=== PATIENT | male | born 1965 | race Caucasian/White ===

== ENCOUNTER → 2020-10-14 14:59 | Outpatient (CLI) | payer OTHER, SELFPAY ==
[2020-10-14 19:58] LABS: Add Manual Diff / Slide Review NO; Basophils Absolute Auto 100 /uL (0-100); Basophils Percent Auto 0.8 % (0-2); Eosinophils Absolute Auto 200 /uL (0-450); Eosinophils Percent Auto 2.4 % (2-4); Hematocrit 44.4 % (41-53); Hemoglobin 15.1 g/dL (13.5-17.5); Lymphocytes Absolute Auto 2500 /uL (1100-4500); Lymphocytes Percent Auto 24.1 % (25-40); Mean Corpuscular HGB Conc 34.1 % (30-36); Mean Corpuscular Hemoglobin 31.5 PG (26-34); Mean Corpuscular Volume 92.4 fL (80-100); Monocytes Absolute Auto 500 /uL (0-900); Monocytes Percent Auto 5.2 % (3-14); Neutrophils Absolute Auto 7100 /uL (1500-7000); Neutrophils Percent Auto 67.5 % (50-75); Platelet Count 234 X10^3/uL (150-400); Red Blood Cell Count 4.81 X10^6/uL (4.5-5.9); Red Cell Distribution Width 13.6 % (11.6-14.8); White Blood Cell Count 10.5 X10^3/uL (4.5-11.0)
[2020-10-14 20:04] LABS: Alanine Aminotransferase 28 IU/L (<50); Albumin 4.1 g/dL (3.5-5.0); Albumin Globulin Ratio 1.1 (1.0-2.8); Alkaline Phosphatase 130 U/L (38-126); Aspartate Aminotransferase 70 IU/L (17-59); BUN Creatinine Ratio 16.3 (6-22); Bilirubin Total 0.7 mg/dL (0.2-1.3); Blood Urea Nitrogen 14 mg/dL (9-20); C-Reactive Protein Quant 2.6 mg/dL (<1.0); Calcium 9.6 mg/dL (8.4-10.2); Carbon Dioxide 24 mmol/L (22-32); Chloride 106 mmol/L (98-107); Estimated Glomerular Filt Rate > 60.0 mL/min (>60); Globulin 3.8 g/dL (1.7-4.1); Glucose 106 mg/dL (70-100); HEMOLYSIS < 15 (0-50); Potassium 4.1 mmol/L (3.4-5.1); Sodium 139 mmol/L (137-145); Total Protein 7.9 g/dL (6.3-8.2)
[2020-10-14 20:10] LABS: Erythrocyte Sedimentation Rate 46 MM/HR (0-15)
[2020-10-14 20:33] LABS: TSH w/ Reflex to FT4 2.74 uIU/mL (0.47-4.68)
[2020-10-15 09:47] LABS: Rheumatoid Factor < 8.6 IU/mL (<12.0)
== END ==
PROVIDERS: PCP Family Medicine; Visit Provider Family Medicine
DX: F41.9 Anxiety disorder, unspecified (principal); R00.0 Tachycardia, unspecified; R61 Generalized hyperhidrosis
CPT/HCPCS: 80053; 84443; 85025; 85651; 86140; 86430

== ENCOUNTER → 2022-07-14 14:10 | Outpatient (CLI) | payer OTHER, SELFPAY ==
[2022-07-14 19:49] LABS: Alanine Aminotransferase 19 IU/L (<50); Albumin 3.7 g/dL (3.5-5.0); Albumin Globulin Ratio 1.1 (1.0-2.8); Alkaline Phosphatase 125 U/L (38-126); Aspartate Aminotransferase 26 IU/L (17-59); BUN Creatinine Ratio 14.3 (6-22); Bilirubin Total 0.5 mg/dL (0.2-1.3); Blood Urea Nitrogen 14 mg/dL (9-20); Calcium 8.8 mg/dL (8.4-10.2); Carbon Dioxide 27 mmol/L (22-32); Chloride 104 mmol/L (98-107); Estimated Glomerular Filt Rate > 60 mL/min (>60); Globulin 3.4 g/dL (1.7-4.1); Glucose 95 mg/dL (70-100); HEMOLYSIS < 15 (0-50); Potassium 4.1 mmol/L (3.4-5.1); Sodium 137 mmol/L (137-145); Total Protein 7.1 g/dL (6.3-8.2)
[2022-07-14 19:50] LABS: Add Manual Diff / Slide Review NO; Basophils Absolute Auto 100 /uL (0-100); Basophils Percent Auto 0.8 % (0-2); Eosinophils Absolute Auto 200 /uL (0-450); Eosinophils Percent Auto 2.9 % (2-4); Hematocrit 39.5 % (41-53); Hemoglobin 13.7 g/dL (13.5-17.5); Lymphocytes Absolute Auto 1600 /uL (1100-4500); Lymphocytes Percent Auto 23.1 % (25-40); Mean Corpuscular HGB Conc 34.7 % (30-36); Mean Corpuscular Hemoglobin 29.2 PG (26-34); Mean Corpuscular Volume 84.3 fL (80-100); Monocytes Absolute Auto 300 /uL (0-900); Monocytes Percent Auto 4.5 % (3-14); Neutrophils Absolute Auto 4700 /uL (1500-7000); Neutrophils Percent Auto 68.7 % (50-75); Platelet Count 216 X10^3/uL (150-400); Red Blood Cell Count 4.69 X10^6/uL (4.5-5.9); Red Cell Distribution Width 13.9 % (11.6-14.8); White Blood Cell Count 6.8 X10^3/uL (4.5-11.0)
[2022-07-14 19:53] LABS: Cholesterol 200 mg/dL (140-199); HDL Cholesterol 39 mg/dL (40-60); LDL Cholesterol Calculated 136 mg/dL (<100); Triglycerides 126 mg/dL (35-150)
[2022-07-14 20:08] LABS: TSH w/ Reflex to FT4 1.77 uIU/mL (0.47-4.68)
[2022-07-14 20:12] LABS: Prostate Specific Antigen Scrn 0.782 ng/mL (0.1-4.0)
[2022-07-16 00:48] LABS: Labcorp Hemoglobin (Hb) A1c 5.3 % (4.8-5.6)
== END ==
PROVIDERS: PCP Family Medicine; Visit Provider Family Medicine
DX: I10 Essential (primary) hypertension (principal); Z13.1 Encounter for screening for diabetes mellitus; Z12.5 Encounter for screening for malignant neoplasm of prostate; R00.2 Palpitations; F41.9 Anxiety disorder, unspecified
CPT/HCPCS: 80053; 80061; 83036; 84443; 85025; G0103

== ENCOUNTER → 2022-07-17 08:39 | Outpatient (CLI) | payer OTHER, SELFPAY ==
--- NOTE | 2022-07-17 08:41 | DI.RAD.S_ITS ---
PROCEDURE: XR HAND LT MIN 3V INDICATIONS: bilateral hand pain. EVAL for signs of autoimmune TECHNIQUE: 3 views of the hand(s) acquired. COMPARISON: [facility] ([place]), CR, XR HAND LT MIN 3V, 10/14/2020, 15:02. [facility] ([place]), CR, XR HAND RT MIN 3V, 10/14/2020, 15:02. FINDINGS: Bones: No fractures or dislocations. Concern for erosion at the radial styloid. Carpal bones are normally aligned. Mild interphalangeal joint space narrowing. No suspicious bony lesions. Soft tissues: No suspicious soft tissue calcifications. IMPRESSION: Possible developing erosion at the radial styloid. This could be due to an inflammatory arthropathy. Dictated by: Eduar Jimenez M.D. on 07/17/2022 at 11:00 Approved by: Eduar Jimenez M.D. on 07/17/2022 at 11:03
--- NOTE | 2022-07-17 08:41 | DI.RAD.S_ITS ---
PROCEDURE: XR HAND RT MIN 3V INDICATIONS: bilateral hand pain. EVAL for signs of autoimmune TECHNIQUE: 3 views of the hand(s) acquired. COMPARISON: [facility] ([place]), CR, XR HAND RT MIN 3V, 10/14/2020, 15:02. FINDINGS: Bones: No fractures or dislocations. Carpal bones are normally aligned. Mild interphalangeal joint space narrowing. No osseous erosion is identified. No suspicious bony lesions. Soft tissues: No suspicious soft tissue calcifications. IMPRESSION: No osseous erosion is confirmed. Mild degenerative changes are again seen. Dictated by: Eduar Jimenez M.D. on 07/17/2022 at 11:03 Approved by: Eduar Jimenez M.D. on 07/17/2022 at 11:06
--- NOTE | 2022-07-17 08:41 | DI.RAD.S_ITS ---
PROCEDURE: XR CERVICAL SPINE 2V OR 3V INDICATIONS: unable to rotate or extend or flex cervical spine TECHNIQUE: 3 view(s) of the cervical spine were acquired. COMPARISON: None. FINDINGS: Bones: No fractures or dislocations to the C6 level. The lateral masses of C1 appear intact on the odontoid view. Prominent bridging anterior cervical spine osteophytes. No suspicious bony lesions. Soft tissues: No prevertebral soft tissue swelling. IMPRESSION: Large bridging anterior cervical spine osteophytes. Dictated by: Eduar Jimenez M.D. on 07/17/2022 at 11:09 Approved by: Eduar Jimenez M.D. on 07/17/2022 at 11:10
--- NOTE | 2022-07-17 08:41 | DI.RAD.S_ITS ---
PROCEDURE: XR ELBOW RT MIN 3V INDICATIONS: unable to rotate or extend or flex cervical spine TECHNIQUE: 3 views of the elbow were acquired. COMPARISON: [facility], CR, XR ELBOW LT MIN 3V, 07/17/2022, 8:42. FINDINGS: Bones: No fractures or dislocations. Osteophytic lipping. No suspicious bony lesions. Soft tissues: No posterior elbow joint effusion. No suspicious soft tissue calcifications. IMPRESSION: Moderate degenerative change. Dictated by: Eduar Jimenez M.D. on 07/17/2022 at 11:06 Approved by: Eduar Jimenez M.D. on 07/17/2022 at 11:08
--- NOTE | 2022-07-17 08:41 | DI.RAD.S_ITS ---
PROCEDURE: XR ELBOW LT MIN 3V INDICATIONS: contractures of bilateral elbows, no trauma TECHNIQUE: 3 views of the elbow were acquired. COMPARISON: [facility], CR, XR ELBOW RT MIN 3V, 07/17/2022, 8:42. FINDINGS: Bones: No fractures or dislocations. Osteophytic lipping. No suspicious bony lesions. Soft tissues: No elbow joint effusion. No suspicious soft tissue calcifications. IMPRESSION: [id number] degenerative change. Dictated by: Eduar Jimenez M.D. on 07/17/2022 at 11:08 Approved by: Eduar Jimenez M.D. on 07/17/2022 at 11:09
--- NOTE | 2022-07-17 08:41 | DI.RAD.S_ITS ---
PROCEDURE: XR HIP W PEL IF DONE LT 2V INDICATIONS: left hip pain TECHNIQUE: AP pelvis with lateral view(s) of the left hip(s). COMPARISON: [facility], , CT THORAX/ABDOMEN/PELVIS WITH CONTRAST, 02/18/2004, 14:13. FINDINGS: Bones: No fractures or dislocations. Pelvic ring appears intact. No suspicious bony lesions. Severe bone on bone left hip DJD. This is demonstrable by joint space loss and osteophytosis. There is also subchondral cystic change. Moderate to severe right hip DJD. Soft tissues: The visualized bowel gas pattern is normal. No suspicious soft tissue calcifications. IMPRESSION: Severe left hip DJD. Moderate to severe right hip DJD. Dictated by: Eduar Jimenez M.D. on 07/17/2022 at 11:11 Approved by: Eduar Jimenez M.D. on 07/17/2022 at 11:12
--- NOTE | 2022-07-17 08:41 | DI.RAD.S_ITS ---
PROCEDURE: XR LUMBAR SPINE 2-3V INDICATIONS: chronic low back pain, history of surgery TECHNIQUE: 3 views of the lumbar spine were acquired. COMPARISON: [facility], , CT THORAX/ABDOMEN/PELVIS WITH CONTRAST, 02/18/2004, 14:13. FINDINGS: Bones: 5 [id number] vertebrae are present. There is normal bony alignment. Prominent osteophytes. Loss of disc space height at L4-L5 L5-S1. No vertebral body compression fractures. No suspicious bony lesions. Soft tissues: Overlying bowel gas pattern is normal. No suspicious soft tissue calcifications. IMPRESSION: Moderate degenerative change in the lumbar spine. Dictated by: Eduar Jimenez M.D. on 07/17/2022 at 10:58 Approved by: Eduar Jimenez M.D. on 07/17/2022 at 11:00
[2022-07-17 10:02] LABS: Rheumatoid Factor < 8.6 IU/mL (<12.0)
[2022-07-17 10:06] LABS: Erythrocyte Sedimentation Rate 36 MM/HR (0-15)
[2022-07-17 11:06] LABS: Folate 7.3 ng/mL (2.76-20.0); Vitamin B12 387 pg/mL (239-931)
[2022-07-17 11:08] LABS: C-Reactive Protein Quant 1.9 mg/dL (<1.0)
[2022-07-18 03:40] LABS: RPR Screen Non Reactive (Non Reactive)
[2022-07-18 08:41] LABS: Labcorp Hemoglobin (Hb) A1c 5.3 % (4.8-5.6)
[2022-07-20 21:19] LABS: ANA Screen, IFA Negative (.); CCP Antibodies IgG/IgA <1 units (0-19)
== END ==
PROVIDERS: PCP Family Medicine; Referring Provider Family Medicine; Visit Provider Family Medicine
DX: M47.816 Spondylosis without myelopathy or radiculopathy, lumbar region (principal); M47.817 Spondylosis without myelopathy or radiculopathy, lumbosacral region; M43.6 Torticollis; M25.78 Osteophyte, vertebrae; M16.0 Bilateral primary osteoarthritis of hip; M79.641 Pain in right hand; M79.642 Pain in left hand; M24.521 Contracture, right elbow; M24.522 Contracture, left elbow; M25.552 Pain in left hip; M25.641 Stiffness of right hand, not elsewhere classified; M25.642 Stiffness of left hand, not elsewhere classified; R41.9 Unspecified symptoms and signs involving cognitive functions and awareness; L40.50 Arthropathic psoriasis, unspecified; Z13.1 Encounter for screening for diabetes mellitus
CPT/HCPCS: 36415; 72040; 72100; 73080; 73130; 73502; 82607; 82746; 83036; 85651; 86038; 86140; 86200; 86430; 86592

== ENCOUNTER → 2022-12-07 14:36 | Outpatient (CLI) | payer OTHER, SELFPAY ==
[2022-12-07 20:30] LABS: Add Manual Diff / Slide Review NO; Basophils Absolute Auto 100 /uL (0-100); Basophils Percent Auto 0.6 % (0-2); Eosinophils Absolute Auto 100 /uL (0-450); Eosinophils Percent Auto 0.8 % (2-4); Hematocrit 40.8 % (41-53); Hemoglobin 13.7 g/dL (13.5-17.5); Lymphocytes Absolute Auto 2000 /uL (1100-4500); Lymphocytes Percent Auto 17.9 % (25-40); Mean Corpuscular HGB Conc 33.6 % (30-36); Mean Corpuscular Hemoglobin 28.5 PG (26-34); Mean Corpuscular Volume 84.8 fL (80-100); Monocytes Absolute Auto 600 /uL (0-900); Monocytes Percent Auto 5.2 % (3-14); Neutrophils Absolute Auto 8500 /uL (1500-7000); Neutrophils Percent Auto 75.5 % (50-75); Platelet Count 222 X10^3/uL (150-400); Red Blood Cell Count 4.81 X10^6/uL (4.5-5.9); Red Cell Distribution Width 13.7 % (11.6-14.8); White Blood Cell Count 11.2 X10^3/uL (4.5-11.0)
[2022-12-07 20:34] LABS: Alanine Aminotransferase 21 IU/L (<50); Albumin 4.2 g/dL (3.5-5.0); Albumin Globulin Ratio 1.3 (1.0-2.8); Alkaline Phosphatase 102 U/L (38-126); Aspartate Aminotransferase 29 IU/L (17-59); BUN Creatinine Ratio 16.7 (6-22); Bilirubin Total 0.6 mg/dL (0.2-1.3); Blood Urea Nitrogen 19 mg/dL (9-20); C-Reactive Protein Quant 2.3 mg/dL (<1.0); Calcium 9.3 mg/dL (8.4-10.2); Carbon Dioxide 23 mmol/L (22-32); Chloride 102 mmol/L (98-107); Estimated Glomerular Filt Rate > 60 mL/min (>60); Globulin 3.3 g/dL (1.7-4.1); Glucose 90 mg/dL (70-100); HEMOLYSIS < 15 (0-50); Potassium 4.5 mmol/L (3.4-5.1); Sodium 137 mmol/L (137-145); Total Protein 7.5 g/dL (6.3-8.2)
[2022-12-07 20:58] LABS: Erythrocyte Sedimentation Rate 32 MM/HR (0-15)
[2022-12-07 22:05] LABS: Hep C Virus Ab w/Reflex Quant NEGATIVE s/c (NEGATIVE)
[2022-12-07 22:06] LABS: Hepatitis B Surface Antigen NEGATIVE s/c (NEGATIVE)
[2022-12-09 06:00] LABS: Hepatitis B Surf AB Quant 4.4 mIU/mL (Immunity>9.9)
[2022-12-09 06:00] LABS: Hepatitis B Core Antibody Negative (Negative)
[2022-12-09 08:16] LABS: QuantiFERON Mitogen Value >10.00 IU/mL (.); QuantiFERON Nil Value 0.01 IU/mL (.); QuantiFERON TB Gold Plus Negative (Negative); QuantiFERON TB1 Ag Value 0.01 IU/mL (.); QuantiFERON TB2 Ag Value 0.02 IU/mL (.)
== END ==
PROVIDERS: PCP Family Medicine; Referring Provider Specialist/Technologist Athletic Trainer; Visit Provider Specialist/Technologist Athletic Trainer
DX: L40.50 Arthropathic psoriasis, unspecified (principal)
CPT/HCPCS: 80053; 85025; 85651; 86140; 86480; 86704; 86706; 86803; 87340

== ENCOUNTER → 2022-12-09 07:20 | Outpatient (CLI) | payer OTHER, SELFPAY ==
[2022-12-11 21:56] LABS: IGF-1 115 ng/mL (68-247)
== END ==
PROVIDERS: PCP Family Medicine; Visit Provider Family Medicine
DX: E66.01 Morbid (severe) obesity due to excess calories (principal); M79.2 Neuralgia and neuritis, unspecified; Q75.8 Other specified congenital malformations of skull and face bones
CPT/HCPCS: 84305

== ENCOUNTER → 2023-01-26 14:35 | Outpatient (CLI) | payer OTHER, SELFPAY ==
[2023-01-26 19:28] LABS: Alanine Aminotransferase 18 IU/L (<50); Albumin Globulin Ratio 1.3 (1.0-2.8); Alkaline Phosphatase 121 U/L (38-126); Aspartate Aminotransferase 29 IU/L (17-59); BUN Creatinine Ratio 20.2 (6-22); Bilirubin Total 0.5 mg/dL (0.2-1.3); Blood Urea Nitrogen 18 mg/dL (9-20); C-Reactive Protein Quant 2.7 mg/dL (<1.0); Calcium 9.2 mg/dL (8.4-10.2); Carbon Dioxide 26 mmol/L (22-32); Chloride 100 mmol/L (98-107); Estimated Glomerular Filt Rate > 60 mL/min (>60); Globulin 3.1 g/dL (1.7-4.1); Glucose 97 mg/dL (70-100); HEMOLYSIS < 15 (0-50); Potassium 4.2 mmol/L (3.4-5.1); Sodium 135 mmol/L (137-145); Total Protein 7.1 g/dL (6.3-8.2)
[2023-01-26 19:36] LABS: Add Manual Diff / Slide Review NO; Basophils Absolute Auto 100 /uL (0-100); Basophils Percent Auto 0.8 % (0-2); Eosinophils Absolute Auto 100 /uL (0-450); Eosinophils Percent Auto 1.5 % (2-4); Hematocrit 39.9 % (41-53); Hemoglobin 13.5 g/dL (13.5-17.5); Lymphocytes Absolute Auto 1600 /uL (1100-4500); Lymphocytes Percent Auto 23.1 % (25-40); Mean Corpuscular HGB Conc 33.9 % (30-36); Mean Corpuscular Hemoglobin 29.4 PG (26-34); Mean Corpuscular Volume 86.6 fL (80-100); Monocytes Absolute Auto 400 /uL (0-900); Monocytes Percent Auto 6.1 % (3-14); Neutrophils Absolute Auto 4700 /uL (1500-7000); Neutrophils Percent Auto 68.5 % (50-75); Platelet Count 213 X10^3/uL (150-400); Red Blood Cell Count 4.61 X10^6/uL (4.5-5.9); Red Cell Distribution Width 14.5 % (11.6-14.8); White Blood Cell Count 6.9 X10^3/uL (4.5-11.0)
[2023-01-26 19:41] LABS: Erythrocyte Sedimentation Rate 36 MM/HR (0-15)
== END ==
PROVIDERS: Specialist/Technologist Athletic Trainer; PCP Family Medicine
DX: L40.50 Arthropathic psoriasis, unspecified (principal)
CPT/HCPCS: 80053; 85025; 85651; 86140

== ENCOUNTER → 2023-04-13 10:23 | Outpatient (CLI) | payer OTHER, SELFPAY ==
[2023-04-13 19:21] LABS: Add Manual Diff / Slide Review NO; Basophils Absolute Auto 100 /uL (0-100); Eosinophils Absolute Auto 200 /uL (0-450); Hematocrit 39.3 % (41-53); Hemoglobin 13.3 g/dL (13.5-17.5); Lymphocytes Absolute Auto 2100 /uL (1100-4500); Lymphocytes Percent Auto 36.4 % (25-40); Mean Corpuscular HGB Conc 33.9 % (30-36); Mean Corpuscular Volume 85.7 fL (80-100); Monocytes Absolute Auto 500 /uL (0-900); Monocytes Percent Auto 8.9 % (3-14); Neutrophils Absolute Auto 2900 /uL (1500-7000); Neutrophils Percent Auto 49.7 % (50-75); Platelet Count 235 X10^3/uL (150-400); Red Blood Cell Count 4.58 X10^6/uL (4.5-5.9); Red Cell Distribution Width 14.1 % (11.6-14.8); White Blood Cell Count 5.8 X10^3/uL (4.5-11.0)
[2023-04-13 19:49] LABS: Erythrocyte Sedimentation Rate 37 MM/HR (0-15)
[2023-04-13 19:56] LABS: Alanine Aminotransferase 16 IU/L (<50); Albumin 3.9 g/dL (3.5-5.0); Albumin Globulin Ratio 1.1 (1.0-2.8); Alkaline Phosphatase 108 U/L (38-126); Aspartate Aminotransferase 23 IU/L (17-59); BUN Creatinine Ratio 13.5 (6-22); Bilirubin Total 0.5 mg/dL (0.2-1.3); Blood Urea Nitrogen 20 mg/dL (9-20); C-Reactive Protein Quant 1.9 mg/dL (<1.0); Calcium 9.2 mg/dL (8.4-10.2); Carbon Dioxide 25 mmol/L (22-32); Chloride 102 mmol/L (98-107); Estimated Glomerular Filt Rate 55 mL/min (>60); Globulin 3.5 g/dL (1.7-4.1); Glucose 91 mg/dL (70-100); HEMOLYSIS < 15 (0-50); Potassium 4.5 mmol/L (3.4-5.1); Sodium 137 mmol/L (137-145); Total Protein 7.4 g/dL (6.3-8.2)
[2023-04-13 20:24] LABS: TSH w/ Reflex to FT4 2.59 uIU/mL (0.47-4.68)
[2023-04-16 20:11] LABS: IGF-1 74 ng/mL (68-247)
== END ==
PROVIDERS: PCP Family Medicine; Visit Provider Family Medicine
DX: R41.0 Disorientation, unspecified (principal); N39.0 Urinary tract infection, site not specified; M35.9 Systemic involvement of connective tissue, unspecified; I10 Essential (primary) hypertension; E66.01 Morbid (severe) obesity due to excess calories; M79.2 Neuralgia and neuritis, unspecified; Q75.8 Other specified congenital malformations of skull and face bones
CPT/HCPCS: 80053; 84305; 84443; 85025; 85651; 86140; 87077; 87086; 87186

== ENCOUNTER → 2023-07-02 11:03 | Outpatient (CLI) | payer OTHER, SELFPAY ==
[2023-07-02 19:10] LABS: Alanine Aminotransferase 15 IU/L (<50); Albumin 4.1 g/dL (3.5-5.0); Albumin Globulin Ratio 1.2 (1.0-2.8); Alkaline Phosphatase 117 U/L (38-126); Aspartate Aminotransferase 23 IU/L (17-59); BUN Creatinine Ratio 21.8 (6-22); Bilirubin Total 0.7 mg/dL (0.2-1.3); Blood Urea Nitrogen 41 mg/dL (9-20); Calcium 9.1 mg/dL (8.4-10.2); Carbon Dioxide 25 mmol/L (22-32); Chloride 107 mmol/L (98-107); Estimated Glomerular Filt Rate 41 mL/min (>60); Globulin 3.4 g/dL (1.7-4.1); Glucose 90 mg/dL (70-100); HEMOLYSIS < 15 (0-50); Potassium 4.3 mmol/L (3.4-5.1); Sodium 140 mmol/L (137-145); Total Protein 7.5 g/dL (6.3-8.2)
[2023-07-02 19:40] LABS: TSH w/ Reflex to FT4 1.55 uIU/mL (0.47-4.68)
[2023-07-02 19:43] LABS: Add Manual Diff / Slide Review NO; Basophils Absolute Auto 100 /uL (0-100); Basophils Percent Auto 1.2 % (0-2); Eosinophils Absolute Auto 200 /uL (0-450); Eosinophils Percent Auto 3.4 % (2-4); Ferritin 244 ng/mL (18-464); Hematocrit 38.3 % (41-53); Hemoglobin 12.5 g/dL (13.5-17.5); Lymphocytes Absolute Auto 2200 /uL (1100-4500); Lymphocytes Percent Auto 44.5 % (25-40); Mean Corpuscular HGB Conc 32.7 % (30-36); Mean Corpuscular Hemoglobin 28.8 PG (26-34); Mean Corpuscular Volume 88.1 fL (80-100); Monocytes Absolute Auto 100 /uL (0-900); Monocytes Percent Auto 1.2 % (3-14); Neutrophils Absolute Auto 2400 /uL (1500-7000); Neutrophils Percent Auto 49.7 % (50-75); Platelet Count 167 X10^3/uL (150-400); Red Blood Cell Count 4.35 X10^6/uL (4.5-5.9); Red Cell Distribution Width 14.5 % (11.6-14.8); White Blood Cell Count 4.9 X10^3/uL (4.5-11.0)
[2023-07-02 20:14] LABS: Folate > 20.0 ng/mL (2.76-20.0); Vitamin B12 Reflex MMA if <400 343 pg/mL (239-931)
[2023-07-06 09:15] LABS: Methylmalonic Acid,Serum 309 nmol/L (0-378)
== END ==
PROVIDERS: PCP Family Medicine; Visit Provider Family Medicine
DX: R53.83 Other fatigue (principal); I10 Essential (primary) hypertension; F41.9 Anxiety disorder, unspecified; Z79.1 Long term (current) use of non-steroidal anti-inflammatories (NSAID); L40.50 Arthropathic psoriasis, unspecified; Z71.3 Dietary counseling and surveillance
CPT/HCPCS: 80053; 82607; 82728; 82746; 83921; 84443; 85025

== ENCOUNTER 2023-07-29 18:58 | Emergency (ER) | payer OTHER, SELFPAY ==
[2023-07-29 19:04] VITALS: BP 175/81; PULSE 108; RESP 24; TEMP 36.4; O2SAT 98; BMI 40.1
[2023-07-29 19:32] LABS: Add Manual Diff / Slide Review NO; Basophils Absolute Auto 100 /uL (0-100); Basophils Percent Auto 0.7 % (0-2); Eosinophils Absolute Auto 0 /uL (0-450); Eosinophils Percent Auto 0.2 % (2-4); Hematocrit 38.2 % (41-53); Lymphocytes Absolute Auto 2000 /uL (1100-4500); Lymphocytes Percent Auto 20.8 % (25-40); Mean Corpuscular Hemoglobin 29.1 PG (26-34); Mean Corpuscular Volume 85.5 fL (80-100); Monocytes Absolute Auto 1000 /uL (0-900); Monocytes Percent Auto 10.4 % (3-14); Neutrophils Absolute Auto 6600 /uL (1500-7000); Neutrophils Percent Auto 67.9 % (50-75); Platelet Count 202 X10^3/uL (150-400); Red Blood Cell Count 4.46 X10^6/uL (4.5-5.9); Red Cell Distribution Width 14.7 % (11.6-14.8); White Blood Cell Count 9.7 X10^3/uL (4.5-11.0)
[2023-07-29 19:56] LABS: Alanine Aminotransferase 18 IU/L (<50); Albumin Globulin Ratio 1.4 (1.0-2.8); Alkaline Phosphatase 130 U/L (38-126); Aspartate Aminotransferase 35 IU/L (17-59); BUN Creatinine Ratio 11.1 (6-22); Bilirubin Total 1.4 mg/dL (0.2-1.3); Blood Urea Nitrogen 24 mg/dL (9-20); Carbon Dioxide 15 mmol/L (22-32); Chloride 103 mmol/L (98-107); Estimated Glomerular Filt Rate 35 mL/min (>60); Globulin 3.5 g/dL (1.7-4.1); Glucose 106 mg/dL (70-100); HEMOLYSIS < 15 (0-50); Lipase 169 U/L (23-300); Potassium 3.2 mmol/L (3.4-5.1); Sodium 136 mmol/L (137-145); Total Protein 8.5 g/dL (6.3-8.2)
--- NOTE | 2023-07-29 20:04 | DI.CT.S_ITS ---
PROCEDURE: CT ABDOMEN PELVIS W CON INDICATIONS: 8 DAYS LLQ/SUPRAPUBIC PAIN TECHNIQUE: After the administration of intravenous contrast, axial sections acquired from the lung bases to the pubic symphysis. Coronal and sagittal reformats were performed. For radiation dose reduction, the following was used: automated exposure control, adjustment of mA and/or kV according to patient size. COMPARISON: [facility] [place], CR, XR PELVIS WITH LATERAL HIP LEFT, 05/28/2023, 11:32. RG, CT THORAX/ABDOMEN/PELVIS WITH CONTRAST, 02/18/2004, 14:13. FINDINGS: Image quality: Diagnostic. Lower Chest: No significant findings. ABDOMEN: Liver: No solid mass. Steatosis. Gallbladder: No radiopaque gallstones or wall thickening. Biliary ducts: No biliary dilation. Pancreas: No ductal dilation. Spleen: Size is within normal limits. Adrenal Glands: No adrenal nodules. Kidneys and Ureters: No hydronephrosis. No solid mass. No complex renal cystic lesion which requires follow up. Stomach and Bowel: Normal colonic caliber, without significant wall thickening. Minimal scattered diverticula without associated inflammatory change. Peritoneum: No abnormal intraperitoneal fluid. No free air. Ventral Wall: No significant ventral hernia. Abdominal Nodes: No retroperitoneal or mesenteric adenopathy by size criteria. Vessels: Aorta and inferior vena cava are normal in size. PELVIS: Pelvic Organs: Unremarkable. Bladder: No bladder wall thickening, accounting for underdistention. Pelvic Nodes: No enlarged lymph nodes. Miscellaneous: No inguinal hernias are seen. Bones: No aggressive osseous abnormality. Prominent degenerative changes within the visualized thoracolumbar spine. IMPRESSION: Diverticulosis. Dictated by: Christy Adams M.D. on 07/29/2023 at 21:54 Approved by: Christy Adams M.D. on 07/29/2023 at 22:01
--- NOTE | 2023-07-29 20:09 | ED.ABDPAIN ---
HPI - Abdominal Pain General Chief Complaint: Abdominal Pain Stated Complaint: sweating, abd pain, emesis, anorexia high risk Time Seen by Provider: 07/29/23 19:56 Source: patient Mode of arrival: Wheelchair History of Present Illness HPI narrative: 57-year-old male with history psoriatic arthritis on methotrexate, degenerative joint disease presents by private vehicle from home for 8 days of LLQ abdominal pain, nausea. Patient states that he has lost weight in the last several months, however this is mostly intentional. Over the last several days however he has not been able to eat or drink very much due to significant nausea. He states that he has been tremulous and sweaty. Due to his chronic medical issues he was referred from his primary clinic to the emergency department for evaluation. Related Data Home Medications Medication Instructions Recorded Confirmed folic acid 1 mg tablet 1 mg PO DAILY 12/08/22 07/29/23 methotrexate sodium (PF) 25 mg/mL 25 mg SUBCUT QWEEK 12/08/22 07/29/23 injection solution trazodone 100 mg tablet 100 mg PO ONCE PM for insomnia 06/01/23 07/29/23 Previous Rx's Medication Instructions Recorded diltiazem HCl 120 mg See Rx Instructions .Route 06/23/22 capsule,extended release 24 hr .COMPLEX #30 caps betamethasone valerate 0.1 % 1 applic topical BID PRN Psoriasis 08/14/22 topical ointment #45 grams semaglutide 2 mg/dose (8 mg/3 mL) 2 mg (0.75 mL) SUBCUT QWEEK #3 mL 08/14/22 subcutaneous pen injector (Ozempic) lisinopril 10 1 tab PO DAILY #90 tabs 12/30/22 mg-hydrochlorothiazide 12.5 mg tablet semaglutide 3 mg tablet 3 mg PO DAILY 30 days #30 tabs 02/23/23 semaglutide 7 mg tablet 7 mg PO DAILY #30 tabs 02/23/23 sertraline 100 mg tablet 150 mg (1.5 x 100 mg) PO DAILY 02/23/23 #120 tabs clotrimazole 1 % topical cream 1 applic topical BID #60 grams 04/06/23 pregabalin 225 mg capsule 225 mg PO BID #60 caps 04/14/23 nitrofurantoin macrocrystal 100 mg 100 mg PO BID for urine infection 04/15/23 capsule #20 caps celecoxib 200 mg capsule 200 mg PO BID PRN for pain #60 caps 05/05/23 pregabalin 150 mg capsule 150 mg PO BID for pain, decrease 06/01/23 dose #60 caps fluconazole 150 mg tablet 150 mg PO QWEEK do NOT take daily. 07/01/23 yeast infection #6 tabs pregabalin 75 mg capsule 75 mg PO BID weaning off #60 caps 07/01/23 hydroxyzine HCl 50 mg tablet 50 mg PO ONCE PM PRN for itch #90 07/08/23 tabs promethazine 25 mg tablet 25 mg PO Q6H PRN nausea and 07/29/23 vomiting #30 tabs Allergies Allergy/AdvReac Type Severity Reaction Status Date / Time No Known Drug Allergies Allergy Verified 07/29/23 14:55 Review of Systems Review of Systems Narrative: See HPI Patient History Medical History Psoriatic arthritis Arthritis Left hip pain BPH (benign prostatic hyperplasia) Allergic dermatitis Morbid obesity due to excess calories Social History Smoking Status: Former smoker Smoking Status: Former smoker Substance Use Type: marijuana Exam Initial Vital Signs Initial Vital Signs: Vital Signs Temperature 97.6 F 07/29/23 19:04 Pulse Rate 108 H 07/29/23 19:04 Respiratory Rate 24 07/29/23 19:04 Blood Pressure 175/81 H 07/29/23 19:04 Pulse Oximetry 98 07/29/23 19:04 Oxygen Delivery Method Room Air 07/29/23 19:04 Const: Awake, alert, appears chronically unwell, older than stated age Cardiac: Tachycardia, regular rhythm RESP: unlabored, clear bilaterally, no wheezing GI: Soft, generalized tenderness to deep palpation without rebound or guarding Skin: Warm, Dry, intact, no rashes Neuro: AO x3, CN II-XII grossly intact, moves all extremities Course Orders Ordered: Discontinued Medications Acetaminophen (Ofirmev) 1,000 mg in 100 mls @ 400 mls/hr IV NOW ONE Stop: 07/29/23 20:18 Last Infusion: 07/29/23 21:27 Dose: Infused Documented By: DKLolly Admin: 07/29/23 21:04 Dose: 400 mls/hr Documented By: SAUNDRA Sodium Chloride (Normal Saline 0.9%) 1,000 mls @ 1,000 mls/hr IV BOLUS ONE Stop: 07/29/23 21:03 Last Infusion: 07/29/23 23:14 Dose: Infused Documented By: Admin: 07/29/23 21:10 Dose: 1,000 mls/hr Documented By: SAUNDRA Morphine Sulfate (Morphine 4 Mg/Ml Inj) 4 mg IV NOW ONE Stop: 07/29/23 21:04 Last Admin: 07/29/23 21:06 Dose: 4 mg Documented By: SAUNDRA Ondansetron HCl (Ondansetron 4 Mg Odt) 4 mg PO NOW PRN PRN Reason: Nausea And Vomiting Ondansetron HCl (Ondansetron 4 Mg/2 Ml Inj) 4 mg IV NOW PRN PRN Reason: Nausea And Vomiting Last Admin: 07/29/23 21:12 Dose: 4 mg Documented By: SAUNDRA Promethazine HCl (Promethazine 25 Mg Tablet) 50 mg PO NOW ONE Stop: 07/29/23 23:09 Last Admin: 07/29/23 23:14 Dose: 50 mg Documented By: ROSA Vital Signs Vital signs: Vital Signs - 8 hr 07/29/23 22:30 07/29/23 23:37 Pulse Rate 81 80 Respiratory Rate 19 20 Blood Pressure 143/89 H 128/86 Pulse Oximetry 98 100 MDM - Abdominal Pain Lab Data 07/29/23 19:25 07/29/23 19:25 Labs: Lab Results 07/29/23 Range/Units 19:25 WBC 9.7 (4.5-11.0) X10^3/uL RBC 4.46 L (4.5-5.9) X10^6/uL Hgb 13.0 L (13.5-17.5) g/dL Hct 38.2 L (41-53) % MCV 85.5 (80-100) fL MCH 29.1 (26-34) PG MCHC 34.0 (30-36) % RDW 14.7 (11.6-14.8) % Plt Count 202 (150-400) X10^3/uL Neut % (Auto) 67.9 (50-75) % Lymph % (Auto) 20.8 L (25-40) % [place] % (Auto) 10.4 (3-14) % Eos % (Auto) 0.2 L (2-4) % Baso % (Auto) 0.7 (0-2) % Neut # (Auto) 6600 (1909-3207) /uL Lymph # (Auto) 2000 (6852-7675) /uL [place] # (Auto) 1000 H (0-900) /uL Eos # (Auto) 0 (0-450) /uL Baso # (Auto) 100 (0-100) /uL Sodium 136 L (137-145) mmol/L Potassium 3.2 L (3.4-5.1) mmol/L Chloride 103 (98-107) mmol/L Carbon Dioxide 15 L (22-32) mmol/L BUN 24 H (9-20) mg/dL Creatinine 2.16 H (0.66-1.25) mg/dL Estimated GFR 35 L (>60) mL/min BUN/Creatinine Ratio 11.1 (6-22) Glucose 106 H (70-100) mg/dL Calcium 10.0 (8.4-10.2) mg/dL Total Bilirubin 1.4 H (0.2-1.3) mg/dL AST 35 (17-59) IU/L ALT 18 (<50) IU/L Alkaline Phosphatase 130 H (38-126) U/L Total Protein 8.5 H (6.3-8.2) g/dL Albumin 5.0 (3.5-5.0) g/dL Globulin 3.5 (1.7-4.1) g/dL Albumin/Globulin Ratio 1.4 (1.0-2.8) Lipase 169 (23-300) U/L Imaging Data CT scan - abdomen/pelvis: Radiologist's Impression: PROCEDURE: CT ABDOMEN PELVIS W CON INDICATIONS: 8 DAYS LLQ/SUPRAPUBIC PAIN TECHNIQUE: After the administration of intravenous contrast, axial sections acquired from the lung bases to the pubic symphysis. Coronal and sagittal reformats were performed. For radiation dose reduction, the following was used: automated exposure control, adjustment of mA and/or kV according to patient size. COMPARISON: [facility], CR, XR PELVIS WITH LATERAL HIP LEFT, 05/28/2023, 11:32. RG, CT THORAX/ABDOMEN/PELVIS WITH CONTRAST, 02/18/2004, 14:13. FINDINGS: Image quality: Diagnostic. Lower Chest: No significant findings. ABDOMEN: Liver: No solid mass. Steatosis. Gallbladder: No radiopaque gallstones or wall thickening. Biliary ducts: No biliary dilation. Pancreas: No ductal dilation. Spleen: Size is within normal limits. Adrenal Glands: No adrenal nodules. Kidneys and Ureters: No hydronephrosis. No solid mass. No complex renal cystic lesion which requires follow up. Stomach and Bowel: Normal colonic caliber, without significant wall thickening. Minimal scattered diverticula without associated inflammatory change. Peritoneum: No abnormal intraperitoneal fluid. No free air. Ventral Wall: No significant ventral hernia. Abdominal Nodes: No retroperitoneal or mesenteric adenopathy by size criteria. Vessels: Aorta and inferior vena cava are normal in size. PELVIS: Pelvic Organs: Unremarkable. Bladder: No bladder wall thickening, accounting for underdistention. Pelvic Nodes: No enlarged lymph nodes. Miscellaneous: No inguinal hernias are seen. Bones: No aggressive osseous abnormality. Prominent degenerative changes within the visualized thoracolumbar spine. IMPRESSION: Diverticulosis. Dictated by: Christy Adams M.D. on 07/29/2023 at 21:54 Approved by: Christy Adams M.D. on 07/29/2023 at 22:01 MDM Narrative Medical decision making narrative: Chronically unwell appearing patient presenting for greater than 1 week of symptoms. Initially patient seems to be quite tremulous and uncomfortable, however when taken to the exam room and allowed to rest patient's vital signs normalized. Abdomen is soft, there is vague tenderness to deep palpation in the left lower quadrant of the abdomen, no peritoneal signs. Nausea medications and IV fluids ordered. Patient states he would like some pain medications but is very opposed to opiates unless absolutely necessary. Laboratory work is reviewed. WBC count 9.7, hemoglobin 13, platelets 202, no neutrophil predominance. Sodium 136, potassium 3.2, BUN 24, creatinine 2.16, GFR 35. Patient does appear to have a slow but progressive worsening of his kidney function ever since March of 2023. Other laboratory work is unremarkable. Patient reassessed, resting in ED bed, vital signs stabilized. No longer diaphoretic or tremulous. Patient in his advised of all lab and imaging findings, stated I do not have a good explanation for his symptoms but recommended close PCP as well as GI follow up. Antinausea medication sent to pharmacy of choice. Patient's states she already has zofran at home, phenergan sent if zofran does not work well for patient. Discharge Plan Departure Patient Disposition: Home Clinical Impression: Abdominal pain Instructions: DI for Abdominal Pain-Adult Activity Restrictions/Additional Instructions: Your laboratory work today did not show any sign of infection or inflammation. Your kidney function was slightly elevated compared to previous, but your electrolytes are reassuring. Your CT scan showed that you have diverticulosis but no other acute abnormal process. Please follow up with the primary care physician. At this time I would recommend a GI follow up for your persistent abdominal pain. Antinausea medication has been sent to your pharmacy. Prescriptions: New promethazine 25 mg tablet 25 mg PO Q6H PRN (Reason: nausea and vomiting) Qty: 30 0RF No Action lisinopril-hydrochlorothiazide 10-12.5 mg tablet 1 tab PO DAILY Qty: 90 1RF nitrofurantoin macrocrystal 100 mg capsule 100 mg PO BID Qty: 20 0RF Rx Instructions: must administer with a meal/food celecoxib 200 mg capsule 200 mg PO BID PRN (Reason: for pain) Qty: 60 5RF hydroxyzine HCl 50 mg tablet 50 mg PO ONCE PM PRN (Reason: for itch) Qty: 90 0RF diltiazem HCl 120 mg capsule,extended release 24hr See Rx Instructions .ROUTE .COMPLEX Qty: 30 5RF Hold Instructions: lightnheaded with nl BP Dose Instruction: TAKE ONE CAPSULE BY MOUTH AT BEDTIME Rx Instructions: TAKE ONE CAPSULE BY MOUTH AT BEDTIME betamethasone valerate 0.1 % ointment 1 applic topical BID PRN (Reason: Psoriasis) Qty: 45 5RF Rx Instructions: Apply sparingly to affected areas Ozempic 2 mg/dose (8 mg/3 mL) pen injector 2 mg SUBCUT QWEEK Qty: 3 0RF Hold Instructions: insurance rejected Rx Instructions: 0.25 mg Q7d for at least 4 wk, then increase to 0.5mg Q7d for at least 4 wk, then increase to 1.0mg Q7d for at least 4wk, then 2.0mg Q7d and stay at this dose.. folic acid 1 mg tablet 1 mg PO DAILY methotrexate sodium (PF) 25 mg/mL solution 25 mg SUBCUT QWEEK Patient Comments: [NO ORIGINAL SIG] sertraline 100 mg tablet 150 mg PO DAILY Qty: 120 1RF Rx Instructions: Increase dose to 1.5 tablets q.day semaglutide 3 mg tablet 3 mg PO DAILY 30 Days Qty: 30 1RF Hold Instructions: insurance rejected Rx Instructions: For 1 month, Then increase dose to 7 mg per day semaglutide 7 mg tablet 7 mg PO DAILY Qty: 30 2RF Hold Instructions: insurance rejected Rx Instructions: Start 7 mg after completing 30 days of the 3 mg dose. Follow up with me after starting the 7 mg dose clotrimazole 1 % cream 1 applic topical BID Qty: 60 2RF Rx Instructions: to rash pregabalin 225 mg capsule 225 mg PO BID Qty: 60 1RF Hold Instructions: decreasing to 150mg Rx Instructions: stop 150mg BID. increase to 225mg BID trazodone 100 mg tablet 100 mg PO ONCE PM pregabalin 150 mg capsule 150 mg PO BID Qty: 60 2RF Rx Instructions: decrease dose (stop 225mg dose) fluconazole 150 mg tablet 150 mg PO QWEEK Qty: 6 0RF Rx Instructions: as a single dose- do not take daily. repeat every 7 days for 5 more weeks. pregabalin 75 mg capsule 75 mg PO BID Qty: 60 1RF Referrals: Jailene Addison MD [Primary Care Provider] - Stand Alone Forms: Patient Portal/API
[2023-07-29] MEDS: ACETAMINOPHEN IV 1,000 MG/100 ML VIAL 400 MG IV (21:04)
[2023-07-29] MEDS: MORPHINE 4 MG/ML INJ IV (21:06)
[2023-07-29] MEDS: SODIUM CHLORIDE 0.9% 1,000 ML 1000 ML IV (21:10)
[2023-07-29] MEDS: ONDANSETRON 4 MG/2 ML INJ IV (21:12)
[2023-07-29 22:30] VITALS: BP 143/89; PULSE 81; RESP 19; O2SAT 98
[2023-07-29] MEDS: PROMETHAZINE 25 MG TABLET 50 MG PO (23:14)
[2023-07-29 23:37] VITALS: BP 128/86; PULSE 80; RESP 20; O2SAT 100
== END 2023-07-29 23:38 | disposition home or self-care (01) ==
PROVIDERS: Emergency Provider Emergency Medicine; PCP Family Medicine
DX: R10.32 Left lower quadrant pain (principal); Z79.899 Other long term (current) drug therapy
CPT/HCPCS: 36415; 74177; 80053; 83690; 85025; 93005; 96365; 96375; 99284; J0136; J2270; J2405; Q9967

== ENCOUNTER → 2023-07-30 08:02 | Outpatient (CLI) | payer OTHER, SELFPAY | PROVIDERS: PCP Family Medicine; Visit Provider Family Medicine | DX: R10.9 Unspecified abdominal pain (principal) | CPT/HCPCS: 87086 ==

== ENCOUNTER → 2023-08-11 11:36 | Outpatient (CLI) | payer OTHER, SELFPAY ==
[2023-08-11 19:53] LABS: Alanine Aminotransferase 23 IU/L (<50); Albumin 4.3 g/dL (3.5-5.0); Albumin Globulin Ratio 1.5 (1.0-2.8); Alkaline Phosphatase 110 U/L (38-126); Aspartate Aminotransferase 34 IU/L (17-59); BUN Creatinine Ratio 11.9 (6-22); Bilirubin Total 0.8 mg/dL (0.2-1.3); Blood Urea Nitrogen 14 mg/dL (9-20); Calcium 9.3 mg/dL (8.4-10.2); Carbon Dioxide 24 mmol/L (22-32); Chloride 108 mmol/L (98-107); Estimated Glomerular Filt Rate > 60 mL/min (>60); Globulin 2.9 g/dL (1.7-4.1); Glucose 94 mg/dL (70-100); HEMOLYSIS < 15 (0-50); Potassium 4.1 mmol/L (3.4-5.1); Sodium 141 mmol/L (137-145); Total Protein 7.2 g/dL (6.3-8.2)
[2023-08-11 19:56] LABS: Add Manual Diff / Slide Review NO; Basophils Absolute Auto 100 /uL (0-100); Basophils Percent Auto 1.2 % (0-2); Eosinophils Absolute Auto 100 /uL (0-450); Eosinophils Percent Auto 1.3 % (2-4); Hematocrit 36.8 % (41-53); Hemoglobin 12.4 g/dL (13.5-17.5); Lymphocytes Absolute Auto 2500 /uL (1100-4500); Lymphocytes Percent Auto 28.9 % (25-40); Mean Corpuscular HGB Conc 33.8 % (30-36); Monocytes Absolute Auto 600 /uL (0-900); Monocytes Percent Auto 7.2 % (3-14); Neutrophils Absolute Auto 5200 /uL (1500-7000); Neutrophils Percent Auto 61.4 % (50-75); Platelet Count 294 X10^3/uL (150-400); Red Blood Cell Count 4.28 X10^6/uL (4.5-5.9); Red Cell Distribution Width 16.9 % (11.6-14.8); White Blood Cell Count 8.6 X10^3/uL (4.5-11.0)
[2023-08-11 20:22] LABS: TSH w/ Reflex to FT4 2.12 uIU/mL (0.47-4.68)
== END ==
PROVIDERS: PCP Family Medicine; Visit Provider Family Medicine
DX: N18.9 Chronic kidney disease, unspecified (principal); D64.9 Anemia, unspecified; R00.0 Tachycardia, unspecified
CPT/HCPCS: 80053; 84443; 85025

== ENCOUNTER → 2023-09-21 10:36 | Outpatient (CLI) | payer OTHER, SELFPAY ==
[2023-09-21 19:43] LABS: Add Manual Diff / Slide Review NO; Basophils Absolute Auto 100 /uL (0-100); Basophils Percent Auto 0.6 % (0-2); Eosinophils Absolute Auto 100 /uL (0-450); Eosinophils Percent Auto 1.1 % (2-4); Hemoglobin 11.8 g/dL (13.5-17.5); Lymphocytes Absolute Auto 1800 /uL (1100-4500); Lymphocytes Percent Auto 19.3 % (25-40); Mean Corpuscular HGB Conc 33.7 % (30-36); Mean Corpuscular Hemoglobin 30.2 PG (26-34); Mean Corpuscular Volume 89.4 fL (80-100); Monocytes Absolute Auto 600 /uL (0-900); Monocytes Percent Auto 6.1 % (3-14); Neutrophils Absolute Auto 6800 /uL (1500-7000); Neutrophils Percent Auto 72.9 % (50-75); Platelet Count 230 X10^3/uL (150-400); Red Blood Cell Count 3.91 X10^6/uL (4.5-5.9); Red Cell Distribution Width 15.7 % (11.6-14.8); White Blood Cell Count 9.3 X10^3/uL (4.5-11.0)
[2023-09-21 19:46] LABS: Prothrombin Time 11.7 SECONDS (9.4-12.5)
[2023-09-21 19:53] LABS: Alanine Aminotransferase 19 IU/L (<50); Albumin Globulin Ratio 1.3 (1.0-2.8); Alkaline Phosphatase 118 U/L (38-126); Aspartate Aminotransferase 33 IU/L (17-59); BUN Creatinine Ratio 19.2 (6-22); Bilirubin Total 0.7 mg/dL (0.2-1.3); Blood Urea Nitrogen 23 mg/dL (9-20); Carbon Dioxide 24 mmol/L (22-32); Chloride 106 mmol/L (98-107); Estimated Glomerular Filt Rate > 60 mL/min (>60); Glucose 95 mg/dL (70-100); HEMOLYSIS < 15 (0-50); Lactate Dehydrogenase 157 U/L (120-246); Potassium 4.1 mmol/L (3.4-5.1); Sodium 138 mmol/L (137-145)
[2023-09-21 19:54] LABS: Hemoglobin A1C% w Est Avg Glu 4.5 % (4.0-6.0)
[2023-09-21 19:59] LABS: HEMOLYSIS < 15 (0-50); Iron 68 ug/dL (49-181)
[2023-09-21 20:12] LABS: Percent Iron Saturation 25 % (20-50); Total Iron Binding Capacity 275 ug/dL (261-462); Transferrin 207 mg/dL (206-381)
[2023-09-21 20:23] LABS: Ferritin 199 ng/mL (18-464)
[2023-09-23 03:36] LABS: Haptoglobin 207 mg/dL (29-370)
== END ==
PROVIDERS: PCP Family Medicine; Visit Provider Family Medicine
DX: Z01.812 Encounter for preprocedural laboratory examination (principal); D64.9 Anemia, unspecified; I12.9 Hypertensive chronic kidney disease with stage 1 through stage 4 chronic kidney disease, or unspecified chronic kidney disease; N18.9 Chronic kidney disease, unspecified; R74.8 Abnormal levels of other serum enzymes; R00.0 Tachycardia, unspecified; L40.50 Arthropathic psoriasis, unspecified; R11.2 Nausea with vomiting, unspecified
CPT/HCPCS: 80053; 82728; 83010; 83036; 83540; 83550; 83615; 85025; 85610

== ENCOUNTER 2023-09-29 07:01 | Day surgery (SDC) | payer OTHER, SELFPAY ==
[2023-09-24 08:50] VITALS: BMI 44.5
[2023-09-29] VITALS (10 sets, daily range): BP systolic 117–145; BP diastolic 75–88; PULSE 89–105; RESP 11–20; TEMP 36.2–36.6; O2SAT 98–100; BMI 39.2
--- NOTE | 2023-09-29 | DI.RAD.S_ITS ---
PROCEDURE: XR PELVIS 1-2V INDICATIONS: INTRA OP TECHNIQUE: Intra-operative view of the pelvis and hip acquired. COMPARISON: None. FINDINGS: Bones: Intraoperative devices prior to placement of arthroplasty prostheses are in expected positions. No fractures or suspicious bony lesions. Soft tissues: Overlying surgical retractors are present, along with other intraoperative changes. IMPRESSION: Total left hip arthroplasty in progress Approved by: Brian Beauchamp M.D. on 09/29/2023 at 10:30
--- NOTE | 2023-09-29 07:29 | DI.RAD.S_ITS ---
PROCEDURE: XR HIP W PEL IF DONE LT 2V INDICATIONS: JOVAN TECHNIQUE: AP pelvis and lateral view of the hip acquired. COMPARISON: [facility], CR, XR HIP W PEL IF DONE LT 2V, 07/17/2022, 8:42. FINDINGS: Bones: Patient is status post left hip arthroplasty, with hardware components in expected positions. The hip joint appears congruent. The visualized bony structures appear intact. Soft tissues: Overlying postoperative changes are noted. No suspicious soft tissue densities. IMPRESSION: Expected post-operative appearance of a hip arthroplasty. Approved by: Zonia Luevano M.D.,Ph.D. on 09/29/2023 at 12:14
[2023-09-29] MEDS: CELECOXIB 200 MG CAPSULE 400 MG PO (07:49)
[2023-09-29] MEDS: ACETAMINOPHEN 325 MG TABLET 975 MG PO (07:52)
[2023-09-29] MEDS: VANCOMYCIN 1,000 MG/200 ML PIGGYBACK 200 MG IV (07:56)
[2023-09-29] MEDS: LACTATED RINGERS 1,000 ML 42 ML IV ×2 (08:22→11:12)
--- NOTE | 2023-09-29 08:37 | PM.PREOP ---
Pre-operative Note Interval Note History & Physical reviewed/Exam performed by Physician: Yes Changes to H&P: No
--- NOTE | 2023-09-29 08:38 | P.OP_ITS ---
Operative Date/Time/Diagnoses Date of procedure: 09/29/23 Time of procedure: 08:55 Pre-op diagnosis: left hip OA/ AVN severe Post-op diagnosis: same Procedure & Clinicians Procedure: Left total hip posterior approach Same procedure as scheduled: Yes Indications: The patient has had progressively worsening left hip pain with radiographic martínez ges consistent with arthritis. Non-operative management has failed and the patient has requested total hip replacement. The risks, benefits and alternatives to surgery were discussed with the patient prior to proceeding. Risks discussed included, but were not limited to, failure to relieve pain, leg length discrepancy, dislocation, stiffness, infection, nerve damage, deep venous thrombosis, pulmonary embolism, stroke, coma, heart attack, permanent paralysis and , as well as the potential need for eventual revision of the prosthetic. Surgeon: Argentina Lazo [place] Strip Inspector: Andrew Mejia Anesthesia Type: General Operative Notes Findings: Severe left hip OA, adequate stability Closure Type: primary Specimen(s): none sent Prosthetic devices, grafts, tissues, transplants, or devices: Lazo and nephew R3 size 62,one 6.5 mm screw, 40 +4 lateralized liner, size 40+ 4 Oxinium head, size 14 high offset Synergy Estimated Blood Loss (mL): 250 Blood products transfused: none Procedure in detail: The patient was seen in the pre-operative area, where the patient identified the left hip as the operative site and this was marked with my initials. The patient received pre-operative antibiotics and was taken to the operating room and placed on the operative table in the right lateral decubitus position after satisfactory anesthesia. A horse race timer out was performed. The left leg was prepared from the ankle to the iliac crest with ChloroPrep in the usual fashion and draped through sterile drapes. PA was used during the procedure was essential for intraoperative retraction and safe implantation of the components. The hip was approached through an approximately 20 cm incision centered over the greater trochanter and curving gently posteriorly as it went proximally. This was carried sharply to the fascia shawn, which was divided and retracted with a s elf retaining retractor. The trochanteric bursa was excised with care being taken to avoid the sciatic nerve, which was identified and protected throughout the case. The short external rotators were incised and the capsulomuscular flap was raised and tagged for later repair. The hip was dislocated, and a femoral neck osteotomy performed approximately 15 mm above the lesser trochanter. Retractors were placed around the femur. The canal was opened with a box cutting osteotome, followed by a T handled reamer and a lateralizing reamer. The chili pepper broach was then used, followed by sequential broaching until there was good stability of the broach in the femur. Retractors were placed to expose the acetabulum. The labrum and central soft tissues were removed. Reaming was performed initially going up in 2 mm increments, then 1 mm increments until good bite was obtained with an odd sized reamer. The cup 1 mm larger than the last reamer was then inserted using the appropriate anteversion guides. It was further stabilized with a single screw. A trial neutral liner was placed. The broach was placed in the canal. A trial head and neck were then placed and the hip relocated and checked for leg length and stability. An intraoperative film confirmed the component position and no evidence of fracture. The leg appeared to be a little bit short and with decreased offset. It was felt that we should probably increase the offset our leg lengths. I did a trial with a +4 and I also tried a +4 liner. There was better stability with a +4 liner and a +4 femoral head. He came to full extension in his leg lengths appeared equal. The patient was stable in the position of sleep, of squatting, and could be put through a range of motion with 45 degrees internal rotation without dislocation. At 90 degrees flexion, internal rotation to 70 ? was possible before dislocation. This was felt to be satisfactory and the appropriate components were opened, and the trials were removed. The acetabular liner was impacted into position. The final stem was then impacted into the prepared femoral canal. A brief Betadine soak was performed while trialing with head options. The hip was meticulously irrigated with normal saline. Finally the femoral head was impacted onto the stem. The acetabulum was cleared of all material and the hip relocated one final time. The capsulomuscular flap was then repaired to the greater trochanter though an awl hole using the tag sutures. The short external rotators were repaired with a nonabsorbable suture. A deep drain was placed and brought out anteriorly. The fascia shawn was closed with Vicryl. The subcutaneous layer was closed with barbed sutures and SteriStrips. A lolis dressing was applied and the patient was taken to recovery having tolerated the procedure well. Complications: none Post-operative Condition: stable Disposition: Acute Care Plan for aftercare: The patient will be maintained on a standard total hip replacement protocol with weight bearing as tolerated and posterior hip precautions. The patient will receive Aspirin and sequential compression devices for DVT prophylaxis. The patient will be discharged home when safe for the home environment.
[2023-09-29] MEDS: CEFAZOLIN VIAL 3 GM in SODIUM CHLORIDE 0.9% 100 ML IV (09:16)
[2023-09-29] MEDS: TRANEXAMIC ACID 1,000 MG VIAL 2000 MG INJ ×2 (09:20→11:15)
--- NOTE | 2023-09-29 09:44 | SUR.OPER ---
Lateral on padded OR bed. Gel axillary roll. Arms secured on padded armboard with pillow supporting top arm. Padded hip positioner braces x4 - anterior and posterior chest and pelvis. Additional gel pad used anterior pelvis. Gel pad under bottom leg from knee to foot and secured with tape over sheet. CONFIRMED BY DR. MORENO
[2023-09-29] MEDS: BUPIVACAINE 0.5% W/ EPI (PF) 30 ML VIAL INJ (09:57)
[2023-09-29] MEDS: BUPIVACAINE LIPOSOME 266 MG/20 ML VIAL INJ (11:20)
[2023-09-29] MEDS: ACETAMINOPHEN 325 MG TABLET 650 MG PO ×2 (13:03→19:44)
[2023-09-29] MEDS: LACTATED RINGERS 1,000 ML 100 ML IV (13:04)
[2023-09-29] MEDS: OXYCODONE IR 5 MG TABLET PO ×5 (13:04→22:45)
--- NOTE | 2023-09-29 14:17 | PC.NURSE ---
Pt arrived from PACU at 1215, A&Ox4 but drowsy, VSS on RA. C/o 7/10 pain to L hip and buttock. Dressing to L hip c/d/i. Lung sounds CTA, bowel sounds hypoactive, CMS intact. Pt and family at bedside oriented to room and call light. Bed in low position, call light within reach, SCDs on, bed alarm activated.
--- NOTE | 2023-09-29 15:00 | PT.IIE ---
Current Diagnoses Unilateral primary osteoarthritis, left hip (09/29/23) Surgery Performed Operation Date: 09/29/23 08:45 Actual Procedures p LEFT Total Hip Arthroplasty(Left) - Argentina Lazo MD Medical History (Last Updated 09/24/23 @ 10:09 by Modesta Millan RN) Allergic dermatitis Arthritis BPH (benign prostatic hyperplasia) Left hip pain Morbid obesity due to excess calories Psoriatic arthritis SVT (supraventricular tachycardia) Physical Therapy Inpatient Evaluation/Re-Eval M1 PT/OT-IP Prior Functional Status Start: 09/29/23 17:20 Freq: NEEDED Status: Active Protocol: Document 09/29/23 15:00 AB (Rec: 09/29/23 17:51 AB [id number]) Medical Review Prior Functional Status Medical History Reviewed Yes Communication able to make needs known; with slight confusion Mobility and Gait pt stated that he was independent with all mobilities and ambulation without AD Social History Household Members spouse,children Living Arrangements House Number of Floors (Floors) One Floor Number of Stairs To Enter/Railing? 2 platform steps to enter the house Home Environment High Toilet Home Equipment Four Wheel Walker,Hand Held Shower,Sock Aid,Grab Bars Near Toilet Additional Social History Comment pt stated that he also has his son to assist him at home if needed pt has a recliner that he can sleep on M2 PT-IP Current Condition Start: 09/29/23 17:20 Freq: NEEDED Status: Active Protocol: Document 09/29/23 15:00 AB (Rec: 09/29/23 17:51 AB [id number]) Physical Therapy Current Condition Current Condition Evaluation Date 09/29/23 Treatment Diagnosis s/p L JOVAN posterior; difficulty in walking Onset Date 09/29/23 M3 PT-IP Subjective Start: 09/29/23 17:20 Freq: NEEDED Status: Active Protocol: Document 09/29/23 15:00 AB (Rec: 09/29/23 17:51 AB [id number]) Subjective Physical Therapy Visit Type Type Initial Evaluation Visit Start Time 15:00 Visit Stop Time 16:35 Number of OVERLOCK SEWING MACHINE 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 Visits 0 Physical Therapy Visit Comments Patient Comments agreeable to do PT Therapy Pain Assessment Pain When Pain Assessed At Rest Pain Present Pain Present Pain Reported Location Left Hip Intensity 7 Scale Used increases with movement Pain Management Techniques Distraction,Modification of Treatment,Re-positioning, Timing of Activity with Medications M4 PT-IP Mobility and Gait Start: 09/29/23 17:20 Freq: NEEDED Status: Active Protocol: Document 09/29/23 15:00 AB (Rec: 09/29/23 17:51 AB [id number]) PT-Bed Mobility Assessment Supine to Sit Supine to Sit Maximum Assistance,Head of Bed Elevated,Bedrails PT-Transfer Assessment Sit to and From Stand Sit to and from Stand Minimal Assistance,Moderate Assistance,Maximum Assistance, 1 Person Assistance,Use of Upper Extremities Equipment Transfer Assistive Device Gait Belt,Front Wheeled Walker Orthotic/Prosthetic Devices or Brace: No Transfers Transfer Destination Bed Transfer Technique ambulated Transfer Ability Level of Assist Minimal Assistance,Moderate Assistance,1 Person Assistance ,Use of Upper Extremities Comments Mobility Comments pt supine in bed and agreeable to do PT. obtained PLOF and home set up from pt. post-op folder provided and reviewed contents to pt. pt educated regarding L hip posterior precautions. pt requires cues to recall. BP: 111/74. pt completed supine to sit x 2 attempts to be able to sit up max A and max cues. HOB elevated to assist and pt used bed rails as well. pt stated that he has a recliner at home that he can sleep on at this time. pt completed sit to stand max A and max cues. pt required max cues for precautions. LLE tends to internally rotate. cued to correct. pt somewhat resistant to instructions and stated that he has had hip pain for awhile and that is just how his body is moving. educated pt on safety and precautions. pt understood but continues to require max cues. pt ambulated in room ~ 12 ft to othe side of the bed using fWW mod A and max cues. pt refused to sit on the chair and just sat on EOB. pt educated on sit<>stand again with emphasis on techniques and precautions. pt completed sit to stand from EOB mod A and cues and ambulated in room using FWW min to mod A and cues. pt sat back on EOB. BP : 124/74 . pt needing max cues with all tasks and has difficulty following directions and can be resistive. pt wanting to go home regarding of what PT 's concerns are. spouse arrived and caregiver training conducted. educated spouse on how to use safety belt and how to assist pt. spouse was able to put safety belt on pt. educated pt and spouse on stair climbing. spouse assisted pt with sit to stand and ambulated pt to the platform step. pt completed up /down step using FWW mod A and max cues. PT needed to cue pt for technique. pt is impulsive. ask pt to do up/ down step again but refused and then c/o feeling dizzy. pt ambulated back to his room using FWW min to mod A and sat on EOB. after ~ 2 seconds of sitting on EOB, stated that he is feeling better. informed pt and spouse regarding PT's concerns for pt regarding mobility and safety . pt and spouse understood but pt wants to go home tonight. spouse stated that she will be able to manage assisting pt at home. spouse stated that he will get or even buy a FWW for pt to use tonight. informed nurse. Gait Assessment Gait Gait Assistance Required: Minimum Assistance,Moderate Assistance,1 Person Assist Distance (Feet) 20 Able to Maintain Weight Bearing Status Yes During Gait Assistive Devices Assistive Device Gait Belt,Front Wheeled Walker Orthotic/Prosthetic Devices or Brace: No Gait Deviations General Gait Pattern Antalgic,Decreased Stride Length,Decreased Feet Clearance Factors Limiting Gait Function Factors Limiting Gait Function Decreased Activity Tolerance, Decreased Strength,Difficulty Following Directions,Limited Range of Motion,Pain,Poor Balance,Poor Safety Awareness Stair Climbing Assessment Evaluation Level of Assist On Stairs Moderate Assistance Devices Stair Climbing Assistive Devices Front Wheel Walker Technique/Endurance Stair Climbing Direction Ascend and Descend Stair Climbing Technique Step to Step Number of Steps Climbed 1 Query Text: Stair Climbing Set # Repetitions (reps) 1 PT-Balance Assessment Sitting Balance and Reactions Static Sitting Balance Ability Good Dynamic Sitting Balance Ability Fair Standing Balance and Reactions Static Standing Balance Ability Fair Dynamic Standing Balance Ability Fair Device Used FWW M5 PT-IP Objective Assessments Start: 09/29/23 17:20 Freq: NEEDED Status: Active Protocol: Document 09/29/23 15:00 AB (Rec: 09/29/23 17:51 AB [id number]) Orientation Orientation/Cognition Level of Alertness Alert Orientation Name,Place,Situation Language Function Ability No Deficits Noted Safety Awareness Decreased Safety Awareness Memory Description Short Term Impaired Gross Range of Motion Lower Extremity ROM Assessment Within Functional Limits Strength Lower Extremity Strength Assessment Left Impaired Hip 3-/5 Knee 3+/5 Muscle Tone Muscle Tone WNL Yes M6 PT-IP Treatment Start: 09/29/23 17:20 Freq: NEEDED Status: Active Protocol: Document 09/29/23 15:00 AB (Rec: 09/29/23 17:51 AB [id number]) Physical Therapy Treatment Education Education Provided Precautions,Weight Bearing Status,Post-Op Packet,Safety M7 PT-IP Assessment and Plan Start: 09/29/23 17:20 Freq: NEEDED Status: Active Protocol: Document 09/29/23 15:00 AB (Rec: 09/29/23 17:51 AB [id number]) PT Summary Assessment and Plan Potential Rehabilitation Potential Fair Status of Condition at Evaluation Evolving Summary Impairments Pain,ROM,Strength,Balance, Coordination,Sensation,Tone, Cognition,Bed Mobility, Transfers,Gait,Activity Tolerance Assessment Summary pt is a 58 y/o M s/p L JOVAN posterior approach POD 0. pt has L hip posterior precautions and is WBAT on LLE . pt requiring max A for bed mobility, min to max for transfers using fWW, min to mod A for ambulation using FWW and mod A for up/down step using FWW. pt requires max cues with all tasks for techniques and precautions/ safety and pt can be impulsive and has difficulty following instructions. caregiver training conducted but further training is needed but pt stated that he is going home regardless and despite of safety concerns . spouse stated that she is comfortable assisting pt at home. pt continue to assess. Goals Bed Mobility Goal Standby Assistance Transfer Goal Standby Assistance,Front Wheeled Walker Gait Goal Standby Assistance,Front Wheel Walker Gait Distance 150 Other Goals improve bed mobility, transfers and ambulation using FWW 250 ft mod I up/down 2 platform steps using FWW SBA Days to Meet Goals 5 Frequency of Treatment Frequency Of Treatment Twice a Day Treatment Plan Physical Therapy Treatment Plan Bed Mobility Training,Transfer Training,Gait Training, Therapeutic Exercise,Balance Retraining,Post Op Education, Discharge Planning,Hot or Cold Pack,Neuromuscular Re-ed, Coordination Retraining,Manual Therapy Precautions Posterior Hip Precautions No Hip Flexion > 90 degrees,No Hip Internal Rotation,No Hip Adduction Weight Bearing Status Weight Bearing Status Weight Bear as Tolerated Allowed Weight Bearing Amount (enter % LLE WBAT or #) (%) Recommendations To Nursing Amount of Assist Needed 1 Person Assist Discharge Recommendations PT Discharge Recommendations Home with 19/10 Assist Available,Home Health Equipment Needed for Home Before FWW Discharge Transportation Needs at Discharge Private Vehicle,Wheelchair/ Cabulance
[2023-09-29] MEDS: CEFAZOLIN 2 GM/100 ML PREMIX 100 ML IV (19:03)
[2023-09-29] MEDS: IBUPROFEN 400 MG TABLET PO (19:44)
[2023-09-29] MEDS: ASPIRIN EC 81 MG TABLET PO (22:22)
[2023-09-29] MEDS: DOCUSATE 100 MG CAPSULE PO (22:22)
[2023-09-30] MEDS: CEFAZOLIN 2 GM/100 ML PREMIX 100 ML IV (00:50)
[2023-09-30] MEDS: LACTATED RINGERS 1,000 ML 100 ML IV (00:55)
[2023-09-30] MEDS: ACETAMINOPHEN 325 MG TABLET 650 MG PO (01:25)
[2023-09-30] MEDS: OXYCODONE IR 10 MG TABLET PO ×3 (01:25→06:41)
[2023-09-30 06:04] LABS: Hematocrit 29.5 % (41-53); Hemoglobin 9.9 g/dL (13.5-17.5)
[2023-09-30] MEDS: PANTOPRAZOLE DR 20 MG TABLET PO (06:41)
--- NOTE | 2023-09-30 08:30 | PT.IPTN ---
Current Diagnoses Unilateral primary osteoarthritis, left hip (09/29/23) Surgery Performed Operation Date: 09/29/23 08:45 Actual Procedures p LEFT Total Hip Arthroplasty(Left) - Argentina Lazo MD Physical Therapy Treatment Note M2 PT-IP Current Condition Start: 09/29/23 17:20 Freq: NEEDED Status: Active Protocol: Document 09/29/23 15:00 AB (Rec: 09/29/23 17:51 AB [id number]) Physical Therapy Current Condition Current Condition Evaluation Date 09/29/23 Treatment Diagnosis s/p L JOVAN posterior; difficulty in walking Onset Date 09/29/23 M3 PT-IP Subjective Start: 09/29/23 17:20 Freq: NEEDED Status: Active Protocol: Document 09/30/23 08:50 TS (Rec: 09/30/23 09:01 TS [id number]) Subjective Physical Therapy Visit Type Type Treatment Note Visit Start Time 08:30 Visit Stop Time 08:49 Number of COLLEGE COACH Visits 1 Physical Therapy Visit Comments Patient Comments Pt found resting sitting EOB, is agreeable to PT. Therapy Pain Assessment Pain When Pain Assessed During Mobility Pain Present Pain Present Pain Reported M4 PT-IP Mobility and Gait Start: 09/29/23 17:20 Freq: NEEDED Status: Active Protocol: Document 09/30/23 08:50 TS (Rec: 09/30/23 09:01 TS [id number]) PT-Bed Mobility Assessment Scooting Scooting to Edge of Bed Standby Assistance PT-Transfer Assessment Sit to and From Stand Sit to and from Stand Standby Assistance,Use of Upper Extremities Equipment Transfer Assistive Device Gait Belt,Front Wheeled Walker Orthotic/Prosthetic Devices or Brace: No Comments Mobility Comments Pt recalled 1/3 hip precautions( no internal rotation). STS from bed SBA with FWW, pt demonstrates good carryover of technique. He ambulated ~80'SBA with slow step to gait, LLE inverts with gait, required cues for heel to toe contact. He performed steps x3 with FWW on platform step, required cues for sequencing. Gait Assessment Gait Gait Assistance Required: Standby Assistance Distance (Feet) 80 Able to Maintain Weight Bearing Status Yes During Gait Assistive Devices Assistive Device Gait Belt,Front Wheeled Walker Orthotic/Prosthetic Devices or Brace: No Gait Deviations General Gait Pattern Antalgic,Decreased Stride Length,Decreased Feet Clearance Factors Limiting Gait Function Factors Limiting Gait Function Decreased Activity Tolerance, Decreased Strength,Difficulty Following Directions,Limited Range of Motion,Pain,Poor Balance,Poor Safety Awareness Stair Climbing Assessment Evaluation Level of Assist On Stairs Contact Guard Assistance Devices Stair Climbing Assistive Devices Front Wheel Walker Technique/Endurance Stair Climbing Direction Ascend and Descend Stair Climbing Technique Step to Step Number of Steps Climbed 3 PT-Balance Assessment Sitting Balance and Reactions Static Sitting Balance Ability Good Dynamic Sitting Balance Ability Fair Standing Balance and Reactions Static Standing Balance Ability Fair Dynamic Standing Balance Ability Fair Device Used FWW M5 PT-IP Objective Assessments Start: 09/29/23 17:20 Freq: NEEDED Status: Active Protocol: Document 09/29/23 15:00 AB (Rec: 09/29/23 17:51 AB [id number]) Orientation Orientation/Cognition Level of Alertness Alert Orientation Name,Place,Situation Language Function Ability No Deficits Noted Safety Awareness Decreased Safety Awareness Memory Description Short Term Impaired Gross Range of Motion Lower Extremity ROM Assessment Within Functional Limits Strength Lower Extremity Strength Assessment Left Impaired Hip 3-/5 Knee 3+/5 Muscle Tone Muscle Tone WNL Yes M6 PT-IP Treatment Start: 09/29/23 17:20 Freq: NEEDED Status: Active Protocol: Document 09/30/23 08:50 TS (Rec: 09/30/23 09:01 TS [id number]) Physical Therapy Treatment Education Education Provided Precautions,Weight Bearing Status,Post-Op Packet,Safety M7 PT-IP Assessment and Plan Start: 09/29/23 17:20 Freq: NEEDED Status: Active Protocol: Document 09/30/23 08:50 TS (Rec: 09/30/23 09:01 TS [id number]) PT Summary Assessment and Plan Potential Rehabilitation Potential Fair Summary Impairments Pain,ROM,Strength,Balance, Coordination,Sensation,Tone, Cognition,Bed Mobility, Transfers,Gait,Activity Tolerance Assessment Summary Justo is progressing well with his mobility. He performed STS x2 SBA with FWW. He progressed his gait to ~80'SBA with slow step to gait. He performed stairs x3 with CGA and use of FWW. He requires cues for step sequencing, took two attempts for pt to get sequencing correct. He recalled 1/3 hip precautions but does follow precautions correctly with mobility. PT is recommending Home with 19/10 assist. Goals Bed Mobility Goal Standby Assistance Transfer Goal Standby Assistance,Front Wheeled Walker Gait Goal Standby Assistance,Front Wheel Walker Gait Distance 150 Other Goals improve bed mobility, transfers and ambulation using FWW 250 ft mod I up/down 2 platform steps using FWW SBA Days to Meet Goals 5 Frequency of Treatment Frequency Of Treatment Twice a Day Treatment Plan Physical Therapy Treatment Plan Bed Mobility Training,Transfer Training,Gait Training, Therapeutic Exercise,Balance Retraining,Post Op Education, Discharge Planning,Hot or Cold Pack,Neuromuscular Re-ed, Coordination Retraining,Manual Therapy Precautions Posterior Hip Precautions No Hip Flexion > 90 degrees,No Hip Internal Rotation,No Hip Adduction Weight Bearing Status Weight Bearing Status Weight Bear as Tolerated Allowed Weight Bearing Amount (enter % LLE WBAT or #) (%) Recommendations To Nursing Amount of Assist Needed 1 Person Assist Discharge Recommendations PT Discharge Recommendations Home with 19/10 Assist Available,Outpatient PT Equipment Needed for Home Before FWW Discharge Transportation Needs at Discharge Private Vehicle
[2023-09-30] MEDS: DOCUSATE 100 MG CAPSULE PO (09:09)
[2023-09-30] MEDS: ASPIRIN EC 81 MG TABLET PO (09:09)
[2023-09-30] MEDS: lisinopriL 5 MG TABLET PO (09:09)
[2023-09-30] MEDS: SERTRALINE 50 MG TABLET 150 MG PO (09:09)
[2023-09-30] MEDS: FOLIC ACID 1 MG TABLET PO (09:09)
--- NOTE | 2023-09-30 09:21 | OT.IP.EVAL ---
Current Diagnoses Unilateral primary osteoarthritis, left hip (09/29/23) Surgery Performed Operation Date: 09/29/23 08:45 Actual Procedures p LEFT Total Hip Arthroplasty(Left) - Argentina Lazo MD Past Medical History (Last Updated 09/24/23 @ 10:09 by Modesta Millan RN) Allergic dermatitis Arthritis BPH (benign prostatic hyperplasia) Left hip pain Morbid obesity due to excess calories Psoriatic arthritis SVT (supraventricular tachycardia) Occupational Therapy Inpatient Evaluation/Re-Eval M1 PT/OT-IP Prior Functional Status Start: 09/29/23 17:20 Freq: NEEDED Status: Active Protocol: Document 09/30/23 09:23 [facility] (Rec: 09/30/23 09:32 [facility] [id number]) Medical Review Prior Functional Status Medical History Reviewed Yes Communication able to make needs known; with slight confusion Mobility and Gait pt stated that he was independent with all mobilities and ambulation without AD Activities of Daily Living and IADL's Had pain but able to do ADL's and at times needing assist for LB dressing needs. Social History Household Members spouse Living Arrangements House Number of Floors (Floors) One Floor Number of Stairs To Enter/Railing? 2 platform steps to enter the house Home Environment High Toilet Home Equipment Four Wheel Walker,Hand Held Shower,Sock Aid,Grab Bars Near Toilet Additional Social History Comment pt stated that he also has his son to assist him at home if needed pt has a recliner that he can sleep on M2 OT-IP Current Condition Start: 09/30/23 09:22 Freq: Status: Active Protocol: Document 09/30/23 09:23 [facility] (Rec: 09/30/23 09:32 [facility] [id number]) Occupational Therapy Current Condition Current Condition Evaluation Date 09/30/23 Treatment Diagnosis S/P L JOVAN posterior approach Diagnosis Onset Date 09/29/23 Post Operative Precautions Posterior Hip Precautions No Hip Flexion > 90 degrees,No Hip Internal Rotation,No Hip Adduction M3 OT- IP Subjective and Pain Start: 09/30/23 09:22 Freq: Status: Active Protocol: Document 09/30/23 09:23 [facility] (Rec: 09/30/23 09:32 [facility] [id number]) OT- Subjective Occupational Therapy Visit Type Type Initial Evaluation Visit Start Time 08:30 Visit Stop Time 09:21 Occupational Therapy Visit Comments Patient Comments Pt agreed to do OT eval. Patient/Caregiver Goals TO go home. OT Pain Assessment Pain When Pain Assessed During Mobility Pain Present Pain Present Pain Reported M4 OT- IP ADL's Start: 09/30/23 09:22 Freq: Status: Active Protocol: Document 09/30/23 09:23 [facility] (Rec: 09/30/23 09:32 [facility] [id number]) OT [id number] General Evaluation Self-Feeding Ability Independent OT ADL-Grooming Comments OT Grooming Comments Not performed. OT ADL-Oral Care Comments Oral Care Comments Not performed. OT ADL-Dressing General Eval Lower Body Dressing Ability Maximum Assistance Comments OT Dressing Comments Pt's having to assist with LB dressing needs. Pt states has a sock aid at home and will also benefit from use of a colon therapist. Educated to dress the LLE first and take out last. OT ADL-Toileting Comments OT Toileting Comments Spoke of use of urinal, use of pads- as pt says leaks at times and also per to look into seeing a urologist soon. OT ADL-Bathing Comments OT Bathing Comments Pt will benefit from sponging off initially and getting a tub bench. M5 OT- IP IADL's Start: 09/30/23 09:22 Freq: Status: Active Protocol: Document 09/30/23 09:23 [facility] (Rec: 09/30/23 09:32 [facility] [id number]) OT-Instrumental Activities of Daily Living Home Safety Awareness Awareness of Need for Assistance at Home Good Awareness Ability to Problem Solve Emergency Able to Problem Solve Situations Home Safety Comments Pt is a bit impulsive and needing cues to slow down and follow his hip precautions. Meal Preparation Meal Preparation Caregiver Provides Assist Speeder Tender Speeder Tender Caregiver Provides Assist M6 OT- IP Functional Cognition Start: 09/30/23 09:22 Freq: Status: Active Protocol: Document 09/30/23 09:23 [facility] (Rec: 09/30/23 09:32 [facility] [id number]) Cognitive Factors Limiting Selfcare Function Cognitive Ability Level of Alertness Alert Patient Orientation Name,Age,Birthday,Month,Date, Year,Day of Week,Place, Situation Attention Span Ability Capable of Focused Attention, Capable of Sustained Attention Ability to Follow Commands Able to Follow One Step Commands Safety Awareness Underestimates Need for Assistance Cognitive Comments Cognitive Assessment Comments Pt needing reminders to follow his hip precautions especially during mobility needs. M7 OT- IP Mobility and Balance Start: 09/30/23 09:22 Freq: Status: Active Protocol: Document 09/30/23 09:23 [facility] (Rec: 09/30/23 09:32 [facility] [id number]) OT-Transfer Assessment Sit to and From Stand Sit to and from Stand Standby Assistance Transfers Transfer Ability Standby Assistance Technique Transfer Destination Bed Comments Mobility Comments Close SBA with FWW. ABle to issue a FWW to the pt. OT- Balance Assessment Sitting Balance and Reactions Static Sitting Balance Ability Good Dynamic Sitting Balance Ability Good Standing Balance and Reactions Static Standing Balance Ability Good Dynamic Standing Balance Ability Fair M8 OT- IP Objective Assessments Start: 09/30/23 09:22 Freq: Status: Active Protocol: Document 09/30/23 09:23 [facility] (Rec: 09/30/23 09:32 [facility] [id number]) OT Strength Upper Extremity Strength Assessment Within Functional Limits M9 OT- IP Assessment and Plan Start: 09/30/23 09:22 Freq: Status: Active Protocol: Document 09/30/23 09:23 [facility] (Rec: 09/30/23 09:32 [facility] [id number]) OT Summary Assessment and Plan Potential Rehabilitation Potential Good Analytic Complexity at Evaluation Low Summary OT Impairments Pain,Balance,Functional Mobility,Dressing,Toileting, Bathing Progress Towards Goals Progressing Toward Goals Assessment Summary Pt low complexity and main barriers are steps, needing reminders for hip precautions and assist for ADL needs. Educated pt and family regarding ADL needs and technique for car transfer and mobility needs. Pt to go home with 24/7 assist and outpt PT. Goals Toileting Goal Independent Bathing Goal Standby Assistance Toilet Transfer Goal Independent Shower Transfer Goal Contact Guard Assistance Days to Meet Goals 5 Frequency of Treatment Frequency Of Treatment Once a Day Treatment Plan OT Treatment Plan ADL Training,Patient/Family Education,Discharge Planning Discharge Recommendations OT Discharge Recommendations Home with 24/7 Assist Available,Outpatient PT Home Equipment Needs Tub bench Transportation Needs at Discharge Private Vehicle
--- NOTE | 2023-09-30 09:22 | P.DS_ITS ---
History of Present Illness History of Present Illness Date Patient Seen: 09/30/23 Time Patient Seen: 09:22 Chief complaint: Left posterior JOVAN *OPB* Narrative: Operative Date/Time/Diagnoses Date of procedure: 09/29/23 Time of procedure: 08:55 Pre-op diagnosis: left hip OA/ AVN severe Post-op diagnosis: same Procedure & Clinicians Procedure: Left total hip posterior approach Same procedure as scheduled: Yes Indications: The patient has had progressively worsening left hip pain with radiographic changes consistent with arthritis. Non-operative management has failed and the patient has requested total hip replacement. The risks, benefits and alternatives to surgery were discussed with the patient prior to proceeding. Risks discussed included, but were not limited to, failure to relieve pain, leg length discrepancy, dislocation, stiffness, infection, nerve damage, deep venous thrombosis, pulmonary embolism, stroke, coma, heart attack, permanent paralysis and , as well as the potential need for eventual revision of the prosthetic. Surgeon: Argentina Lazo Allergist/Immunologist: Andrew Mejia Anesthesia Type: General Operative Notes Findings: Severe left hip OA, adequate stability Closure Type: primary Specimen(s): none sent Prosthetic devices, grafts, tissues, transplants, or devices: Lazo and nephew R3 size 62,one 6.5 mm screw, 40 +4 lateralized liner, size 40+ 4 Oxinium head, size 14 high offset Synergy Estimated Blood Loss (mL): 250 Blood products transfused: none Discharge Providers Provider Discharge Date: 09/30/23 Primary care physician: Jailene Addison MD Consults: 09/29/23 07:29 Consult to Anesthesiology Routine Comment: Consulting Provider: Anesthesiologist Reason for consultation: Regional block for post operative pain control 09/29/23 12:30 Consult to Discharge Planning Routine Comment: Consult to Occupational Therapy Evaluate & Treat Comment: Physician Instructions: Evaluate and treat Consult to Physical Therapy Evaluate & Treat Comment: Physician Instructions: post op JOVAN protocol 09/30/23 09:05 Consult to Home Health Routine Comment: Left total hip arthroplasty Reason For Exam: Set up FWW for home use for discharge. Discharge provider: Emili Romero PA-C Summary Hospital Course Discharge Diagnosis: Left hip osteoarthritis and AVN; s/p left total hip arthroplasty Hospital Course: [facility] course was unremarkable. On the morning of POD# 1, he was feeling well and wanted to go home. He was eating and voiding without difficulty and his pain was well-controlled with oral medication. He was evaluated by PT and they felt he was safe for discharge with family. Exam Vital Signs (past 8 hours): Oxygen Delivery Method Room Air Oxygen Flow Rate 0 Narrative Exam Narrative: 5/5 strength in hip flexors, quadriceps, hamstrings, DF, PF, EHL on left. Sensation to light touch intact throughout LLE. Calf soft and compressible. KIMBERLY functioning, CDI. Objective Labs 09/30/23 05:30 Labs: Laboratory Results - last 24 hr 09/30/23 05:30 Hgb 9.9 L Hct 29.5 L PFSH Medical History (Updated 09/24/23 @ 10:09 by Modesta Millan RN) SVT (supraventricular tachycardia) Arthritis Left hip pain BPH (benign prostatic hyperplasia) Allergic dermatitis Morbid obesity due to excess calories Psoriatic arthritis Social History household members: spouse Smoking Status: Former smoker alcohol intake: former Discharge Assessment & Plan Assessment and Plan Assessment: Left hip osteoarthritis and AVN; s/p left total hip arthroplasty Plan of Treatment: Discharge home, ASA 81 mg BID x 6 weeks for VTE prophylaxis, outpt PT, f/u in office in 2 weeks as scheduled. Discharge Plan Discharge Plan Patient Disposition: Home Provider Discharge Comment: Postop medications sent from office. Discharge orders & Medications Discharge Orders: Discharge (Order); Ordered 09/30/23 Ordered By: Emili Romero Prescriptions: Continued promethazine 25 mg tablet 25 mg PO Q6H PRN (Reason: nausea and vomiting) Qty: 30 0RF sertraline 100 mg tablet 150 mg PO DAILY Qty: 120 1RF folic acid 1 mg tablet 1 mg PO DAILY omeprazole 20 mg capsule,delayed release(DR/EC) 20 mg PO DAILY Qty: 30 2RF lisinopril-hydrochlorothiazide 10-12.5 mg tablet 0.5 tab PO DAILY Qty: 90 1RF Follow up/Referrals: Jailene Addison MD [Primary Care Provider] - Argentina Lazo MD [Physician] - 10/13/23 11:10 am (Follow up w/ LORA Perrin, at [facility] office.) Diet/Activity/Treatments Diet: Diet as Tolerated Activity: Weightbearing as tolerated, posterior hip precautions. Cold/Heat Therapy: Ice to hip as needed for pain. Skin/Wound/Dressing Care Report to your healthcare provider any signs of infection, such as:: chills, fever, night sweats, unusual drainage and unusual redness Dressing: May shower. Leave dressing in place until follow up in office. In 5- 7 days, batteries will , at which point you can cut off the battery pack and dispose of it, but leave the dressing on. No bathing or otherwise soaking incision. Call the office if the dressing becomes saturated inside. Visit Report/Discharge Packet Instructions: DI for Hip Replacement, DI for Prescription Opioid Use Stand Alone Forms: Patient Portal/API, Surgery Discharge Discharge Data Primary Care Provider: Jailene Addison Attending Provider: Argentina Lazo
--- NOTE | 2023-09-30 09:53 | PC.NURSE ---
Pt denies any discomfort, Wanting to discharge RAVI PA her for D/C orders. Home instructions given w/understanding Pt escorted by staff via W/C in stable post op status.
--- NOTE | 2023-09-30 15:41 | CM.DANOTE ---
Patient is a 58 yo male who was admitted [facility] on 09/29/23 for LTHA. Pt has [employer] for insurance and his PCP is Jailene Addison. EMR was reviewed. Per Ortho, pt tolerated surgery well and due to his larger frame and living on the [facility] he remained overnight and medically stable to discharge home today. Per PT/OT, CG training completed with spouse and stairs managed well and recommending home with assist and FWW and outpt PT. PT requested FWW order as the one spouse brought too small. SW met bedside briefly with pt and spouse as they were getting ready to discharge home and catch a ferry back to [facility] and they confirm they live on [address] and adult son lives with them and can assist as well. Pt is typically independent with ADLs and has not been using DME for ambulation but now have walker dispensed that they will use at home. Pt works and has time off for recovery and spouse and son can assist as needed. Pt preference is home today with family and does not anticipate any further needs. PT set up on the [place] after discharge. Plan: Patient to discharge home today via spouse POV back to [facility] this morning and outpt f/u with Ortho. No further SW needs at this time. CHANCE Zhong Discharge Planning/Care Management CM Discharge Assessment Start: 09/30/23 15:40 Freq: Status: Active Protocol: Document 09/30/23 15:40 [facility] (Rec: 09/30/23 15:41 [facility] [id number]) Discharge Planning Assessment Assigned Hay Chopper CHANCE No DPOA/Assigned Designee Name spouse Carisa Contact Information [phone] Advance Directives? No Advance Directives on File No History Provided By Patient,Family Member,Medical Record Has Patient been admitted in last 30 No days? Prior Living Arrangements House Household Members spouse Type of transporation used prior to Drives own vehicle admit Independent with ADL's Yes Is patient alert and oriented? Yes Caregiver for Another No Community Services used prior to Physical Therapy admission: DME Already Rented / Owned FWW / Walker Patient/Family Preference OP PT Therapy Barriers to Discharge No Discharge Plan Home Community Services Physical Therapy Transportation Arrangement Spouse bedside and plans to transport home today Referrals Initiated None needed Whiteboard Updated in Patient Room with Yes name and ext. # of Hay Chopper Review Status In Process Please Provide Date Initial DC 09/30/23 Assessment Was Performed Next Review Type Continued Stay Review Pre-Anesthesia Assessment Start: 09/24/23 08:50 Freq: Status: Complete Protocol: Document 09/24/23 08:50 [facility] (Rec: 09/24/23 10:15 [facility] [id number]) Pre-Anesthesia Assessment PAC Comment 4 messages left for pt to return call to schedule PAC call, with no return call, chart review only Patient Information Reviewed Via Chart Review Primary Care Provider Jailene Addison Comment pre-op 09/20/23 in system and in surgery folder Seen Specialist in Last 12 Months Yes Specialist Seen Orthopedist,Other Comment GI Primary Language British Die Repairer Stamping Required No Height 187.96 cm Weight 157.397 kg Body Mass Index (BMI) 44.5 Barriers to Learning Cognitive impairment Anesthesia Review Requested No Health Worker No Smoking Status Former smoker Substance Use Type marijuana Pain Present Pain Reported Musculoskeletal Symptoms Joint Pain Patient is completely paralyzed or No completely immobile Mental Status Oriented to own ability Is patient on oxygen? Pulse OX test 01/28/23 states pt qaulifies for 02-scanned, in folder Currently Taking a Beta Karen No Anti-Coagulant Therapy No Cardiac Testing Yes: ZIO patch 09/14/23 Hx Pacemaker/ICD No Pacemaker Rep Required? No Cardiac Clearance Received No Comment Cardiac record scanned and in surgery folder Urinary Catheter Present No Hx Urinary Self Catheterization No HgbA1C 4.5 Date 09/21/23 Received a COVID vaccine? Yes Marital Status Lives With spouse Patient Discharge Plan Description Return Home Advance Directives? No
--- NOTE | 2023-11-11 19:33 | PC.NURSE ---
LATE NOTE ....OXYCODONE 10MG GIVEN TO PT ON 09/30/23 AT 0930 MED DID NOT SCAN
== END 2023-09-30 09:40 | disposition home or self-care (01) ==
LOC: OR 07:01 → AC 07:04
PROVIDERS: PCP Family Medicine; Referring Provider Family Medicine; Visit Provider Orthopaedic Surgery
PROC: 0SRB0JZ Replacement of Left Hip Joint with Synthetic Substitute, Open Approach (ICD-10-PCS; CPT 27130; principal; 2023-09-29 08:45)
DX: M16.12 Unilateral primary osteoarthritis, left hip (principal); M87.052 Idiopathic aseptic necrosis of left femur; E66.01 Morbid (severe) obesity due to excess calories; Z68.41 Body mass index [BMI] 40.0-44.9, adult
CPT/HCPCS: 27130; 36415; 72170; 73502; 85014; 85018; 97162; 97165; 97530; 97535; C1776; C9290; J0330; J0690; J1100; J1170; J2250; J2405; J2704; J3010

== ENCOUNTER 2023-10-27 12:48 | Inpatient (IN) | payer OTHER, SELFPAY ==
[2023-09-29 17:11] VITALS: BMI 39.2
[2023-10-27 15:00] VITALS: BP 122/78; PULSE 94; RESP 16; TEMP 36.1; O2SAT 91
[2023-10-27 15:01] VITALS: BMI 38.7
[2023-10-27 15:10] VITALS: BMI 38.7
[2023-10-27 15:47] LABS: Add Manual Diff / Slide Review NO; Basophils Absolute Auto 0 /uL (0-100); Basophils Percent Auto 0.5 % (0-2); Eosinophils Absolute Auto 200 /uL (0-450); Hematocrit 25.6 % (41-53); Hemoglobin 8.6 g/dL (13.5-17.5); Lymphocytes Absolute Auto 1700 /uL (1100-4500); Lymphocytes Percent Auto 18.6 % (25-40); Mean Corpuscular HGB Conc 33.4 % (30-36); Mean Corpuscular Hemoglobin 30.4 PG (26-34); Mean Corpuscular Volume 90.9 fL (80-100); Monocytes Absolute Auto 700 /uL (0-900); Monocytes Percent Auto 7.6 % (3-14); Neutrophils Absolute Auto 6500 /uL (1500-7000); Neutrophils Percent Auto 71.3 % (50-75); Platelet Count 404 X10^3/uL (150-400); Red Blood Cell Count 2.82 X10^6/uL (4.5-5.9); Red Cell Distribution Width 13.6 % (11.6-14.8); White Blood Cell Count 9.1 X10^3/uL (4.5-11.0)
[2023-10-27 15:52] LABS: Alanine Aminotransferase 30 IU/L (<50); Albumin 3.7 g/dL (3.5-5.0); Albumin Globulin Ratio 1.1 (1.0-2.8); Alkaline Phosphatase 138 U/L (38-126); Aspartate Aminotransferase 56 IU/L (17-59); BUN Creatinine Ratio 14.8 (6-22); Bilirubin Total 0.4 mg/dL (0.2-1.3); Blood Urea Nitrogen 20 mg/dL (9-20); C-Reactive Protein Quant 8.5 mg/dL (<1.0); Calcium 8.6 mg/dL (8.4-10.2); Carbon Dioxide 25 mmol/L (22-32); Chloride 102 mmol/L (98-107); Estimated Glomerular Filt Rate > 60 mL/min (>60); Globulin 3.5 g/dL (1.7-4.1); Glucose 93 mg/dL (70-100); HEMOLYSIS < 15 (0-50); Potassium 4.4 mmol/L (3.4-5.1); Sodium 137 mmol/L (137-145); Total Protein 7.2 g/dL (6.3-8.2)
[2023-10-27] MEDS: OXYCODONE IR 10 MG TABLET PO ×3 (15:53→23:48)
--- NOTE | 2023-10-27 17:15 | PC.NURSE ---
Pt arrived at 1415 via walker. VSS on RA, c/o 710 pain to R hip. Rlof dressing to R hip with drainage to dressing. Lung sounds CTA, bowel sounds present, last BM this am, CMS+ bilaterally throughout. Pt and oriented to room and call light. Pt medicated per MAY. Call light within reach, bed in low position.
--- NOTE | 2023-10-27 17:59 | PC.NURSE ---
Pt arrived at 1415 via walker. VSS on RA, c/o 10 pain to L hip. Rolf dressing to L hip with drainage to dressing. Lung sounds CTA, bowel sounds present, last BM this am, CMS+ bilaterally throughout. Pt and oriented to room and call light. Pt medicated per MAR. Call light within reach, bed in low position.
[2023-10-27 18:00] VITALS: BP 122/78; PULSE 88; RESP 16; TEMP 36.6; O2SAT 91
[2023-10-27 18:03] LABS: Erythrocyte Sedimentation Rate > 140 MM/HR (0-15)
[2023-10-27 20:00] VITALS: BP 107/49; PULSE 78; RESP 18; TEMP 36.2; O2SAT 100
[2023-10-27] MEDS: ACETAMINOPHEN 325 MG TABLET 650 MG PO (20:22)
[2023-10-28] VITALS (29 sets, daily range): BP systolic 85–132; BP diastolic 40–80; PULSE 74–129; RESP 11–169; TEMP 36.1–36.8; O2SAT 94–100; BMI 38.7
[2023-10-28] MEDS: OXYCODONE IR 10 MG TABLET PO (10:20)
--- NOTE | 2023-10-28 13:09 | CM.DANOTE ---
DCP Assessment note Pt is a 58yo M here for post op infection. Had left hip surgery with Dr. Lazo 09/29/23, discharged home 09/30/23. Plan is for I&D today at 1430. PCP Jailene Soliman and self pay ENGRAVER LETTERING reviewed EMR. No current H&P or PN available to review. ENGRAVER LETTERING texted ortho PA to inform him of no reports available in chart. Per previous admission CM notes, Pt is a man from [facility]. Pt lives with spouse Carisa and adult son. Per RN report, pt mobilizing well in room. No obvious CM needs. ENGRAVER LETTERING met with pt and spouse in room. Confirm was mobilizing well at home for recovery prior to infection. Have a walker/all the equip they need at home. Report only potential need is for priority boarding pass. Will attempt to get res day of discharge and if none available, CM team will assist in arranging for one. P: I&D of wound today at 1430. CM team will follow close for post op antibiotics or wound care needs. Anticipate home with spouse Wednesday vs Wednesday. f/u for priority boarding pass need. CHANCE Stephenson Discharge Planning/Care Management CM Discharge Assessment Start: 10/28/23 13:07 Freq: Status: Active Protocol: Document 10/28/23 13:07 (Rec: 10/28/23 13:09 [id number]) Discharge Planning Assessment Assigned Circuit Board Inspector CHANCE Phelps DPOA/Assigned Designee Name deng Younger Contact Information [phone] Advance Directives? No Advance Directives on File No History Provided By Patient,Family Member,Medical Record Has Patient been admitted in last 30 Yes days? Comment left hip surgery 09/28, discharged home 09/29 Prior Living Arrangements House Household Members spouse Type of transporation used prior to Drives own vehicle admit Independent with ADL's Yes Is patient alert and oriented? Yes Caregiver for Another No DME Already Rented / Owned FWW / Walker Patient/Family Preference OP PT Therapy Discharge Plan Home Transportation Arrangement Spouse bedside and plans to transport home Referrals Initiated None needed Whiteboard Updated in Patient Room with Yes name and ext. # of Circuit Board Inspector Review Status In Process Please Provide Date Initial DC 10/28/23 Assessment Was Performed Next Review Type Continued Stay Review
--- NOTE | 2023-10-28 14:54 | PM.PREOP ---
Pre-operative Note Interval Note History & Physical reviewed/Exam performed by Physician: Yes Changes to H&P: No
--- NOTE | 2023-10-28 14:55 | PM.PREOP ---
Pre-operative Note Interval Note History & Physical reviewed/Exam performed by Physician: Yes Changes to H&P: No H&P completed within 30 days and has changed as indicated here:: He has continued drainage. He has been afebrile during his admission. Has a normal white count but an elevated sedimentation rate and C-reactive protein. Cultures are still pending. He has ongoing left hip pain. We discussed again that our operative plan is for irrigation and debridement. He clearly has a superficial hematoma. We do not have definitive bacteria but was suspicious of a periprosthetic joint infection I did discuss with him that he may require a 1 or 2 stage exchange arthroplasty and likely continued IV antibiotics. Serious nature of the procedure options risks
[2023-10-28] MEDS: LACTATED RINGERS 1,000 ML 42 ML IV ×4 (14:59→19:14)
[2023-10-28] MEDS: TRANEXAMIC ACID 1,000 MG in SODIUM CHLORIDE 0.9% 100 ML 200 MG IV ×2 (15:30→17:37)
--- NOTE | 2023-10-28 16:01 | SUR.OPER ---
Lateral on padded OR bed. Gel axillary roll. Arms secured on padded armboard with pillow supporting top arm. Padded hip positioner braces x4 - anterior and posterior chest and pelvis. Additional gel pad used anterior pelvis. Gel pad under bottom leg from knee to foot and secured with tape over pillow case. CONFIRMED BY DR. MORENO.
[2023-10-28] MEDS: CEFAZOLIN VIAL 3 GM in SODIUM CHLORIDE 0.9% 100 ML IV (16:17)
[2023-10-28] MEDS: VANCOMYCIN 1,000 MG/200 ML PIGGYBACK 200 MG IV (16:31)
[2023-10-28] MEDS: VANCOMYCIN 1,500 MG/300 ML PIGGYBACK 200 MG IV (16:31)
[2023-10-28] MEDS: BUPIVACAINE 0.25% (PF) 30 ML, EPINEPHrine 0.15 MG INJ (16:56)
[2023-10-28] MEDS: TOBRAMYCIN 1.2 GM VIAL INTRA-ARTI (17:08)
[2023-10-28] MEDS: VANCOMYCIN 1,000 MG VIAL 1000 MG TOP (17:10)
[2023-10-28] MEDS: BUPIVACAINE LIPOSOME 266 MG/20 ML VIAL INJ (17:12)
[2023-10-28 17:34] LABS: Add Manual Diff / Slide Review NO; Basophils Absolute Auto 100 /uL (0-100); Basophils Percent Auto 0.7 % (0-2); Eosinophils Absolute Auto 200 /uL (0-450); Eosinophils Percent Auto 1.4 % (2-4); Hematocrit 21.8 % (41-53); Hemoglobin 7.1 g/dL (13.5-17.5); Lymphocytes Absolute Auto 2100 /uL (1100-4500); Lymphocytes Percent Auto 14.5 % (25-40); Mean Corpuscular HGB Conc 32.8 % (30-36); Mean Corpuscular Hemoglobin 30.1 PG (26-34); Mean Corpuscular Volume 91.8 fL (80-100); Monocytes Absolute Auto 900 /uL (0-900); Monocytes Percent Auto 6.4 % (3-14); Neutrophils Absolute Auto 11200 /uL (1500-7000); Platelet Count 435 X10^3/uL (150-400); Red Blood Cell Count 2.37 X10^6/uL (4.5-5.9); Red Cell Distribution Width 13.3 % (11.6-14.8); White Blood Cell Count 14.6 X10^3/uL (4.5-11.0)
[2023-10-28 17:46] LABS: Alanine Aminotransferase 21 IU/L (<50); Albumin 2.8 g/dL (3.5-5.0); Albumin Globulin Ratio 0.8 (1.0-2.8); Alkaline Phosphatase 105 U/L (38-126); Aspartate Aminotransferase 33 IU/L (17-59); BUN Creatinine Ratio 15.7 (6-22); Bilirubin Total 0.4 mg/dL (0.2-1.3); Blood Urea Nitrogen 19 mg/dL (9-20); Calcium 8.1 mg/dL (8.4-10.2); Carbon Dioxide 26 mmol/L (22-32); Chloride 104 mmol/L (98-107); Estimated Glomerular Filt Rate > 60 mL/min (>60); Globulin 3.3 g/dL (1.7-4.1); Glucose 114 mg/dL (70-100); HEMOLYSIS 39 (0-50); Potassium 4.5 mmol/L (3.4-5.1); Sodium 134 mmol/L (137-145); Total Protein 6.1 g/dL (6.3-8.2)
--- NOTE | 2023-10-28 18:02 | PM.OP.1 ---
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 He had some minor trauma postoperatively and developed some drainage. He went on to have issues with drainage and was seen in the office he was felt to have a hematoma but there was concern for periprosthetic joint infection and he is brought to the operation room for irrigation and debridement possible revision of 1 component as needed. Serious nature of the procedure options risks benefits and complications discussed in detail. We do not have a definitive bacteria but his clinical exam was highly suspicious for periprosthetic infection and it was felt important to proceed with irrigation and debridement and attempted salvage of his prosthesis. Surgeon: Argentina Lazo Travel Assistant: Andrew Mejia Anesthesia Type: General Operative Notes Findings: Active wound drainage with a tract that tracked down through the fascia towards the prosthesis, granulation type tissue no gross pus but some hematoma and fibrinous tissue Closure Type: primary Specimen(s): other (Multiple cultures x3 with Gram stain culture and sensitivity and PCR) Prosthetic devices, grafts, tissues, transplants, or devices: Lazo and nephew size 62 +4 lateralized 40 mm liner and a 40 mm Oxinium head with a +4, Stimulan beads with tobramycin and vancomycin Applied: drain(s) Estimated Blood Loss (mL): 400 Blood products transfused: none Procedure in detail: The patient was seen in the pre-operative area, where the patient identified the left hip as the operative site and this was marked with my initials. The patient received pre-operative antibiotics and was taken to the operating room and placed on the operative table in the right lateral decubitus position after satisfactory anesthesia. A interactive multimedia designer out was performed. The left leg was prepared from the ankle to the iliac crest with ChloroPrep in the usual fashion and draped through sterile drapes. A PA was used during the procedure and was essential for intraoperative retraction and safe implantation of the components. The hip was approached through the patient's previous incision excising the previous incision centered over the greater trochanter and curving gently posteriorly as it went proximally. The previous skin and the area of wound breakdown and drainage was excised. There was a deep tract that tracked down through the fascia and into the prosthesis. A self retaining retractor was placed. The inflamed and erythematous tissue was meticulously excisionally debrided. I debrided any fascia which appeared to be necrotic or ischemic. We sent hip deep cultures and a portion of the tissue from directly around the femoral neck and a portion of the tissue from down along the acetabulum and 3 separate specimens for culture and sensitivity. Anything that appeared at all necrotic or likely grossly infected was carefully excised with care being taken to avoid the sciatic nerve, which was identified and protected throughout the case. The hip was dislocated and the femoral head and neck piece were carefully removed. The draining area clearly tracked this is. I meticulously scrubbed around the prosthesis took out the polyethylene scrub the backside of the polyethylene used a small curette and meticulously scrubbed along the rim of the acetabulum and used rongeur and a curette to scrub along the femoral neck and trocar piece. Carefully debrided anything that looked grossly infected. Polyethylene was removed without significant difficulty. It was a +4 lateralized liner. Carefully attempted to mobilize the femur as much as possible. We then did multiple irrigations with dilute normal saline Betadine and hydrogen peroxide with a full 3 minute soak on all of the components. We completely cleaned and scrubbed as much as possible and used a Hurt debride any tissue that looked like it had possibility of bacterial contamination. A +4 lateralized liner was selected. It was somewhat difficult to get it positioned because of the patient's large body habitus and some difficulty fully mobilizing the femur. But we were able to get it satisfactorily positioned and then carefully tamped into place and specifically checked the rim around the prosthesis and the locking mechanism to make that it sure that it was adequately locked. Trial reduction was performed. The patient was stable in the position of sleep, of squatting, and could be put through a range of motion with 45 degrees internal rotation without dislocation. At 90 degrees flexion, internal rotation to 80? was possible before dislocation. We did a repeat hydrogen peroxide and Betadine soak was performed while trialing with head options. The hip was meticulously irrigated with normal saline. Finally the femoral head was impacted onto the stem. The acetabulum was cleared of all material and the hip relocated one final time. Antibiotic beads were mixed on the asps back table with Stimulan with tobramycin and vancomycin. They were meticulously packed into the hip particularly around the component and the acetabular cup and rim. A deep drain was placed and brought out anteriorly. The fascia shawn was closed with interrupted PDS. Additional vanco powder was used. The subcutaneous layer was closed with PDS interrupted. A lolis Dressing was applied and the patient was taken to recovery having tolerated the procedure well. Complications: none Post-operative Condition: stable Disposition: Acute Care Plan for aftercare: The patient will be maintained on a standard total hip replacement protocol with weight bearing as tolerated and posterior hip precautions. The patient will receive Aspirin and sequential compression devices for DVT prophylaxis. The patient will be discharged home when safe for the home environment. We will check his Gram stain culture and sensitivities tomorrow and attempt to sort out appropriate antibiotics. I think he needs a course of IV antibiotics. We are going to place a PICC line tomorrow. His preoperative hematocrit was 25 we did have some blood loss intraoperatively and it was felt that he likely would require postoperative blood transfusion or in the recovery room. He can be out of bed weight-bearing as tolerated on left lower extremity. We will attempt to arrange outpatient follow up with infectious disease.
[2023-10-28] MEDS: ACETAMINOPHEN IV 1,000 MG/100 ML VIAL 400 MG IV ×2 (18:15→21:05)
[2023-10-28] MEDS: ONDANSETRON 4 MG/2 ML INJ IV (18:34)
[2023-10-28] MEDS: HYDROMORPHONE 1 MG INJ IV (18:35)
[2023-10-28] MEDS: LORazepam 2 MG/ML INJ ×2 (18:36→18:54)
--- NOTE | 2023-10-28 19:03 | P.CONS_ITS ---
History of Present Illness Consult details Date Patient Seen: 10/28/23 Chief complaint: L Hip Infection Reason for consult: Postoperative hypotension. Requesting provider: Argentina Lazo Narrative: Patient was a 58-year-old male who is status post surgery for an infected left hip. The patient had an EBL approximately 500 mL. He had general anesthesia and received 3 mg of Dilaudid 1 mg of Ativan in the postoperative setting. The patient developed tachycardia and hypotension at approximately 4:30 p.m.. The patient was he is seen in the PACU in his comfortable and able to talk without difficulty. He was tachycardia of 110 and a blood pressure of 100 systolic. He states he feels anxious but otherwise comfortable. Denies any chest pain or dyspnea. He does have some left hip pain but rates the anxiety is more of an issue. He does have a history of a preoperative weight loss of 50 lb. He also has a note of a resting tachycardia and anemia. He had a recent workup with a negative EGD and colonoscopy. The patient takes blood pressure medications and depression medications. He was on aspirin. His case was otherwise uncomplicated but there was evidence of a periprosthetic infection. I spoke with the nurse jewellery designer to detailed the EBL and general nature of the case. The patient's postoperative H&H was 7 and 21 and 1 unit of blood since being given while I evaluated the patient. Meds Home Medications and Allergies Home Medications Medication Instructions Recorded Confirmed Type naloxone 4 mg/actuation nasal spray 1 spray intranasal Q2-3M give 10/25/23 10/27/23 Rx immediately in case of narcotic overdose #2 ea oxycodone 5 mg tablet 10 mg (2 x 5 mg) PO BID PRN pain, 10/25/23 10/27/23 Rx moderate #60 tabs acetaminophen 325 mg capsule 650 mg PO Q4H PRN Pain (Scale 10/27/23 10/27/23 History (Tylenol) Score 1-3) aspirin 81 mg tablet,delayed 81 mg PO DAILY 10/27/23 10/27/23 History release cephalexin 500 mg capsule 500 mg PO 4XD 10/27/23 10/27/23 History lisinopril 10 0.5 tab PO BEDTIME for blood 10/27/23 10/27/23 History mg-hydrochlorothiazide 12.5 mg pressure. take every day even if tablet normal. sertraline 100 mg tablet 150 mg PO BEDTIME 10/27/23 10/27/23 History Allergies Allergy/AdvReac Type Severity Reaction Status Date / Time No Known Drug Allergies Allergy Verified 10/21/23 14:12 Review of Systems Review of Systems Narrative: Denies chest pain, dyspnea, or abdominal pain. All else reviewed otherwise negative. Exam Vital Signs (past 8 hours): - 10/28/23 12:00 10/28/23 14:45 10/28/23 14:47 Temperature 97.0 F L 97.4 F L Pulse Rate 75 74 Respiratory Rate 12 16 Blood Pressure 94/52 L 107/54 L Pulse Oximetry 100 97 Oxygen Delivery Method Room Air Room Air Oxygen Flow Rate 0 10/28/23 18:03 10/28/23 18:08 10/28/23 18:14 Temperature 97.6 F Pulse Rate 118 H 111 H 112 H Respiratory Rate 14 11 L 12 Blood Pressure 94/61 99/55 L 99/63 Pulse Oximetry 100 98 98 Oxygen Delivery Method Room Air Room Air Room Air Oxygen Flow Rate 10/28/23 18:18 10/28/23 18:22 10/28/23 18:30 Temperature Pulse Rate 113 H 120 H 129 H Respiratory Rate 16 23 32 H Blood Pressure 85/53 L 115/80 97/56 L Pulse Oximetry 98 100 100 Oxygen Delivery Method Room Air Room Air Room Air Oxygen Flow Rate 10/28/23 18:35 10/28/23 18:40 10/28/23 18:45 Temperature 98.2 F Pulse Rate 124 H 118 H 115 H Respiratory Rate 40 H 38 H 34 H Blood Pressure 100/60 99/64 108/61 Pulse Oximetry 100 100 100 Oxygen Delivery Method Room Air Room Air Room Air Oxygen Flow Rate 10/28/23 18:45 10/28/23 18:50 10/28/23 18:55 Temperature 96.9 F L Pulse Rate 112 H 119 H 105 H Respiratory Rate 37 H 12 13 Blood Pressure 108/61 100/57 L 106/58 L Pulse Oximetry 99 100 Oxygen Delivery Method Room Air Nasal Cannula Oxygen Flow Rate 3 Oxygen Delivery Method Nasal Cannula Oxygen Flow Rate 3 Narrative Exam Narrative: NAD, alert and oriented, fluent speech, calm. He was with normal mental status. He was obese. Normocephalic skull, EOMI, anicteric sclera, symmetric pupils. Oropharynx unremarkable, no droop. Neck with midline trachea. Lungs clear, normal rate and effort. Heart regular, no murmur gallop or rub. Abdomen is soft, non distended and non tender. Extremities are free of edema. Skin is free of rash or lesions. Joints are not swollen or deformed. Judgment appears to be normal. Objective Labs 10/28/23 17:24 10/28/23 17:24 Labs: Laboratory Results - last 24 hr 10/28/23 10/28/23 15:57 17:24 WBC 14.6 H D RBC 2.37 L Hgb 7.1 L Hct 21.8 L MCV 91.8 MCH 30.1 MCHC 32.8 RDW 13.3 Plt Count 435 H Neut % (Auto) 77.0 H Lymph % (Auto) 14.5 L [place] % (Auto) 6.4 Eos % (Auto) 1.4 L Baso % (Auto) 0.7 Neut # (Auto) 12810 H Lymph # (Auto) 2100 [place] # (Auto) 900 Eos # (Auto) 200 Baso # (Auto) 100 Sodium 134 L Potassium 4.5 Chloride 104 Carbon Dioxide 26 BUN 19 Creatinine 1.21 Estimated GFR > 60 BUN/Creatinine Ratio 15.7 Glucose 114 H Calcium 8.1 L Total Bilirubin 0.4 AST 33 ALT 21 Alkaline Phosphatase 105 Total Protein 6.1 L Albumin 2.8 L Globulin 3.3 Albumin/Globulin Ratio 0.8 L Blood Type A Negative Antibody Screen Negative Crossmatch See Detail [facility] Medical History SVT (supraventricular tachycardia) BPH (benign prostatic hyperplasia) Psoriatic arthritis Social History household members: spouse Tobacco & Substance Use Smoking Status: Former smoker alcohol intake: former Assessment & Plan Assessment & Plan narrative: 1. Postoperative hypotension and tachycardia, active. 2. Postoperative anemia, acute on chronic. Active. 3. Chronic anemia of unclear etiology, active. 4. Chronic hypertension, not active currently. 5. Surgery for a periprosthetic infection, status post drainage. Plan: -1 unit of blood, with a another H and H at 10:00 p.m.. Anticipate another unit of blood if needed. -medical unit, monitor on telemetry to trend his blood pressure and heart rate. -empiric antibiotics. He was given Ancef and vancomycin in the operating room. -blood and wound cultures will be obtained and followed. I spoke with Dr. Lazo at the time of the evaluation showed general plan with her. Time-Based Coding :: 30 min spent with patient and on the chart (including review of chart, obtaining history, exam, reviewing outside data, placing orders, documenting exam and treatment plan, and counseling patient) on 10/27.
--- NOTE | 2023-10-28 19:16 | SUR.PHASEI ---
Patient resting much easier after administration of Tylenol IV, Ativan and Dillaudid. VSS. First unit of PRBCS infusing without difficulty and with no adverse reactions noted. See TAR for blood transfusion documentation.
[2023-10-28] MEDS: LACTATED RINGERS 1,000 ML 100 ML IV (22:10)
[2023-10-28] MEDS: SERTRALINE 50 MG TABLET 150 MG PO (22:14)
[2023-10-28] MEDS: DOCUSATE 100 MG CAPSULE PO (22:14)
[2023-10-28] MEDS: PIPERACILLIN/TAZO 3.375 GM in SODIUM CHLORIDE 0.9% 100 ML IV (22:16)
[2023-10-29] VITALS: BP 122/62; PULSE 94; RESP 20; TEMP 36.4; O2SAT 97
[2023-10-29 00:05] VITALS: BP 122/62; PULSE 94; RESP 20; TEMP 36.4; O2SAT 97
[2023-10-29] MEDS: PIPERACILLIN/TAZO 3.375 GM in SODIUM CHLORIDE 0.9% 100 ML IV ×3 (04:23→19:37)
[2023-10-29] MEDS: VANCOMYCIN 1,500 MG/300 ML PIGGYBACK 200 MG IV ×2 (04:37→17:37)
[2023-10-29 06:00] VITALS: BP 119/57; PULSE 100; RESP 21; TEMP 36.5; O2SAT 98
[2023-10-29] MEDS: ACETAMINOPHEN 325 MG TABLET 650 MG PO ×2 (06:17→13:13)
[2023-10-29] MEDS: OXYCODONE IR 5 MG TABLET 10 MG PO ×5 (06:18→20:35)
[2023-10-29 06:41] LABS: Add Manual Diff / Slide Review NO; Basophils Absolute Auto 0 /uL (0-100); Basophils Percent Auto 0.4 % (0-2); Eosinophils Absolute Auto 0 /uL (0-450); Eosinophils Percent Auto 0.4 % (2-4); Hematocrit 24.2 % (41-53); Hemoglobin 8.2 g/dL (13.5-17.5); Lymphocytes Absolute Auto 1300 /uL (1100-4500); Lymphocytes Percent Auto 15.4 % (25-40); Mean Corpuscular HGB Conc 33.9 % (30-36); Mean Corpuscular Hemoglobin 30.4 PG (26-34); Mean Corpuscular Volume 89.6 fL (80-100); Monocytes Absolute Auto 500 /uL (0-900); Neutrophils Absolute Auto 6700 /uL (1500-7000); Neutrophils Percent Auto 77.8 % (50-75); Platelet Count 355 X10^3/uL (150-400); Red Cell Distribution Width 13.8 % (11.6-14.8); White Blood Cell Count 8.6 X10^3/uL (4.5-11.0)
[2023-10-29 06:55] LABS: BUN Creatinine Ratio 14.8 (6-22); Blood Urea Nitrogen 20 mg/dL (9-20); Calcium 8.2 mg/dL (8.4-10.2); Carbon Dioxide 25 mmol/L (22-32); Chloride 103 mmol/L (98-107); Estimated Glomerular Filt Rate > 60 mL/min (>60); Glucose 116 mg/dL (70-100); HEMOLYSIS < 15 (0-50); Potassium 4.1 mmol/L (3.4-5.1); Sodium 132 mmol/L (137-145)
--- NOTE | 2023-10-29 07:45 | DI.RAD.S_ITS ---
PROCEDURE: XR CHEST FOR PICC 1V INDICATIONS: PICC PLACEMENT COMPARISON: [facility] ([employer]), CR, XR CHEST 2V, 04/19/2023, 9:01. FINDINGS: PICC was placed by the intravenous therapy team from the left side. Fluoroscopic spot film demonstrates the tip of PICC projecting to the area of mid SVC. IMPRESSION: Tip of PICC projects to the area of mid SVC. Approved by: Brian Beauchamp M.D. on 10/29/2023 at 11:24
[2023-10-29 08:00] VITALS: BP 109/53; PULSE 93; RESP 12; TEMP 36.2; O2SAT 97
[2023-10-29] MEDS: DOCUSATE 100 MG CAPSULE PO ×2 (08:37→20:32)
[2023-10-29] MEDS: ASPIRIN EC 81 MG TABLET PO ×2 (08:37→20:32)
--- NOTE | 2023-10-29 09:24 | P.PN_ITS ---
Subjective Subjective Interval history: Summary: He was seen in consultation for postoperative tachycardia and hypotension. He was given blood improved overnight. Subjective: He was having a lot of hip pain since physical therapy. His tachycardia and hypotension resolved with blood overnight. Exam Vital Signs (past 8 hours): - 10/29/23 06:00 10/29/23 07:00 10/29/23 08:00 Temperature 97.7 F 97.2 F L Pulse Rate 100 H 93 H Respiratory Rate 21 12 Blood Pressure 119/57 L 109/53 L Pulse Oximetry 98 97 Oxygen Delivery Method Room Air Oxygen Flow Rate 0 0 Fraction of Inspired Oxygen 21 SaO2/FiO2 Ratio 466 Oxygen Delivery Method Room Air Oxygen Flow Rate 0 Narrative Exam Narrative: NAD, alert and oriented. Fluent speech. Lungs are clear, normal rate and effort. Heart is regular, no murmur gallop or rub. Abdomen is soft, non distended. Extremities are free of edema. Left hip has no hematoma there is a drain in place. Mostly blood drainage. Objective Labs 10/29/23 05:25 10/29/23 05:25 Labs: Laboratory Results - last 24 hr 10/28/23 10/28/23 10/29/23 15:57 17:24 05:25 WBC 14.6 H D 8.6 RBC 2.37 L 2.70 L Hgb 7.1 L 8.2 L Hct 21.8 L 24.2 L MCV 91.8 89.6 MCH 30.1 30.4 MCHC 32.8 33.9 RDW 13.3 13.8 Plt Count 435 H 355 Neut % (Auto) 77.0 H 77.8 H Lymph % (Auto) 14.5 L 15.4 L [place] % (Auto) 6.4 6.0 Eos % (Auto) 1.4 L 0.4 L Baso % (Auto) 0.7 0.4 Neut # (Auto) 58412 H 6700 Lymph # (Auto) 2100 1300 [place] # (Auto) 900 500 Eos # (Auto) 200 0 Baso # (Auto) 100 0 Sodium 134 L 132 L Potassium 4.5 4.1 Chloride 104 103 Carbon Dioxide 26 25 BUN 19 20 Creatinine 1.21 1.35 H Estimated GFR > 60 > 60 BUN/Creatinine Ratio 15.7 14.8 Glucose 114 H 116 H Calcium 8.1 L 8.2 L Total Bilirubin 0.4 AST 33 ALT 21 Alkaline Phosphatase 105 Total Protein 6.1 L Albumin 2.8 L Globulin 3.3 Albumin/Globulin Ratio 0.8 L Blood Type A Negative Antibody Screen Negative Crossmatch See Detail [facility] Medical History SVT (supraventricular tachycardia) BPH (benign prostatic hyperplasia) Psoriatic arthritis Social History household members: spouse Smoking Status: Former smoker alcohol intake: former Assessment & Plan Assessment & Plan narrative: 1. Postoperative hypotension and tachycardia, improved. 2. Postoperative anemia, acute on chronic. improved. 3. Chronic anemia of unclear etiology, active. 4. Chronic hypertension, not active currently. 5. Surgery for a periprosthetic infection, status post drainage. Plan: -monitor volume of drainage. -PICC line ordered by Orthopedics. -continue IV antibiotics, discuss with Orthopedics. -monitor hemoglobin. -pain control with oxycodone 10 mg q.4 hours as needed pain. [facility]: 10/29. Time-Based Coding :: 20 min spent with patient and on the chart (including review of chart, obtaining history, exam, reviewing outside data, placing orders, documenting exam and treatment plan, and counseling patient) on 10/28. Quality VTE Deep Vein Thrombosis/Pulmonary Embolism Present on Admission: No
--- NOTE | 2023-10-29 10:01 | OT.IP.EVAL ---
Current Diagnoses Unspecified complication of procedure, initial encounter (10/28/23) Surgery Performed Operation Date: 10/28/23 14:30 Actual Procedures p INCISION AND DRAINAGE LEFT HIP WITH ANTIBIOTIC BEADS INSERTION(Left) - Argentina Lazo MD Past Medical History (Last Reviewed 10/28/23 @ 19:05 by Griffin Gauthier MD) BPH (benign prostatic hyperplasia) Psoriatic arthritis SVT (supraventricular tachycardia) Occupational Therapy Inpatient Evaluation/Re-Eval M1 PT/OT-IP Prior Functional Status Start: 10/29/23 09:35 Freq: NEEDED Status: Active Protocol: Document 10/29/23 09:37 MARIE (Rec: 10/29/23 10:00 MARIE [id number]) Medical Review Prior Functional Status Medical History Reviewed Yes Diet/Fluid Consistency Regular Communication pt able to make needs know without difficulty Mobility and Gait pt reports amb with FWW without assistance and required 's assist with transfers following hip sx Activities of Daily Living and IADL's pt has been performing a sponge bath. pt's has been assisting with BADL especially LB. Prior Functional Level (Other details) pt has been requiring min A from since L JOVAN 09/28/23. Prior to this pt was I with all mobility and BADL and work tasks. Social History Household Members spouse Living Arrangements House Number of Floors (Floors) One Floor Number of Stairs To Enter/Railing? 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 OT-IP Current Condition Start: 10/29/23 09:35 Freq: Status: Active Protocol: Document 10/29/23 09:37 MARIE (Rec: 10/29/23 10:00 MARIE [id number]) Occupational Therapy Current Condition Current Condition Evaluation Date 10/29/23 Treatment Diagnosis L JOVAN irrigation and debridement Diagnosis Onset Date 10/28/23 Post Operative Precautions Posterior Hip Precautions No Hip Flexion > 90 degrees,No Hip Internal Rotation,No Hip Adduction Weight Bearing Status Weight Bearing Status Weight Bear as Tolerated M3 OT- IP Subjective and Pain Start: 10/29/23 09:35 Freq: Status: Active Protocol: Document 10/29/23 09:37 IKEDARSHAN (Rec: 10/29/23 10:00 [facility] [id number]) OT- Subjective Occupational Therapy Visit Type Type Initial Evaluation Visit Start Time 08:35 Visit Stop Time 09:11 Notes Pt reclined in bed on entrance . pt agreeable to participating in skilled OT eval. Occupational Therapy Visit Comments Patient Comments Pt reports that he wants to return home soon. OT Pain Assessment Pain When Pain Assessed At Rest Pain Present Pain Present Pain Reported Location Left Hip Intensity 7 Scale Used Numeric (0 - 10) Description Aching M4 OT- IP ADL's Start: 10/29/23 09:35 Freq: Status: Active Protocol: Document 10/29/23 09:37 IKENHROCIODELORES (Rec: 10/29/23 10:00 [facility] [id number]) OT [id number] General Evaluation Self-Feeding Ability Independent OT ADL-Grooming General Evaluation Grooming Ability Independent Comments OT Grooming Comments sink side OT ADL-Oral Care General Eval Oral Care Ability Independent OT ADL-Dressing General Eval Upper Body Dressing Ability Independent Lower Body Dressing Ability Minimal Assistance Areas Needing Assistance Underpants/Brief,Pants/Shorts, Socks Assistive Devices Dressing Assistive Devices Dieing Out Machine Operator,Sock Aid Comments OT Dressing Comments pt sitting EOB for dressing. pt donned sock with sockaid and [place]. pt required education for using carton forming machine tender for under wear. pt was able to initiate L LE in under wear and pull up to his knees. pt declined to wear them at this time. OT ADL-Toileting Comments OT Toileting Comments pt declined during eval. I don't need to right now OT ADL-Bathing Bathing Type Bathing Type Sponge Bath General Evaluation Bathing Ability Minimal Assistance,Moderate Assistance Comments OT Bathing Comments pt has been performing sponge baths at home. pt needs min- mod A to maintain hip precautions. pt would benefit from a long handled sponge and extended tub bench. M5 OT- IP IADL's Start: 10/29/23 09:35 Freq: Status: Active Protocol: Document 10/29/23 09:37 IKEDARSHAN (Rec: 10/29/23 10:00 [facility] [id number]) OT-Instrumental Activities of Daily Living Home Safety Awareness Awareness of Need for Assistance at Home Good Awareness Ability to Problem Solve Emergency Able to Problem Solve Situations Medication Management Medication Management No Deficits Identified Money Management Money Management No Deficits Identified Meal Preparation Meal Preparation Caregiver Provides Assist Curator Of Photography And Prints Curator Of Photography And Prints Caregiver Provides Assist Driving Driving Caregiver Provides Assist M6 OT- IP Functional Cognition Start: 10/29/23 09:35 Freq: Status: Active Protocol: Document 10/29/23 09:37 MARIE (Rec: 10/29/23 10:00 [facility] [id number]) Cognitive Factors Limiting Selfcare Function Cognitive Ability Level of Alertness Alert Patient Orientation Name,Age,Birthday,Month,Date, Year,Day of Week,Place, Situation Attention Span Ability Capable of Focused Attention, Capable of Sustained Attention Ability to Follow Commands Able to Follow Multi-Step Commands Memory Description No Deficits Noted Safety Awareness No Deficits Noted Problem Solving Ability No deficits Noted Executive Function Ability No Deficits Noted Abstract Thinking Ability No Deficits Noted OT- Vision and Hearing OT- Hearing Assessment OT- Hearing Assessment WFL OT- Vision Assessment Visual Acuity WFL M7 OT- IP Mobility and Balance Start: 10/29/23 09:35 Freq: Status: Active Protocol: Document 10/29/23 09:37 MARIE (Rec: 10/29/23 10:00 [facility] [id number]) OT- Bed Mobility Assessment Supine to Sit Supine to Sit Assist Moderate Assistance,Head of Bed Elevated,Bedrails Scooting Scooting to Edge of Bed Standby Assistance OT-Transfer Assessment Sit to and From Stand Sit to and from Stand Minimal Assistance,Moderate Assistance,1 Person Assistance Technique Transfer Destination Bed Transfer Technique Stand Step Pivot Devices Transfer Assistive Devices Gait Belt,Front Wheeled Walker Comments Mobility Comments pt requires vcs for saftey. pt somewhat impulsive with sit> stand, vcs for hand placement and preparation for safe t/f. OT- Gait Assessment Gait Gait Assistance Required: Standby Assistance Distance (Feet) 20 Able to Maintain Weight Bearing Status Yes During Gait Assistive Devices Assistive Device Gait Belt,Front Wheeled Walker Comments Gait Ability Comments pt amb throughout his room with SBA while assisted with IV pole. pt returned to EOB and required vcs to side step to head of bed and to reach back prior to sitting. OT- Balance Assessment Sitting Balance and Reactions Static Sitting Balance Ability Normal Dynamic Sitting Balance Ability Good Standing Balance and Reactions Static Standing Balance Ability Good Dynamic Standing Balance Ability Good M8 OT- IP Objective Assessments Start: 10/29/23 09:35 Freq: Status: Active Protocol: Document 10/29/23 09:37 MARIE (Rec: 10/29/23 10:00 MARIE [id number]) OT Gross Range of Motion Upper Extremity Range of Motion Assessment Within Functional Limits OT Strength Upper Extremity Strength Assessment Within Functional Limits Hand Phys Assistant Strength Hand Dominance Right OT- Coordination Assessment Upper Extremity Finger to Nose Test Within Functional Limits M9 OT- IP Assessment and Plan Start: 10/29/23 09:35 Freq: Status: Active Protocol: Document 10/29/23 09:37 MARIE (Rec: 10/29/23 10:00 MARIE [id number]) OT Summary Assessment and Plan Potential Rehabilitation Potential Excellent Analytic Complexity at Evaluation Low Summary OT Impairments Pain,Balance,Functional Mobility,Dressing,Toileting, Bathing,Toilet Transfers Progress Towards Goals Progressing Toward Goals Assessment Summary Pt is 58 yo M who underwent L JOVAN on 09/29/23 and was d/c home on 09/30/23. Pt underwent irrigation and debridement of L JOVAN on 10/28/23. Pt lives with his spouse and son is able to assists prn. Pt is unable to state hip precautions. OT reviewed hip precautions and pt verbalized remembering them. Pt has carton forming machine tender and sock aid at home, but has not been using them. Pt's spouse has been assisting with LB BADL needs. Pt would benefit from skilled OT services to educate on hip precautions, especially with how they impact BADL/IADL needs, BADL training, and functional t/f education to promote return to PLOF. Goals Dressing Goal Standby Assistance,Dieing Out Machine Operator, Sock Aid Toileting Goal Independent Bathing Goal Standby Assistance Toilet Transfer Goal Independent Shower Transfer Goal Minimal Assistance,Tub Transfer Bench,Grab Bars Days to Meet Goals 5 Frequency of Treatment Frequency Of Treatment Once a Day Treatment Plan OT Treatment Plan ADL Training,Functional Mobility,Therapeutic Exercises ,Patient/Family Education Other Treatment Recommendations and Next hip precaution education, AE Treatment Focus education for LB ADL Discharge Recommendations OT Discharge Recommendations Home with Assistance, Outpatient PT Home Equipment Needs extended tub bench, long handled sponge Transportation Needs at Discharge Private Vehicle
--- NOTE | 2023-10-29 10:30 | PT.IIE ---
Current Diagnoses Unspecified complication of procedure, initial encounter (10/28/23) Surgery Performed Operation Date: 10/28/23 14:30 Actual Procedures p INCISION AND DRAINAGE LEFT HIP WITH ANTIBIOTIC BEADS INSERTION(Left) - Argentina Lazo MD Medical History (Last Reviewed 10/28/23 @ 19:05 by Griffin Gauthier MD) BPH (benign prostatic hyperplasia) Psoriatic arthritis SVT (supraventricular tachycardia) Physical Therapy Inpatient Evaluation/Re-Eval M1 PT/OT-IP Prior Functional Status Start: 10/29/23 12:36 Freq: NEEDED Status: Active Protocol: Document 10/29/23 10:30 AB (Rec: 10/29/23 13:09 AB [id number]) Medical Review Prior Functional Status Medical History Reviewed Yes Diet/Fluid Consistency Regular Communication pt able to make needs know Mobility and Gait pt able to ambulate using FWW but spouse assists with bed mobility and transfers/sit to stand Activities of Daily Living and IADL's per OT note: pt has been performing a sponge bath. pt's has been assisting with BADL especially LB. Prior Functional Level (Other details) per OT note: pt has been requiring min A from since L JOVAN 09/28/23. Prior to this pt was I with all mobility and BADL and work tasks. Social History Household Members spouse Living Arrangements House Number of Floors (Floors) One Floor Number of Stairs To Enter/Railing? 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 M2 PT-IP Current Condition Start: 10/29/23 12:36 Freq: NEEDED Status: Active Protocol: Document 10/29/23 10:30 AB (Rec: 10/29/23 13:09 AB [id number]) Physical Therapy Current Condition Current Condition Evaluation Date 10/29/23 Treatment Diagnosis L hip infection s/p I&D; difficulty in walking Onset Date 10/28/23 M3 PT-IP Subjective Start: 10/29/23 12:36 Freq: NEEDED Status: Active Protocol: Document 10/29/23 10:30 AB (Rec: 10/29/23 13:09 [id number]) Subjective Physical Therapy Visit Type Type Initial Evaluation Visit Start Time 10:30 Visit Stop Time 11:05 Number of SALES AND PRODUCTION MANAGER Visits 0 Therapy Pain Assessment Pain When Pain Assessed At Rest Pain Present Pain Present Pain Reported Location Left Hip Intensity 7 Pain Management Techniques Distraction,Modification of Treatment,Re-positioning, Timing of Activity with Medications M4 PT-IP Mobility and Gait Start: 10/29/23 12:36 Freq: NEEDED Status: Active Protocol: Document 10/29/23 10:30 AB (Rec: 10/29/23 13:09 [id number]) PT-Bed Mobility Assessment Supine to Sit Supine to Sit Maximum Assistance,Head of Bed Elevated,Bedrails PT-Transfer Assessment Sit to and From Stand Sit to and from Stand Maximum Assistance,1 Person Assistance,Use of Upper Extremities Equipment Transfer Assistive Device Gait Belt,Front Wheeled Walker Orthotic/Prosthetic Devices or Brace: No Comments Mobility Comments pt supine in bed. c/o 7/10 hip pain but initially refusing pain meds. educated pt and agreed to take pain meds and nurse provided. obtained PLOF and home set up from pt and spouse. reviewed posterior hip precautions from pt and pt only recalled 1/3. educated pt on hip precautions and continues not to remember. BP: 146/58 completed supine to sit x 2 attemts. pt initially attempting to do a log roll supine to sit to L side but unable to complete with c/o increase L hip pain. instructing pt to dangle LE to EOB but unable and pt became agitated due to pain. repostioned pt. pt shouted that he had enough and that is all he will do. pt rested and repositioned. PT asked pt to try again. HOB elevated and instructed pt to sit up and completed max A and cues. able to sit on EOB CGA. pt agreed to walk. completed sit to tand x 3 attempts and unable to follow hip precautions. max A needed and max cues. ambulated in room using FWW min A and cues ~ 40 ft. pt is impulsive and easly gets agitated affecting safety awareness. pt sat back on EOB. requested to just stay seated on EOB. call light and table placed within reach. provided pt with post-op hip folder. left pt with spouse. Gait Assessment Gait Gait Assistance Required: Minimum Assistance,1 Person Assist Distance (Feet) 40 Able to Maintain Weight Bearing Status Yes During Gait Assistive Devices Assistive Device Gait Belt,Front Wheeled Walker Orthotic/Prosthetic Devices or Brace: No Gait Deviations General Gait Pattern Antalgic,Decreased Stride Length,Decreased Feet Clearance,Step-to Gait Factors Limiting Gait Function Factors Limiting Gait Function Decreased Activity Tolerance, Decreased Strength,Limited Range of Motion,Pain,Poor Balance,Poor Safety Awareness PT-Balance Assessment Sitting Balance and Reactions Static Sitting Balance Ability Good Dynamic Sitting Balance Ability Fair Standing Balance and Reactions Static Standing Balance Ability Fair Dynamic Standing Balance Ability Poor Device Used FWW M5 PT-IP Objective Assessments Start: 10/29/23 12:36 Freq: NEEDED Status: Active Protocol: Document 10/29/23 10:30 AB (Rec: 10/29/23 13:09 AB [id number]) Orientation Orientation/Cognition Level of Alertness Alert Orientation Name,Place,Situation Safety Awareness Decreased Safety Awareness Memory Description No Deficits Noted Gross Range of Motion Lower Extremity ROM Assessment Within Functional Limits Strength Lower Extremity Strength Assessment Left Impaired Hip 3-/5 Knee 3+/5 Muscle Tone Muscle Tone WNL Yes M6 PT-IP Treatment Start: 10/29/23 12:36 Freq: NEEDED Status: Active Protocol: Document 10/29/23 10:30 AB (Rec: 10/29/23 13:09 AB [id number]) Physical Therapy Treatment Education Education Provided Precautions,Weight Bearing Status,Post-Op Packet,Safety M7 PT-IP Assessment and Plan Start: 10/29/23 12:36 Freq: NEEDED Status: Active Protocol: Document 10/29/23 10:30 AB (Rec: 10/29/23 13:09 AB [id number]) PT Summary Assessment and Plan Potential Rehabilitation Potential Fair Status of Condition at Evaluation Evolving Summary Impairments Pain,ROM,Strength,Balance, Coordination,Sensation,Tone, Cognition,Bed Mobility, Transfers,Gait,Activity Tolerance Assessment Summary pt is a 58 y/o M who had a L JOVAN posterior 09/29/23 but now had a L hip infection and underwent I&D 10/28/23. pt will have L hip posterior precautions and is WBAT. pt requiring max A for bed mobility, max A for sit to stand and min A for ambulation using FWW. spouse will assist pt at home. will conducted caregiver training when appropriate and stair climbing training prior to d/c . will continue to assess. Goals Bed Mobility Goal Standby Assistance Transfer Goal Standby Assistance,Front Wheeled Walker Gait Goal Standby Assistance,Front Wheel Walker Gait Distance 100 Other Goals improve transfers and ambulation using LRAD ~ 200 ft mod I Days to Meet Goals 10 Frequency of Treatment Frequency Of Treatment Once a Day Treatment Plan Physical Therapy Treatment Plan Bed Mobility Training,Transfer Training,Gait Training, Therapeutic Exercise,Balance Retraining,Post Op Education, Discharge Planning,Hot or Cold Pack,Neuromuscular Re-ed, Coordination Retraining,Manual Therapy Precautions Posterior Hip Precautions No Hip Flexion > 90 degrees,No Hip Internal Rotation,No Hip Adduction Weight Bearing Status Weight Bearing Status Weight Bear as Tolerated Allowed Weight Bearing Amount (enter % LLE WBAT or #) (%) Recommendations To Nursing Amount of Assist Needed 1 Person Assist Discharge Recommendations PT Discharge Recommendations Home with 19/10 Assist Available,Home Health Transportation Needs at Discharge Private Vehicle,Wheelchair/ Cabulance
--- NOTE | 2023-10-29 13:45 | CM.DPC ---
DCP Continued: Reviewed EMR and team rounds for pt?s medical status. Per Provider and RN, pt will stay one more night as IV antibiotics at dc is being determined. Pt has a PICC line placed. Per PT/OT, pt is being recommended to discharge home with spouse assist. Possible discharge needs being monitored is priority boarding pass at discharge back to [facility]. Plan: Anticipating discharge home on IV antibiotics, pending determination of prescription. CM Team will continue to follow for coordination of discharge plans. RAMANDEEP Fields
[2023-10-29 16:00] VITALS: BP 132/66; PULSE 91; RESP 16; TEMP 36.2; O2SAT 100
--- NOTE | 2023-10-29 17:09 | P.PN_ITS ---
Subjective Subjective Date Patient Seen: 10/29/23 Time Patient Seen: 14:40 Interval history: Pt sitting up in bed, pain well controlled, though says it was worse after PT today. He says things went well with PT, which is unsurprising as he had been doing pretty well at home prior to this admission. He is eating and urinating without difficulty. PICC line has been placed. Exam Vital Signs (past 8 hours): - 10/29/23 16:00 Temperature 97.2 F L Pulse Rate 91 H Respiratory Rate 16 Blood Pressure 132/66 Pulse Oximetry 100 Oxygen Flow Rate 0 Fraction of Inspired Oxygen 21 SaO2/FiO2 Ratio 466 Oxygen Delivery Method Room Air Oxygen Flow Rate 0 Narrative Exam Narrative: 5/5 strength in hip flexors, quadriceps, hamstrings, DF, PF, EHL on left. Sensation to light touch intact thoughout LLE, calf soft and compressible. KIMBERLY functioning, scant bloody drainage. Hemovac w/ 60mL of bloody drainage recorded. Objective Labs 10/29/23 05:25 10/29/23 05:25 Labs: Laboratory Results - last 24 hr 10/28/23 10/28/23 10/29/23 15:57 17:24 05:25 WBC 14.6 H D 8.6 RBC 2.37 L 2.70 L Hgb 7.1 L 8.2 L Hct 21.8 L 24.2 L MCV 91.8 89.6 MCH 30.1 30.4 MCHC 32.8 33.9 RDW 13.3 13.8 Plt Count 435 H 355 Neut % (Auto) 77.0 H 77.8 H Lymph % (Auto) 14.5 L 15.4 L Grainger % (Auto) 6.4 6.0 Eos % (Auto) 1.4 L 0.4 L Baso % (Auto) 0.7 0.4 Neut # (Auto) 19526 H 6700 Lymph # (Auto) 2100 1300 Grainger # (Auto) 900 500 Eos # (Auto) 200 0 Baso # (Auto) 100 0 Sodium 134 L 132 L Potassium 4.5 4.1 Chloride 104 103 Carbon Dioxide 26 25 BUN 19 20 Creatinine 1.21 1.35 H Estimated GFR > 60 > 60 BUN/Creatinine Ratio 15.7 14.8 Glucose 114 H 116 H Calcium 8.1 L 8.2 L Total Bilirubin 0.4 AST 33 ALT 21 Alkaline Phosphatase 105 Total Protein 6.1 L Albumin 2.8 L Globulin 3.3 Albumin/Globulin Ratio 0.8 L Blood Type A Negative Antibody Screen Negative Crossmatch See Detail PFSH Medical History SVT (supraventricular tachycardia) BPH (benign prostatic hyperplasia) Psoriatic arthritis Social History household members: spouse Smoking Status: Former smoker alcohol intake: former Assessment & Plan Post-op Assessment and plan (1) Status post hip surgery: Assessment and Plan narrative: 1) S/p I&D of postop hematoma, placement of antibiotic beads, replacement of acetabular liner and femoral head. Primary surgery was 09/29/2023. 2) Continue ASA 81mg BID for VTE prophylaxis. 3) Continue PT, WBAT, posterior hip precautions. 4) Multimodal pain control. 5) Will continue to wait for final cultures. GS showed no organisms, aerobic prelim no growth, anaerobic pending. Does not appear that PCR was ordered. Currently receiving vancomycin. (2) Acute on chronic anemia: Assessment and Plan narrative: Received 1 unit PRBCs postop yesterday, H/H responded appropriately. Appreciate help w/ management. Postoperative Procedures: Procedures Operation Date: 10/28/23 14:30 Actual Procedure Side Surgeon p INCISION AND DRAINAGE LEFT HIP WITH ANTIBIOTIC BEADS INSERTION Left Argentina Lazo MD Postoperative day: 1 Quality VTE Deep Vein Thrombosis/Pulmonary Embolism Present on Admission: No
[2023-10-29 20:32] VITALS: BP 117/55; PULSE 91
[2023-10-29] MEDS: lisinopriL 5 MG TABLET PO (20:32)
[2023-10-29] MEDS: hydroCHLOROthiazide 25 MG TABLET 6.25 MG PO (20:33)
[2023-10-29] MEDS: SERTRALINE 50 MG TABLET 150 MG PO (20:34)
[2023-10-30] VITALS (11 sets, daily range): BP systolic 87–127; BP diastolic 32–72; PULSE 77–96; RESP 16–20; TEMP 35.8–36.6; O2SAT 96–99
[2023-10-30] MEDS: ACETAMINOPHEN 325 MG TABLET 650 MG PO (00:19)
[2023-10-30] MEDS: OXYCODONE IR 5 MG TABLET 10 MG PO ×4 (00:20→19:50)
[2023-10-30] MEDS: PIPERACILLIN/TAZO 3.375 GM in SODIUM CHLORIDE 0.9% 100 ML IV ×2 (04:03→12:31)
[2023-10-30] MEDS: VANCOMYCIN TROUGH 1 REQUEST MISC (04:05)
[2023-10-30 04:48] LABS: Add Manual Diff / Slide Review NO; Basophils Absolute Auto 0 /uL (0-100); Basophils Percent Auto 0.5 % (0-2); Eosinophils Absolute Auto 200 /uL (0-450); Eosinophils Percent Auto 2.3 % (2-4); Lymphocytes Absolute Auto 2000 /uL (1100-4500); Lymphocytes Percent Auto 22.7 % (25-40); Mean Corpuscular HGB Conc 34.1 % (30-36); Mean Corpuscular Hemoglobin 30.4 PG (26-34); Mean Corpuscular Volume 89.2 fL (80-100); Monocytes Absolute Auto 700 /uL (0-900); Monocytes Percent Auto 7.5 % (3-14); Neutrophils Absolute Auto 5800 /uL (1500-7000); Platelet Count 302 X10^3/uL (150-400); Red Blood Cell Count 2.16 X10^6/uL (4.5-5.9); White Blood Cell Count 8.7 X10^3/uL (4.5-11.0)
[2023-10-30 04:52] LABS: BUN Creatinine Ratio 12.6 (6-22); Blood Urea Nitrogen 17 mg/dL (9-20); Calcium 8.2 mg/dL (8.4-10.2); Carbon Dioxide 25 mmol/L (22-32); Chloride 102 mmol/L (98-107); Estimated Glomerular Filt Rate > 60 mL/min (>60); Glucose 102 mg/dL (70-100); HEMOLYSIS < 15 (0-50); Potassium 3.7 mmol/L (3.4-5.1); Sodium 132 mmol/L (137-145)
[2023-10-30 04:56] LABS: Hemoglobin 6.6 g/dL (13.5-17.5)
[2023-10-30 04:57] LABS: Hematocrit 19.2 % (41-53)
[2023-10-30 05:04] LABS: Vancomycin Trough 16.5 ug/mL (10-20)
[2023-10-30] MEDS: VANCOMYCIN 1,500 MG/300 ML PIGGYBACK 200 MG IV (05:38)
[2023-10-30] MEDS: PANTOPRAZOLE 40 MG VIAL 20 MG IV (06:38)
[2023-10-30] MEDS: ASPIRIN EC 81 MG TABLET PO ×2 (07:59→20:21)
[2023-10-30] MEDS: DOCUSATE 100 MG CAPSULE PO ×2 (07:59→20:22)
[2023-10-30] MEDS: VANCOMYCIN PEAK 1 REQUEST MISC (09:40)
--- NOTE | 2023-10-30 09:44 | PM.PNPO.1 ---
Subjective Subjective Date Patient Seen: 10/30/23 Time Patient Seen: 09:44 Interval history: Pt sitting on edge of bed, finishing breakfast. Receiving PRBCs, says he is feeling better. No complaints, hoping to go home soon. H/H this morning 6.6/19.2, pt hypotensive, 1 unit PRBCs ordered by hospitalist. Exam Vital Signs (past 8 hours): - 10/30/23 06:00 10/30/23 07:49 10/30/23 08:06 Temperature 96.6 F L 97.1 F L 96.9 F L Pulse Rate 86 83 86 Respiratory Rate 18 16 16 Blood Pressure 89/50 L 87/40 L 96/39 L Pulse Oximetry 99 Oxygen Flow Rate 0 Fraction of Inspired Oxygen 21 SaO2/FiO2 Ratio 466 Oxygen Delivery Method Room Air Oxygen Flow Rate 0 Narrative Exam Narrative: 5/5 strength in hip flexors, quadriceps, hamstrings, DF, PF, EHL on left. Sensation to light touch intact throughout LLE, calf soft and compressible. KIMBERLY functioning w/ scant bloody drainage, hemovac had 110 mL of bloody drainage recorded. Objective Labs 10/30/23 04:30 10/30/23 04:30 Labs: Laboratory Results - last 24 hr 10/28/23 10/30/23 10/30/23 15:57 04:30 08:30 WBC 8.7 RBC 2.16 L Hgb 6.6 L* Hct 19.2 L* MCV 89.2 MCH 30.4 MCHC 34.1 RDW 14.0 Plt Count 302 Neut % (Auto) 67.0 Lymph % (Auto) 22.7 L Routt % (Auto) 7.5 Eos % (Auto) 2.3 Baso % (Auto) 0.5 Neut # (Auto) 5800 Lymph # (Auto) 2000 [place] # (Auto) 700 Eos # (Auto) 200 Baso # (Auto) 0 Sodium 132 L Potassium 3.7 Chloride 102 Carbon Dioxide 25 BUN 17 Creatinine 1.35 H Estimated GFR > 60 BUN/Creatinine Ratio 12.6 Glucose 102 H Calcium 8.2 L Vancomycin Peak 33.0 Vancomycin Trough 16.5 Blood Type A Negative Antibody Screen Negative Crossmatch See Detail [facility] Medical History SVT (supraventricular tachycardia) BPH (benign prostatic hyperplasia) Psoriatic arthritis Social History household members: spouse Smoking Status: Former smoker alcohol intake: former Assessment & Plan Post-op Assessment and plan (1) Status post hip surgery: Assessment and Plan narrative: 1) S/p I&D of postop hematoma, placement of antibiotic beads, replacement of acetabular liner and femoral head. Primary surgery was 09/29/2023. 2) Continue ASA 81mg BID for VTE prophylaxis. 3) Continue PT, WBAT, posterior hip precautions. 4) Multimodal pain control. 5) Will continue to wait for final cultures. GS showed no organisms, aerobic prelim no growth, anaerobic prelim no growth. Pt was rx'd 500mg cefalexin QID starting 10/22/2023. Does not appear that PCR was ordered. Currently receiving vancomycin, PICC in place. Messaged Dr Lazo re plan if cultures remain negative. (2) Acute on chronic anemia: Assessment and Plan narrative: Currently receiving 1 unit PRBCs. Appreciate hospitalist help with this pt. Postoperative Procedures: Procedures Operation Date: 10/28/23 14:30 Actual Procedure Side Surgeon p INCISION AND DRAINAGE LEFT HIP WITH ANTIBIOTIC BEADS INSERTION Left Argentina Lazo MD Postoperative day: 2 Quality VTE Deep Vein Thrombosis/Pulmonary Embolism Present on Admission: No
--- NOTE | 2023-10-30 11:37 | P.PN_ITS ---
Subjective Subjective Interval history: He says he is feeling better today. He received 1 unit of packed RBCs. He was up in a chair and he has been ambulating some in the room. His hip pain is diminished. He would like to go outside if possible. Exam Vital Signs (past 8 hours): - 10/30/23 06:00 10/30/23 07:49 10/30/23 07:50 Temperature 96.6 F L 97.1 F L 97.8 F Pulse Rate 86 83 77 Respiratory Rate 18 16 16 Blood Pressure 89/50 L 87/40 L 87/46 L Pulse Oximetry 99 97 Oxygen Delivery Method Oxygen Flow Rate 0 0 10/30/23 08:06 10/30/23 09:51 10/30/23 11:20 Temperature 96.9 F L 96.9 F L Pulse Rate 86 81 Respiratory Rate 16 16 Blood Pressure 96/39 L 91/32 L Pulse Oximetry Oxygen Delivery Method Room Air Oxygen Flow Rate Fraction of Inspired Oxygen 21 SaO2/FiO2 Ratio 466 Oxygen Delivery Method Room Air Oxygen Flow Rate 0 Narrative Exam Narrative: Dressing is dry, minimal pain with range of motion in the left hip, Hemovac drain is in place with clear drainage, calf soft, minimal pain with range of motion Objective Labs 10/30/23 04:30 10/30/23 04:30 Labs: Laboratory Results - last 24 hr 10/28/23 10/30/23 10/30/23 15:57 04:30 08:30 WBC 8.7 RBC 2.16 L Hgb 6.6 L* Hct 19.2 L* MCV 89.2 MCH 30.4 MCHC 34.1 RDW 14.0 Plt Count 302 Neut % (Auto) 67.0 Lymph % (Auto) 22.7 L [place] % (Auto) 7.5 Eos % (Auto) 2.3 Baso % (Auto) 0.5 Neut # (Auto) 5800 Lymph # (Auto) 2000 [place] # (Auto) 700 Eos # (Auto) 200 Baso # (Auto) 0 Sodium 132 L Potassium 3.7 Chloride 102 Carbon Dioxide 25 BUN 17 Creatinine 1.35 H Estimated GFR > 60 BUN/Creatinine Ratio 12.6 Glucose 102 H Calcium 8.2 L Vancomycin Peak 33.0 Vancomycin Trough 16.5 Blood Type A Negative Antibody Screen Negative Crossmatch See Detail [facility] Medical History SVT (supraventricular tachycardia) BPH (benign prostatic hyperplasia) Psoriatic arthritis Social History household members: spouse Smoking Status: Former smoker alcohol intake: former Assessment & Plan Post-op Assessment and plan (1) Acute on chronic anemia: (2) Status post hip surgery: (3) History of total left hip replacement: (4) Post-operative complication: (5) Anemia: (6) CKD (chronic kidney disease): (7) Cannabis dependence, daily use: (8) Morbid obesity: Postoperative Procedures: Procedures Operation Date: 10/28/23 14:30 Actual Procedure Side Surgeon p INCISION AND DRAINAGE LEFT HIP WITH ANTIBIOTIC BEADS INSERTION Left Argentinaarnulfo Lazo MD Postoperative day: 2 Postoperative status: anemia Postoperative status narrative: He has significant postoperative anemia. I agree with blood transfusion. I spoke with Dr. Gauthier. His cultures are growing a staph aureus in the sensitivities are pending. He will require IV antibiotics. We will wait until we get definitive sensitivities prior to adjusting his antibiotics. I anticipate he will be in the hospital at least until Wednesday and we will carefully follow his hematocrit and postoperative anemia. The overall plan is likely discharge for 6 weeks of IV antibiotics. Quality VTE Deep Vein Thrombosis/Pulmonary Embolism Present on Admission: No
--- NOTE | 2023-10-30 11:38 | PC.NURSE ---
recheck vitals post 1U of PRBC, b/p was: 85/35. Attempted a recheck several minutes later newest bp: 91/32. Patient remain asymptomatic at this time. Messaged provider (hospitalist on duty). Per providers orders we will recheck H/H now and anticipate more blood to be transfused. Provider is aware there are two units ready for pt in blood bank at this time. No further action at this time by nurse. Will continue with plan of care.
--- NOTE | 2023-10-30 12:15 | PT-IP ANOTE ---
Pt is receiving 1 unit of blood, possibly 2 this morning. PT will hold therapy until afternoon.
[2023-10-30 12:23] LABS: Hematocrit 20.2 % (41-53); Hemoglobin 6.9 g/dL (13.5-17.5)
--- NOTE | 2023-10-30 12:46 | PM.PN.1 ---
Subjective Subjective Interval history: Summary: He developed hypotension after a left hip exploration of periprosthetic infection. He was anemic, this is chronic. He was transfused and improved. He does have a drain and a Hemovac which have tapered off. He has had no since being in the operating room. He was more anemic this morning and a unit of blood was given. He also received a unit of blood right after his operation. Subjective: His pain is better. He was still weak. He denies any cough or shortness a breath. Exam Vital Signs (past 8 hours): - 10/30/23 06:00 10/30/23 07:49 10/30/23 07:50 Temperature 96.6 F L 97.1 F L 97.8 F Pulse Rate 86 83 77 Respiratory Rate 18 16 16 Blood Pressure 89/50 L 87/40 L 87/46 L Pulse Oximetry 99 97 Oxygen Delivery Method Oxygen Flow Rate 0 0 10/30/23 08:06 10/30/23 09:51 10/30/23 11:20 Temperature 96.9 F L 96.9 F L Pulse Rate 86 81 Respiratory Rate 16 16 Blood Pressure 96/39 L 91/32 L Pulse Oximetry Oxygen Delivery Method Room Air Oxygen Flow Rate Fraction of Inspired Oxygen 21 SaO2/FiO2 Ratio 466 Oxygen Delivery Method Room Air Oxygen Flow Rate 0 Narrative Exam Narrative: NAD, alert and oriented. Fluent speech. Lungs are clear, normal rate and effort. Heart is regular, no murmur gallop or rub. Abdomen is soft, non distended. Extremities are free of edema. Skin is pale. Drains in the left hip are with decreased output. Objective Labs 10/30/23 08:13 10/30/23 04:30 Labs: Laboratory Results - last 24 hr 10/28/23 10/30/23 10/30/23 15:57 04:30 08:13 WBC 8.7 RBC 2.16 L Hgb 6.6 L* 6.9 L* Hct 19.2 L* 20.2 L* MCV 89.2 MCH 30.4 MCHC 34.1 RDW 14.0 Plt Count 302 Neut % (Auto) 67.0 Lymph % (Auto) 22.7 L [place] % (Auto) 7.5 Eos % (Auto) 2.3 Baso % (Auto) 0.5 Neut # (Auto) 5800 Lymph # (Auto) 2000 [place] # (Auto) 700 Eos # (Auto) 200 Baso # (Auto) 0 Sodium 132 L Potassium 3.7 Chloride 102 Carbon Dioxide 25 BUN 17 Creatinine 1.35 H Estimated GFR > 60 BUN/Creatinine Ratio 12.6 Glucose 102 H Calcium 8.2 L Vancomycin Peak Vancomycin Trough 16.5 Blood Type A Negative Antibody Screen Negative Crossmatch See Detail 10/30/23 08:30 WBC RBC Hgb Hct MCV MCH MCHC RDW Plt Count Neut % (Auto) Lymph % (Auto) [place] % (Auto) Eos % (Auto) Baso % (Auto) Neut # (Auto) Lymph # (Auto) [place] # (Auto) Eos # (Auto) Baso # (Auto) Sodium Potassium Chloride Carbon Dioxide BUN Creatinine Estimated GFR BUN/Creatinine Ratio Glucose Calcium Vancomycin Peak 33.0 Vancomycin Trough Blood Type Antibody Screen Crossmatch [facility] Medical History SVT (supraventricular tachycardia) BPH (benign prostatic hyperplasia) Psoriatic arthritis Social History household members: spouse Smoking Status: Former smoker alcohol intake: former Assessment & Plan Assessment & Plan narrative: 1. Postoperative hypotension and tachycardia, active Gloria this morning. 2. Postoperative anemia, acute on chronic. Worse this morning. 3. Chronic anemia of unclear etiology, active. 4. Chronic hypertension, not active currently. 5. Surgery for a periprosthetic infection, status post drainage. Plan: -monitor volume of drainage. -we will give a unit of blood this morning and repeat hemoglobin. We will likely need a 2nd unit. -PICC line ordered by Orthopedics. -continue IV antibiotics, discuss with Orthopedics. We will focus antibiotics based on cultures. -monitor hemoglobin. -pain control with oxycodone 10 mg q.4 hours as needed pain. Inpatient status, needs at least 2 nights of hospital care. Full resuscitation. Met with patient and family and answer questions. Discussed [id number] with orthopedic surgeon, Dr. Lazo and Heather WADE Time-Based Coding :: 25 min spent with patient and on the chart (including review of chart, obtaining history, exam, reviewing outside data, placing orders, documenting exam and treatment plan, and counseling patient) on 10/29. Quality VTE Deep Vein Thrombosis/Pulmonary Embolism Present on Admission: No
--- NOTE | 2023-10-30 15:54 | CM.DPC ---
DCP Home Infusion Per Ortho, cultures still pending for plan of 6 weeks IV-Abx and pt likely here through the weekend and getting unit of blood due to H&H. SW faxed initial referral to [facility] and called the w/e answering service with the information and awaiting cultures to know which abx to run through insurance to determine any out of pocket expense. SW met bedside with pt and spouse and explained role and pt still mobilizing well with FWW and preference remains home with spouse assist. SW discussed possible outpt infusion clinic if only once a day dosing vs [facility] and currently leaning towards [facility] pending insurance coverage and any costs. SW provided [facility] brochure and pt and spouse very appreciative. Plan: SW to follow closely for culture results towards determining which IV-Abx for [facility] to run through insurance to determine any costs for plan of home with spouse assist when stable. Marybel Kapoor MSW
[2023-10-30] MEDS: VANCOMYCIN 1,250 MG/250 ML PIGGYBACK 200 MG IV (16:56)
[2023-10-30] MEDS: SERTRALINE 50 MG TABLET 150 MG PO (20:21)
[2023-10-30 20:44] LABS: Hemoglobin 8.3 g/dL (13.5-17.5)
[2023-10-31] VITALS (13 sets, daily range): BP systolic 97–147; BP diastolic 41–77; PULSE 75–810; RESP 15–20; TEMP 35.7–36.8; O2SAT 96–100
[2023-10-31] MEDS: PIPERACILLIN/TAZO 3.375 GM in SODIUM CHLORIDE 0.9% 100 ML IV ×2 (00:04→08:16)
[2023-10-31] MEDS: OXYCODONE IR 5 MG TABLET 10 MG PO ×6 (00:04→21:59)
[2023-10-31] MEDS: VANCOMYCIN 1,250 MG/250 ML PIGGYBACK 200 MG IV (05:40)
[2023-10-31 05:54] LABS: Add Manual Diff / Slide Review NO; Basophils Absolute Auto 0 /uL (0-100); Basophils Percent Auto 0.6 % (0-2); Eosinophils Absolute Auto 200 /uL (0-450); Eosinophils Percent Auto 3.1 % (2-4); Hematocrit 21.9 % (41-53); Hemoglobin 7.5 g/dL (13.5-17.5); Lymphocytes Absolute Auto 2200 /uL (1100-4500); Lymphocytes Percent Auto 27.6 % (25-40); Mean Corpuscular HGB Conc 34.1 % (30-36); Mean Corpuscular Hemoglobin 30.7 PG (26-34); Mean Corpuscular Volume 90.1 fL (80-100); Monocytes Absolute Auto 600 /uL (0-900); Monocytes Percent Auto 7.4 % (3-14); Neutrophils Absolute Auto 5000 /uL (1500-7000); Neutrophils Percent Auto 61.3 % (50-75); Platelet Count 273 X10^3/uL (150-400); Red Blood Cell Count 2.43 X10^6/uL (4.5-5.9); Red Cell Distribution Width 13.8 % (11.6-14.8); White Blood Cell Count 8.1 X10^3/uL (4.5-11.0)
[2023-10-31 06:04] LABS: Alanine Aminotransferase 12 IU/L (<50); Albumin 2.9 g/dL (3.5-5.0); Alkaline Phosphatase 90 U/L (38-126); Aspartate Aminotransferase 23 IU/L (17-59); BUN Creatinine Ratio 10.7 (6-22); Bilirubin Total 0.7 mg/dL (0.2-1.3); Blood Urea Nitrogen 14 mg/dL (9-20); Calcium 8.3 mg/dL (8.4-10.2); Carbon Dioxide 24 mmol/L (22-32); Chloride 106 mmol/L (98-107); Estimated Glomerular Filt Rate > 60 mL/min (>60); Glucose 94 mg/dL (70-100); HEMOLYSIS < 15 (0-50); Potassium 3.8 mmol/L (3.4-5.1); Sodium 133 mmol/L (137-145); Total Protein 5.9 g/dL (6.3-8.2)
--- NOTE | 2023-10-31 08:08 | PM.PN.1 ---
Subjective Subjective Interval history: Summary: He developed hypotension after a left hip exploration of periprosthetic infection. He was anemic, this is chronic. He was transfused and improved. He does have a drain and a Hemovac which have tapered off. He has had no since being in the operating room. He was more anemic this morning and a unit of blood was given. He also received a unit of blood right after his operation. -He remains anemic today. Subjective: Mild increase in hip pain towards the end of the afternoon. No change in the amount of drain output. Exam Vital Signs (past 8 hours): - 10/31/23 06:00 Temperature 96.9 F L Pulse Rate 79 Respiratory Rate 18 Blood Pressure 97/52 L Pulse Oximetry 99 Oxygen Flow Rate 0 Fraction of Inspired Oxygen 21 SaO2/FiO2 Ratio 466 Oxygen Delivery Method Room Air Oxygen Flow Rate 0 Narrative Exam Narrative: NAD, alert and oriented. Fluent speech. Lungs are clear, normal rate and effort. Heart is regular, no murmur gallop or rub. Abdomen is soft, non distended. Extremities are free of edema. Left hip wound and drains are unremarkable. Objective Labs 11/01/23 04:40 10/31/23 05:40 Labs: Laboratory Results - last 24 hr 10/28/23 10/30/23 10/30/23 15:57 08:13 08:30 WBC RBC Hgb 6.9 L* Hct 20.2 L* MCV MCH MCHC RDW Plt Count Neut % (Auto) Lymph % (Auto) [place] % (Auto) Eos % (Auto) Baso % (Auto) Neut # (Auto) Lymph # (Auto) [place] # (Auto) Eos # (Auto) Baso # (Auto) Sodium Potassium Chloride Carbon Dioxide BUN Creatinine Estimated GFR BUN/Creatinine Ratio Glucose Calcium Total Bilirubin AST ALT Alkaline Phosphatase Total Protein Albumin Globulin Albumin/Globulin Ratio Vancomycin Peak 33.0 Blood Type A Negative Antibody Screen Negative Crossmatch See Detail 10/30/23 10/31/23 20:40 05:40 WBC 8.1 RBC 2.43 L Hgb 8.3 L 7.5 L Hct 24.0 L 21.9 L MCV 90.1 MCH 30.7 MCHC 34.1 RDW 13.8 Plt Count 273 Neut % (Auto) 61.3 Lymph % (Auto) 27.6 [place] % (Auto) 7.4 Eos % (Auto) 3.1 Baso % (Auto) 0.6 Neut # (Auto) 5000 Lymph # (Auto) 2200 [place] # (Auto) 600 Eos # (Auto) 200 Baso # (Auto) 0 Sodium 133 L Potassium 3.8 Chloride 106 Carbon Dioxide 24 BUN 14 Creatinine 1.31 H Estimated GFR > 60 BUN/Creatinine Ratio 10.7 Glucose 94 Calcium 8.3 L Total Bilirubin 0.7 AST 23 ALT 12 Alkaline Phosphatase 90 Total Protein 5.9 L Albumin 2.9 L Globulin 3.0 Albumin/Globulin Ratio 1.0 Vancomycin Peak Blood Type Antibody Screen Crossmatch [facility] Medical History SVT (supraventricular tachycardia) BPH (benign prostatic hyperplasia) Psoriatic arthritis Social History household members: spouse Smoking Status: Former smoker alcohol intake: former Assessment & Plan Assessment & Plan narrative: 1. Postoperative hypotension and tachycardia, active Gloria this morning. 2. Postoperative anemia, acute on chronic. Worse this morning. 3. Chronic anemia of unclear etiology, active. 4. Chronic hypertension, not active currently. 5. Surgery for a periprosthetic infection, status post drainage. Plan: -monitor volume of drainage. -1 unit blood today. -PICC line was placed. - We will focus antibiotics based on cultures. Back to [facility] today. -monitor hemoglobin. -pain control with oxycodone 10 mg q.4 hours as needed pain. 1 dose IV dilaudid was given. Inpatient status, needs at least 2 nights of hospital care. Full resuscitation. Time-Based Coding :: 20 min spent with patient and on the chart (including review of chart, obtaining history, exam, reviewing outside data, placing orders, documenting exam and treatment plan, and counseling patient) on 10/30. Quality VTE Deep Vein Thrombosis/Pulmonary Embolism Present on Admission: No
[2023-10-31] MEDS: DOCUSATE 100 MG CAPSULE PO ×2 (08:16→20:37)
[2023-10-31] MEDS: PANTOPRAZOLE 40 MG VIAL 20 MG IV (08:16)
[2023-10-31 08:40] LABS: HEMOLYSIS 47 (0-50)
[2023-10-31 08:44] LABS: Reticulocyte Count, Percent 0.9 % (0.9-2.6)
[2023-10-31 08:44] LABS: Iron 36 ug/dL (49-181)
[2023-10-31 08:55] LABS: Percent Iron Saturation 17 % (20-50); Total Iron Binding Capacity 218 ug/dL (261-462); Transferrin 169 mg/dL (206-381)
[2023-10-31] MEDS: ACETAMINOPHEN 325 MG TABLET 650 MG PO ×2 (09:35→16:28)
[2023-10-31] MEDS: ONDANSETRON 4 MG ODT PO (09:36)
--- NOTE | 2023-10-31 10:34 | PM.PN.1 ---
Exam Vital Signs (past 8 hours): - 10/31/23 06:00 10/31/23 08:00 Temperature 96.9 F L 97.3 F L Pulse Rate 79 82 Respiratory Rate 18 18 Blood Pressure 97/52 L 109/41 L Pulse Oximetry 99 100 Oxygen Flow Rate 0 0 Fraction of Inspired Oxygen 21 SaO2/FiO2 Ratio 466 Oxygen Delivery Method Room Air Oxygen Flow Rate 0 Objective Labs 10/31/23 05:40 10/31/23 05:40 Labs: Laboratory Results - last 24 hr 10/28/23 10/30/23 10/30/23 15:57 08:13 20:40 WBC RBC Hgb 6.9 L* 8.3 L Hct 20.2 L* 24.0 L MCV MCH MCHC RDW Plt Count Neut % (Auto) Lymph % (Auto) [place] % (Auto) Eos % (Auto) Baso % (Auto) Neut # (Auto) Lymph # (Auto) [place] # (Auto) Eos # (Auto) Baso # (Auto) Percent Retic Sodium Potassium Chloride Carbon Dioxide BUN Creatinine Estimated GFR BUN/Creatinine Ratio Glucose Calcium Iron TIBC % Saturation Transferrin Total Bilirubin AST ALT Alkaline Phosphatase Total Protein Albumin Globulin Albumin/Globulin Ratio Blood Type A Negative Antibody Screen Negative Crossmatch See Detail 10/31/23 10/31/23 05:40 08:25 WBC 8.1 RBC 2.43 L Hgb 7.5 L Hct 21.9 L MCV 90.1 MCH 30.7 MCHC 34.1 RDW 13.8 Plt Count 273 Neut % (Auto) 61.3 Lymph % (Auto) 27.6 [place] % (Auto) 7.4 Eos % (Auto) 3.1 Baso % (Auto) 0.6 Neut # (Auto) 5000 Lymph # (Auto) 2200 [place] # (Auto) 600 Eos # (Auto) 200 Baso # (Auto) 0 Percent Retic 0.9 Sodium 133 L Potassium 3.8 Chloride 106 Carbon Dioxide 24 BUN 14 Creatinine 1.31 H Estimated GFR > 60 BUN/Creatinine Ratio 10.7 Glucose 94 Calcium 8.3 L Iron 36 L TIBC 218 L % Saturation 17 L Transferrin 169 L Total Bilirubin 0.7 AST 23 ALT 12 Alkaline Phosphatase 90 Total Protein 5.9 L Albumin 2.9 L Globulin 3.0 Albumin/Globulin Ratio 1.0 Blood Type Antibody Screen Crossmatch [facility] Medical History SVT (supraventricular tachycardia) BPH (benign prostatic hyperplasia) Psoriatic arthritis Social History household members: spouse Smoking Status: Former smoker alcohol intake: former Assessment & Plan Assessment & Plan narrative: POD #3 s/p left hip I&D and culture. Wound culture shows MSSA. IV ancef started and vanco discontinued. Discussed with pharmacist regarding possible outpatient antibiotic treatment including adjunct of rifampin 450 mg BID for patients with retained hardware s/p I&D. On exam, patient is neurovascularly intact. Dressing intact. A&O x 3 and very comfortably resting in bed. No S/S of DVT. Patient has ambulated with PT. Waiting on PCR that was sent out. Chronic anemia, s/p transfusion currently H/H 7.5/21.9. Drain with HV in place. Continue IV antibiotic therapy, mobility training, drain management, monitor H/H. Time-Based Coding :: [TOTAL MINUTES] spent with patient and on the chart (including review of chart, obtaining history, exam, reviewing outside data, placing orders, documenting exam and treatment plan, and counseling patient) on [DATE]. Quality VTE Deep Vein Thrombosis/Pulmonary Embolism Present on Admission: No
[2023-10-31] MEDS: CEFAZOLIN 2 GM/100 ML PREMIX 100 ML IV ×2 (11:23→18:25)
--- NOTE | 2023-10-31 11:38 | PT-IP ANOTE ---
Attempted to see pt this AM, however pt feeling fatigue due to frequent mobilization around room this AM and requests to hold until tomorrow.
[2023-10-31 12:35] LABS: Folate 10.8 ng/mL (2.76-20.0); Vitamin B12 498 pg/mL (239-931)
[2023-10-31] MEDS: HYDROMORPHONE 1 MG INJ IV (16:28)
[2023-10-31] MEDS: ONDANSETRON 4 MG/2 ML INJ IV (18:21)
[2023-10-31 19:52] LABS: Hematocrit 26.7 % (41-53)
[2023-10-31] MEDS: lisinopriL 5 MG TABLET PO (20:36)
[2023-10-31] MEDS: SERTRALINE 50 MG TABLET 150 MG PO (20:37)
[2023-10-31] MEDS: hydroCHLOROthiazide 25 MG TABLET 6.25 MG PO (20:37)
[2023-11-01] VITALS (10 sets, daily range): BP systolic 94–150; BP diastolic 51–84; PULSE 75–92; RESP 16–20; TEMP 35.9–36.5; O2SAT 97–100
--- NOTE | 2023-11-01 | DI.CT.S_ITS ---
PROCEDURE: CT HIP LEFT WITHOUT CON INDICATIONS: LEFT HIP PAIN TECHNIQUE: Noncontrast 3 mm axial sections acquired through the bony pelvis. Additional 3 mm axial sections acquired through the symptomatic hip joint, with coronal and sagittal reformats. COMPARISON: [facility], CR, XR PELVIS 1-2V, 09/29/2023, 10:13. [facility], CT, CT ABDOMEN PELVIS W CON, 07/29/2023, 20:22. [facility] [place], CR, XR PELVIS WITH LATERAL HIP LEFT, 10/13/2023, 12:10. [facility] [place], CR, XR PELVIS WITH LATERAL HIP LEFT, 10/27/2023, 12:29. FINDINGS: Image quality: Diagnostic. Beam hardening artifacts are noted from left hip prosthesis. Bones: Patient is status post prior left total hip arthroplasty and subsequent placement of antibiotic impregnated beads within left hip joint space. Beam hardening artifacts are noted from surgical hardware. No obvious hardware loosening is seen. The surgical screw within left acetabular roof appears extending beyond the cortical margin and is terminating within left gluteus minimus muscle suggest clinical correlation. No gross periprosthetic fracture is noted. No bony erosive changes or suspicious intraosseous lesion. Soft tissues: Postsurgical changes are noted in posterior lateral left hip soft tissue with presence of a surgical drain. No discrete drainable abscess collection is noted at this time. No discrete soft tissue mass. No pelvic free fluid or free air. No abnormal soft tissue calcifications. IMPRESSION: 1. Postsurgical changes in left hip as described above. Left acetabular screw appears to terminate within left gluteus minimus muscle, suggest clinical correlation. No evidence of gross hardware loosening. 2. No acute periprosthetic fracture. No CT evidence of osteomyelitis. No suspicious bony lesions. 3. No gross abscess collection or soft tissue mass. No pelvic free fluid or free air. No abnormal soft tissue calcifications. Dictated by: Demetri De Leon M.D. on 11/01/2023 at 8:55 Approved by: Demetri De Leon M.D. on 11/01/2023 at 9:05
[2023-11-01] MEDS: CEFAZOLIN 2 GM/100 ML PREMIX 100 ML IV ×3 (02:12→18:10)
[2023-11-01] MEDS: OXYCODONE IR 5 MG TABLET 10 MG PO ×5 (02:20→20:35)
[2023-11-01 04:56] LABS: Hematocrit 22.1 % (41-53); Hemoglobin 7.5 g/dL (13.5-17.5); Mean Corpuscular HGB Conc 34.1 % (30-36); Mean Corpuscular Hemoglobin 30.5 PG (26-34); Mean Corpuscular Volume 89.5 fL (80-100); Platelet Count 284 X10^3/uL (150-400); Red Blood Cell Count 2.47 X10^6/uL (4.5-5.9); Red Cell Distribution Width 13.8 % (11.6-14.8); White Blood Cell Count 9.9 X10^3/uL (4.5-11.0)
[2023-11-01 05:13] LABS: Vancomycin Trough 13.8 ug/mL (10-20)
[2023-11-01] MEDS: PANTOPRAZOLE DR 20 MG TABLET PO (06:01)
--- NOTE | 2023-11-01 06:26 | PC.NURSE ---
H&H post 1u PRBC last night 12/22.7. Dr. Wilks informed, ordered for follow up H&H. PICC and midline in place, dressing CDI, good blood return. 0600 Hgb dropped from 9 to 7.5 this morning, Dr. Wilks notified, no new orders at this time. pt remains alert,oriented x4, ambulates in the room, SBA, FWW. hemovac output 45ml, lolis in place. bed alarm activated. instructed pt to call for assistance.
--- NOTE | 2023-11-01 06:56 | PM.CALLCOV.1 ---
Call Coverage Note Note Narrative of Care Provided: [place] [facility] Cover Notified of am H/H Chart Reviewed 11/01/23 04:40 7.5?L g/dL ? 10/31/23 19:45 9.0?L g/dL 10/31/23 05:40 7.5?L g/dL Vitals completed, patient hypotension 11/01/2023 06:00 94/51 L mmHg 11/01/2023 01:09 150/84 H mmHg ABLA on chronic anemia 1 unit pRBC ordered for transfusion Follow up H/H 13.00 Discontinue IV fluids, ASA CT Left hip ordered given blood loss post pRBC transfusion 10/30 Faith Wilks, DO 11/01/23 07.00
[2023-11-01] MEDS: FERROUS SULFATE 325 MG TABLET PO ×2 (09:28→18:10)
[2023-11-01] MEDS: DOCUSATE 100 MG CAPSULE PO (09:28)
--- NOTE | 2023-11-01 09:45 | OT.IP.TRT ---
Current Diagnoses Anemia, unspecified (10/28/23) Morbid (severe) obesity due to excess calories (10/28/23) Cannabis dependence, uncomplicated (10/28/23) Other intraoperative and postprocedural complications and disorders of the musculoskeletal system (10/28/23) Chronic kidney disease, unspecified (10/28/23) Unspecified complication of procedure, initial encounter (10/28/23) Presence of left artificial hip joint (10/28/23) Other specified postprocedural states (10/28/23) Surgery Performed Operation Date: 10/28/23 14:30 Actual Procedures p INCISION AND DRAINAGE LEFT HIP WITH ANTIBIOTIC BEADS INSERTION(Left) - Argentina Lazo MD Occupational Therapy Treatment Note M2 OT-IP Current Condition Start: 10/29/23 09:35 Freq: Status: Active Protocol: Document 10/29/23 09:37 MARIE (Rec: 10/29/23 10:00 MARIE [id number]) Occupational Therapy Current Condition Current Condition Evaluation Date 10/29/23 Treatment Diagnosis L JOVAN irrigation and debridement Diagnosis Onset Date 10/28/23 Post Operative Precautions Posterior Hip Precautions No Hip Flexion > 90 degrees,No Hip Internal Rotation,No Hip Adduction Weight Bearing Status Weight Bearing Status Weight Bear as Tolerated M3 OT- IP Subjective and Pain Start: 10/29/23 09:35 Freq: Status: Active Protocol: Document 11/01/23 13:48 CGR (Rec: 11/01/23 13:54 CGR [id number]) OT- Subjective Occupational Therapy Visit Type Type Treatment Note Visit Start Time 09:22 Visit Stop Time 09:45 OT Pain Assessment Pain When Pain Assessed At Rest Pain Present Pain Present Pain Reported Location Left Hip Scale Used did not rate Pain Behaviors Guarding Management Techniques Distraction,Modification of Treatment,Re-positioning M4 OT- IP ADL's Start: 10/29/23 09:35 Freq: Status: Active Protocol: Document 11/01/23 13:48 CGR (Rec: 11/01/23 13:54 CGR [id number]) OT [id number] Comments OT Self-Feeding Comments not meal time OT ADL-Grooming General Evaluation Grooming Ability Independent Areas Needing Assistance Face Washing Comments OT Grooming Comments standing at sink OT ADL-Oral Care General Eval Oral Care Ability Standby Assistance Areas of Assistance Brushing Teeth Comments Oral Care Comments standing at sink OT ADL-Dressing Comments OT Dressing Comments not performed, pt and pt's state that he has been doing ok using the sock aide and chemical milling processor and that pt's sometimes assists. OT ADL-Toileting General Evaluation Toileting Ability Standby Assistance Comments OT Toileting Comments urinated seated on toielt OT ADL-Bathing Comments OT Bathing Comments not performed but pt requests shower. M5 OT- IP IADL's Start: 10/29/23 09:35 Freq: Status: Active Protocol: Document 10/29/23 09:37 MARIE (Rec: 10/29/23 10:00 IKEDCDARI [id number]) OT-Instrumental Activities of Daily Living Home Safety Awareness Awareness of Need for Assistance at Home Good Awareness Ability to Problem Solve Emergency Able to Problem Solve Situations Medication Management Medication Management No Deficits Identified Money Management Money Management No Deficits Identified Meal Preparation Meal Preparation Caregiver Provides Assist Suspension Cord Tier Suspension Cord Tier Caregiver Provides Assist Driving Driving Caregiver Provides Assist M6 OT- IP Functional Cognition Start: 10/29/23 09:35 Freq: Status: Active Protocol: Document 10/29/23 09:37 MARIE (Rec: 10/29/23 10:00 IKEDCDARI [id number]) Cognitive Factors Limiting Selfcare Function Cognitive Ability Level of Alertness Alert Patient Orientation Name,Age,Birthday,Month,Date, Year,Day of Week,Place, Situation Attention Span Ability Capable of Focused Attention, Capable of Sustained Attention Ability to Follow Commands Able to Follow Multi-Step Commands Memory Description No Deficits Noted Safety Awareness No Deficits Noted Problem Solving Ability No deficits Noted Executive Function Ability No Deficits Noted Abstract Thinking Ability No Deficits Noted OT- Vision and Hearing OT- Hearing Assessment OT- Hearing Assessment WFL OT- Vision Assessment Visual Acuity WFL M7 OT- IP Mobility and Balance Start: 10/29/23 09:35 Freq: Status: Active Protocol: Document 11/01/23 13:48 CGR (Rec: 11/01/23 13:54 CGR [id number]) OT-Transfer Assessment Sit to and From Stand Sit to and from Stand Standby Assistance Transfers Transfer Ability Standby Assistance Technique Transfer Destination Bed,Chair,Toilet Transfer Technique Stand Step Pivot Devices Transfer Assistive Devices Gait Belt,Front Wheeled Walker Comments Mobility Comments pt sitting on bench at window when OT entered. Pt ambulated into the bathroom for urination then up to sink for simple ADLs. Pt requested to sit EOB at end of session. OT- Gait Assessment Gait Gait Assistance Required: Standby Assistance Assistive Devices Assistive Device Gait Belt,Front Wheeled Walker OT- Balance Assessment Sitting Balance and Reactions Static Sitting Balance Ability Good Dynamic Sitting Balance Ability Good M8 OT- IP Objective Assessments Start: 10/29/23 09:35 Freq: Status: Active Protocol: Document 10/29/23 09:37 [facility] (Rec: 10/29/23 10:00 [facility] [id number]) OT Gross Range of Motion Upper Extremity Range of Motion Assessment Within Functional Limits OT Strength Upper Extremity Strength Assessment Within Functional Limits Hand Saturator Operator Strength Hand Dominance Right OT- Coordination Assessment Upper Extremity Finger to Nose Test Within Functional Limits M9 OT- IP Assessment and Plan Start: 10/29/23 09:35 Freq: Status: Active Protocol: Document 11/01/23 13:48 CGR (Rec: 11/01/23 13:54 CGR [id number]) OT Summary Assessment and Plan Potential Rehabilitation Potential Excellent Analytic Complexity at Evaluation Low Summary OT Impairments Pain,Balance,Functional Mobility,Dressing,Toileting, Bathing,Toilet Transfers Progress Towards Goals Progressing Toward Goals Assessment Summary Pt is 58 yo M who underwent L JOVAN on 09/29/23 and was d/c home on 09/30/23. Pt underweant irrigation and debridement of L JOVAN on 10/28/23. Pt lives with his spouse and son is able to assists prn. Pt is able to state 2/3 hip precautions. OT reviewed hip precautions and pt verbalized remembering them. Pt has chemical milling processor and sock aid at home, but has not been using them. Pt's spouse has been assisting with LB BADL needs. Pt would benefit from skilled OT services to educate on hip precautions, especially with how they impact BADL/IADL needs, BADL training, and functional t/f education to promote return to PLOF. Pt is hopeful to discharge home today. Goals Dressing Goal Standby Assistance,Iv Rn, Sock Aid Toileting Goal Independent Bathing Goal Standby Assistance Toilet Transfer Goal Independent Shower Transfer Goal Minimal Assistance,Tub Transfer Bench,Grab Bars Days to Meet Goals 5 Frequency of Treatment Frequency Of Treatment Once a Day Treatment Plan OT Treatment Plan ADL Training,Functional Mobility,Therapeutic Exercises ,Patient/Family Education Other Treatment Recommendations and Next hip precaution education, AE Treatment Focus education for LB ADL Discharge Recommendations OT Discharge Recommendations Home with Assistance, Outpatient PT Home Equipment Needs extended tub bench, long handled sponge Transportation Needs at Discharge Private Vehicle
[2023-11-01] MEDS: ACETAMINOPHEN 325 MG TABLET 650 MG PO (11:28)
--- NOTE | 2023-11-01 11:43 | PT-IP ANOTE ---
PT checks on pt who is receiving blood. Will check back at another time.
--- NOTE | 2023-11-01 11:52 | DI.CT.S_ITS ---
PROCEDURE: CT PELVIS W CON INDICATIONS: s/p hip surgery, continued blood loss TECHNIQUE: After the administration of intravenous contrast, 5 mm thick sections acquired from the iliac crests to the symphysis. 5 mm coronal and sagittal reformats were acquired. For radiation dose reduction, the following was used: automated exposure control, adjustment of mA and/or kV according to patient size. COMPARISON: [facility], CT, CT HIP LEFT WITHOUT CON, 11/01/2023, 7:37. FINDINGS: Image quality: Diagnostic. PELVIS: Peritoneum and Bowel: Bowel loops demonstrate normal wall thickness and caliber. No free fluid or air. Pelvic Organs: No pelvic mass. Bladder: Normal wall thickness, accounting for underdistension. Pelvic Nodes: No enlarged lymph nodes. Miscellaneous: No inguinal hernia is seen. Likely postsurgical seroma along lateral left hip and left proximal femur with surgical drain in place. No area of hyperdensity is seen to suggest active bleed. No enhancing soft tissue mass. No large intramuscular hematoma or fluid collection. Bones: Again noted is prior left total hip arthroplasty and subsequent placement of antibiotic impregnated beads within left hip joint space. No gross hardware loosening is seen. Hardware position is unchanged from earlier study from the same day. No gross bony erosive changes are noted. No suspicious intraosseous lesion. IMPRESSION: 1. Postsurgical changes from left total hip arthroplasty and antibiotic treatment not significantly changed from previous study. Possible postsurgical seroma surrounding left proximal femur and left greater trochanter . Left-sided surgical drain in place. No evidence of active bleeding. No large intramuscular hematoma. No soft tissue mass or other drainable fluid collection. 2. No acute fracture or dislocation. No suspicious intraosseous lesion. Surgical hardware positions unchanged from earlier study. Dictated by: Demetri De Leon M.D. on 11/01/2023 at 13:10 Approved by: Demetri De Leon M.D. on 11/01/2023 at 13:24
--- NOTE | 2023-11-01 12:49 | PT-IP ANOTE ---
Checked on pt a second time and he is still receiving blood. Pt has been up with assistance.
--- NOTE | 2023-11-01 13:12 | PC.NURSE ---
Patients blood was started around 1055, he is tolerating this well and has been given oxycodone for pain around 1130. Patient has a lolis dressing in place with a hemovac that is putting out sangenous drainage. He is up with sba and walker. patient had ct with and without contrast today. He is sitting at the side of the bed and resting. IV antibiotic infused this morning and patient is resting comfortably.
--- NOTE | 2023-11-01 13:57 | CM.DPC ---
Addendum entered by CHANCE Zhong 11/01/23 14:50: ADD: Hansel from [facility] confirms they can accept the HH referral. KEYONNA Roa scanned F2F into chart and orders done. SW waiting for call back from Ortho to confirm if they are following for IV-Abx and if pt might be ready for d/c tomorrow and confirm the IV-Abx. BF Original Note: DCP Cont: Per MD, pt getting another unit of blood today and not yet medically stable to discharge right now. SW called [facility] and re-faxed referral to review for home IV-Abx, currently Ancef Q8, and they confirmed that currently pt has full coverage of home infusion. If pt is ready for discharge tomorrow then they can figure out bedside teach with pt and spouse in the hospital prior to d/c back to [facility]. [facility] needs RN set up as they do not have good availability for their RN on the [facility]. JACOBO made [facility] referral for RN/PT for PICC management and meds and mobility as they are the only HH agency going to the [facility] and they will review and confirm they can accept. F2F and HH orders completed. JACOBO met bedside with pt and explained role again and updated him on above and pt was very disappointed not to be discharging home today. Plan: SW to follow to confirm Kenny Lazo will be the following doctor for home infusion and confirm [facility] can accept for plan of discharge home. CHANCE Zhong
[2023-11-01 15:18] LABS: Hematocrit 25.8 % (41-53); Hemoglobin 8.8 g/dL (13.5-17.5)
--- NOTE | 2023-11-01 15:41 | P.PN_ITS ---
Subjective Subjective Date Patient Seen: 11/01/23 Time Patient Seen: 15:41 Interval history: Pt sitting on side of bed, comfortable, wants to go home. He is still having difficulty w/ low H/H and required another transfusion of PRBCs this morning. His iron was low, and I started him on oral FeSO4 today. CT of the hip and pelvis done today to r/o bleeding; no signs of active bleeding, hematoma, or discreet fluid collection. His aerobic cultures came back as scant Eleni, and he was changed from Vanco to Ancef yesterday. His anaerobic cultures are still pending. I called this morning and again just now and they said they still have not received specimens for this pt for PCR; per lab, they were given to [facility] on 10/28. Exam Vital Signs (past 8 hours): - 11/01/23 08:00 11/01/23 10:40 11/01/23 11:06 Temperature 97.6 F 97.0 F L 97.1 F L Pulse Rate 86 77 89 Respiratory Rate 17 16 16 Blood Pressure 129/66 122/64 104/63 Pulse Oximetry 98 Oxygen Flow Rate 0 11/01/23 12:00 11/01/23 13:40 11/01/23 14:00 Temperature 97.7 F 97.1 F L 97.0 F L Pulse Rate 88 84 88 Respiratory Rate 16 16 18 Blood Pressure 108/58 L 112/83 112/63 Pulse Oximetry 97 97 Oxygen Flow Rate 0 0 Fraction of Inspired Oxygen 21 SaO2/FiO2 Ratio 466 Oxygen Delivery Method Room Air Oxygen Flow Rate 0 Narrative Exam Narrative: 5/5 strength in hip flexors, quadriceps, hamstrings, DF, PF, EHL on left. Sensation to light touch intact throughout LLE. Calf soft and compressible. KIMBERLY functioning w/ scant bloody drainage. Hemovac w/ 45 mL of recorded serous drainage since midnight. Objective Labs 11/01/23 15:00 10/31/23 05:40 Labs: Laboratory Results - last 24 hr 10/28/23 10/31/23 11/01/23 15:57 19:45 04:40 WBC 9.9 RBC 2.47 L Hgb 9.0 L 7.5 L Hct 26.7 L 22.1 L MCV 89.5 MCH 30.5 MCHC 34.1 RDW 13.8 Plt Count 284 Vancomycin Trough 13.8 Blood Type A Negative A Negative Antibody Screen Negative Negative Crossmatch See Detail See Detail 11/01/23 15:00 WBC RBC Hgb 8.8 L Hct 25.8 L MCV MCH MCHC RDW Plt Count Vancomycin Trough Blood Type Antibody Screen Crossmatch [facility] Medical History SVT (supraventricular tachycardia) BPH (benign prostatic hyperplasia) Psoriatic arthritis Social History household members: spouse Smoking Status: Former smoker alcohol intake: former Assessment & Plan Post-op Assessment and plan (1) Status post hip surgery: Assessment and Plan narrative: 1) S/p I&D of postop hematoma, placement of antibiotic beads, replacement of acetabular liner and femoral head. Primary surgery was 09/29/2023. 2) Continue ASA 81mg BID for VTE prophylaxis. 3) Continue PT, WBAT, posterior hip precautions. 4) Multimodal pain control. 5) Dr Lazo to determine discharge abx orders tomorrow. (2) Acute on chronic anemia: Assessment and Plan narrative: Appreciate hospitalist help with this pt. No signs of active bleeding from hip. Started FeSO4 325mg BID today. Will recheck CBC in AM. Postoperative Procedures: Procedures Operation Date: 10/28/23 14:30 Actual Procedure Side Surgeon p INCISION AND DRAINAGE LEFT HIP WITH ANTIBIOTIC BEADS INSERTION Left Argentina Lazo MD Postoperative day: 4 Quality VTE Deep Vein Thrombosis/Pulmonary Embolism Present on Admission: No
[2023-11-01] MEDS: SERTRALINE 50 MG TABLET 150 MG PO (20:35)
[2023-11-01] MEDS: hydroCHLOROthiazide 25 MG TABLET 6.25 MG PO (21:38)
[2023-11-01] MEDS: lisinopriL 5 MG TABLET PO (21:39)
[2023-11-02] VITALS: BP 119/60; PULSE 82; TEMP 36.1; O2SAT 100
[2023-11-02] MEDS: OXYCODONE IR 5 MG TABLET 10 MG PO ×6 (00:38→21:50)
--- NOTE | 2023-11-02 00:50 | PC.NURSE ---
machinist 2nd shift: Patient reported that his left hemovac drain was leaking, and he may have dislodged it. this RN assessed, hemovac drain appears to be in place however unable to determine how far it has been pulled out. Serosanguinous drainaged noted to be leaking around the drain. Reinforced drain site with ABD pad which became saturated with serosanguinous drainage within 30 minutes. Notified MD Chiu, advised to continue reinforcing with dressings overnight and will reassess in the morning. Dressing reinforced.
[2023-11-02] MEDS: PANTOPRAZOLE DR 20 MG TABLET PO (01:58)
[2023-11-02] MEDS: CEFAZOLIN 2 GM/100 ML PREMIX 100 ML IV ×3 (02:07→17:48)
[2023-11-02 04:33] LABS: Add Manual Diff / Slide Review NO; Basophils Absolute Auto 0 /uL (0-100); Basophils Percent Auto 0.3 % (0-2); Eosinophils Absolute Auto 300 /uL (0-450); Eosinophils Percent Auto 2.8 % (2-4); Hematocrit 24.8 % (41-53); Hemoglobin 8.6 g/dL (13.5-17.5); Lymphocytes Absolute Auto 2300 /uL (1100-4500); Lymphocytes Percent Auto 23.2 % (25-40); Mean Corpuscular HGB Conc 34.5 % (30-36); Mean Corpuscular Hemoglobin 30.4 PG (26-34); Mean Corpuscular Volume 88.1 fL (80-100); Monocytes Absolute Auto 700 /uL (0-900); Monocytes Percent Auto 6.7 % (3-14); Neutrophils Absolute Auto 6500 /uL (1500-7000); Platelet Count 294 X10^3/uL (150-400); Red Blood Cell Count 2.82 X10^6/uL (4.5-5.9); Red Cell Distribution Width 14.6 % (11.6-14.8); White Blood Cell Count 9.8 X10^3/uL (4.5-11.0)
[2023-11-02 06:00] VITALS: PULSE 76; RESP 20; TEMP 36.2; O2SAT 100
[2023-11-02 07:50] VITALS: BP 131/74; PULSE 77; RESP 18; TEMP 36.2; O2SAT 99
[2023-11-02] MEDS: FERROUS SULFATE 325 MG TABLET PO ×2 (08:26→17:47)
--- NOTE | 2023-11-02 10:55 | PT.IPTN ---
Current Diagnoses Anemia, unspecified (10/28/23) Morbid (severe) obesity due to excess calories (10/28/23) Cannabis dependence, uncomplicated (10/28/23) Other intraoperative and postprocedural complications and disorders of the musculoskeletal system (10/28/23) Chronic kidney disease, unspecified (10/28/23) Unspecified complication of procedure, initial encounter (10/28/23) Presence of left artificial hip joint (10/28/23) Other specified postprocedural states (10/28/23) Surgery Performed Operation Date: 10/28/23 14:30 Actual Procedures p INCISION AND DRAINAGE LEFT HIP WITH ANTIBIOTIC BEADS INSERTION(Left) - Argentina Lazo MD Physical Therapy Treatment Note M2 PT-IP Current Condition Start: 10/29/23 12:36 Freq: NEEDED Status: Active Protocol: Document 10/29/23 10:30 AB (Rec: 10/29/23 13:09 AB [id number]) Physical Therapy Current Condition Current Condition Evaluation Date 10/29/23 Treatment Diagnosis L hip infection s/p I&D; difficulty in walking Onset Date 10/28/23 M3 PT-IP Subjective Start: 10/29/23 12:36 Freq: NEEDED Status: Active Protocol: Document 11/02/23 10:55 AB (Rec: 11/02/23 13:41 AB [id number]) Subjective Physical Therapy Visit Type Type Treatment Note Visit Start Time 10:55 Visit Stop Time 11:15 Number of YARD PIPE GRADER Visits 0 Physical Therapy Visit Comments Patient Comments agreeable to do PT M4 PT-IP Mobility and Gait Start: 10/29/23 12:36 Freq: NEEDED Status: Active Protocol: Document 11/02/23 10:55 AB (Rec: 11/02/23 13:41 AB [id number]) PT-Transfer Assessment Sit to and From Stand Sit to and from Stand Standby Assistance,1 Person Assistance,Use of Upper Extremities Equipment Transfer Assistive Device Gait Belt,Front Wheeled Walker Orthotic/Prosthetic Devices or Brace: No Transfers Transfer Destination Chair Transfer Technique ambulated Transfer Ability Level of Assist Standby Assistance Comments Mobility Comments pt sitting on EOB and agreed to do PT. completed sit to stand SBA using fWW. able to recall precautions. pt ambulated in room using FWW SBA ~ 40 ft. pt sat back on EOB. agreed to do stairs. educated pt on stair climbing. positioned platform step. pt ambulated towards the platform step using FWW SBA and completed up/down step using FWW SBA to CGA. repeated x 2 sets. pt ambulated back to his room using fWW SBA and sat back on EOB. pt will have his spouse to assist him at home. caregiver training was conducted when pt had his hip down ~ 1 month ago and pt stated that spouse knows how to assist him. pt only requiring SBA for mobility at this time for safety and no further PT indicated at this time. pt will sleep on his recliner at home and does not want to do bed mobility on a regular bed due to fear of incision being open. informed pt that PT will d/c and agreed. informed pt to walk with nursing staff and agreed. Gait Assessment Gait Gait Assistance Required: Standby Assistance Distance (Feet) 40 Able to Maintain Weight Bearing Status Yes During Gait Assistive Devices Assistive Device Gait Belt,Front Wheeled Walker Orthotic/Prosthetic Devices or Brace: No Factors Limiting Gait Function Factors Limiting Gait Function Decreased Activity Tolerance, Decreased Strength,Limited Range of Motion,Pain,Poor Balance Stair Climbing Assessment Evaluation Level of Assist On Stairs Standby Assistance,Contact Guard Assistance Devices Stair Climbing Assistive Devices Front Wheel Walker Technique/Endurance Stair Climbing Direction Ascend and Descend Stair Climbing Technique Step to Step Number of Steps Climbed 1 Stair Climbing Set # Repetitions (reps) 2 M5 PT-IP Objective Assessments Start: 10/29/23 12:36 Freq: NEEDED Status: Active Protocol: Document 10/29/23 10:30 AB (Rec: 10/29/23 13:09 AB [id number]) Orientation Orientation/Cognition Level of Alertness Alert Orientation Name,Place,Situation Safety Awareness Decreased Safety Awareness Memory Description No Deficits Noted Gross Range of Motion Lower Extremity ROM Assessment Within Functional Limits Strength Lower Extremity Strength Assessment Left Impaired Hip 3-/5 Knee 3+/5 Muscle Tone Muscle Tone WNL Yes M6 PT-IP Treatment Start: 10/29/23 12:36 Freq: NEEDED Status: Active Protocol: Document 11/02/23 10:55 AB (Rec: 11/02/23 13:41 AB [id number]) Physical Therapy Treatment Education Education Provided Precautions,Weight Bearing Status,Safety M7 PT-IP Assessment and Plan Start: 08/02/24 12:36 Freq: NEEDED Status: Active Protocol: Document 11/02/23 10:55 AB (Rec: 11/02/23 13:41 AB [id number]) PT Summary Assessment and Plan Potential Rehabilitation Potential Fair Summary Impairments Pain,ROM,Strength,Balance, Coordination,Sensation,Tone, Cognition,Bed Mobility, Transfers,Gait,Activity Tolerance Progress Towards Goals Safe For Discharge Assessment Summary pt requiring SBA with mobility using fWW. pt needing SBA for safety and plans to go home with spouse to assist him. spouse knows how to assist pt . no further PT interventions indicated at this time. pt to continue mobilizing and ambulating with nursing staff using FWW. Frequency of Treatment Frequency Of Treatment Discharge Treatment Plan Physical Therapy Treatment Plan Bed Mobility Training,Transfer Training,Gait Training, Therapeutic Exercise,Balance Retraining,Post Op Education, Discharge Planning,Hot or Cold Pack,Neuromuscular Re-ed, Coordination Retraining,Manual Therapy Precautions Posterior Hip Precautions No Hip Flexion > 90 degrees,No Hip Internal Rotation,No Hip Adduction Weight Bearing Status Weight Bearing Status Weight Bear as Tolerated Allowed Weight Bearing Amount (enter % LLE WBAT or #) (%) Recommendations To Nursing Amount of Assist Needed 1 Person Assist Discharge Recommendations PT Discharge Recommendations Home with 19/10 Assist Available,Home Health Transportation Needs at Discharge Private Vehicle,Wheelchair/ Cabulance
--- NOTE | 2023-11-02 11:20 | P.PN_ITS ---
Subjective Subjective Date Patient Seen: 11/02/23 Time Patient Seen: 08:00 Interval history: Hip pain is mild. Denies fever chills. No nausea or vomiting. Denies any shortness of breath or chest pain. Patient has been out of bed and ambulating. Exam Vital Signs (past 8 hours): - 11/02/23 06:00 11/02/23 07:50 Temperature 97.1 F L 97.2 F L Pulse Rate 76 77 Respiratory Rate 20 18 Blood Pressure 131/74 Pulse Oximetry 100 99 Oxygen Flow Rate 0 Fraction of Inspired Oxygen 21 SaO2/FiO2 Ratio 466 Oxygen Delivery Method Room Air Oxygen Flow Rate 0 Narrative Exam Narrative: 58-year-old male resting comfortably in bed in no apparent distress. Dressing is clean and dry. Hemovac in place. Motor functions intact bilateral lower extremities. Sensation grossly intact to light touch bilateral lower extremities. Const General: cooperative and comfortable Nutritional Appearance: obese (BMI 38.8) Orientation: alert Resp Effort & Inspection: normal respiratory effort and able to speak in complete sentences Objective Imaging CT scan - pelvis: Radiologist's impression: IMPRESSION: 1. Postsurgical changes from left total hip arthroplasty and antibiotic treatment not significantly changed from previous study. Possible postsurgical seroma surrounding left proximal femur and left greater trochanter . Left-sided surgical drain in place. No evidence of active bleeding. No large intramuscular hematoma. No soft tissue mass or other drainable fluid collection. 2. No acute fracture or dislocation. No suspicious intraosseous lesion. Surgical hardware positions unchanged from earlier study. Labs 11/02/23 04:20 10/31/23 05:40 Labs: Laboratory Results - last 24 hr 11/01/23 11/02/23 15:00 04:20 WBC 9.8 RBC 2.82 L Hgb 8.8 L 8.6 L Hct 25.8 L 24.8 L MCV 88.1 MCH 30.4 MCHC 34.5 RDW 14.6 Plt Count 294 Neut % (Auto) 67.0 Lymph % (Auto) 23.2 L [place] % (Auto) 6.7 Eos % (Auto) 2.8 Baso % (Auto) 0.3 Neut # (Auto) 6500 Lymph # (Auto) 2300 [place] # (Auto) 700 Eos # (Auto) 300 Baso # (Auto) 0 PFSH Medical History SVT (supraventricular tachycardia) BPH (benign prostatic hyperplasia) Psoriatic arthritis Social History household members: spouse Smoking Status: Former smoker alcohol intake: former Assessment & Plan Post-op Postoperative Procedures: Procedures Operation Date: 10/28/23 14:30 Actual Procedure Side Surgeon p INCISION AND DRAINAGE LEFT HIP WITH ANTIBIOTIC BEADS INSERTION Left Argentina Lazo MD Postoperative day: 5 Postoperative status: doing well Postoperative status narrative: Stable Postoperative plan narrative: Patient received 1 unit of packed red blood cells yesterday. H and H is stabilizing. Repeat H&H tomorrow. Multimodal pain management Outpatient antibiotics still to be determined Continue to mobilize with physical therapy, posterior hip precautions Disposition, likely discharge home tomorrow if H and H continues to be stable. Quality VTE Deep Vein Thrombosis/Pulmonary Embolism Present on Admission: No
--- NOTE | 2023-11-02 11:26 | OT.IP.TRT ---
Current Diagnoses Anemia, unspecified (10/28/23) Morbid (severe) obesity due to excess calories (10/28/23) Cannabis dependence, uncomplicated (10/28/23) Other intraoperative and postprocedural complications and disorders of the musculoskeletal system (10/28/23) Chronic kidney disease, unspecified (10/28/23) Unspecified complication of procedure, initial encounter (10/28/23) Presence of left artificial hip joint (10/28/23) Other specified postprocedural states (10/28/23) Surgery Performed Operation Date: 10/28/23 14:30 Actual Procedures p INCISION AND DRAINAGE LEFT HIP WITH ANTIBIOTIC BEADS INSERTION(Left) - Argentina Lazo MD Occupational Therapy Treatment Note M2 OT-IP Current Condition Start: 10/29/23 09:35 Freq: Status: Active Protocol: Document 10/29/23 09:37 MARIE (Rec: 10/29/23 10:00 MARIE [id number]) Occupational Therapy Current Condition Current Condition Evaluation Date 10/29/23 Treatment Diagnosis L JOVAN irrigation and debridement Diagnosis Onset Date 10/28/23 Post Operative Precautions Posterior Hip Precautions No Hip Flexion > 90 degrees,No Hip Internal Rotation,No Hip Adduction Weight Bearing Status Weight Bearing Status Weight Bear as Tolerated M3 OT- IP Subjective and Pain Start: 10/29/23 09:35 Freq: Status: Active Protocol: Document 11/02/23 14:10 CGR (Rec: 11/02/23 14:13 CGR [id number]) OT- Subjective Occupational Therapy Visit Type Type Treatment Note Visit Start Time 11:18 Visit Stop Time 11:26 Notes Pt sitting EOB when OT entered . M4 OT- IP ADL's Start: 10/29/23 09:35 Freq: Status: Active Protocol: Document 11/02/23 14:10 CGR (Rec: 11/02/23 14:13 CGR [id number]) OT [id number] Comments OT Self-Feeding Comments not meal time OT ADL-Grooming Comments OT Grooming Comments pt declined OT ADL-Oral Care Comments Oral Care Comments Pt declined OT ADL-Dressing Comments OT Dressing Comments Pt declilned OT ADL-Toileting Comments OT Toileting Comments PT declined need OT ADL-Bathing Comments OT Bathing Comments not performed M5 OT- IP IADL's Start: 10/29/23 09:35 Freq: Status: Active Protocol: Document 10/29/23 09:37 [email or web address] (Rec: 10/29/23 10:00 MARIE [id number]) OT-Instrumental Activities of Daily Living Home Safety Awareness Awareness of Need for Assistance at Home Good Awareness Ability to Problem Solve Emergency Able to Problem Solve Situations Medication Management Medication Management No Deficits Identified Money Management Money Management No Deficits Identified Meal Preparation Meal Preparation Caregiver Provides Assist Administrative Hearing Officer Administrative Hearing Officer Caregiver Provides Assist Driving Driving Caregiver Provides Assist M6 OT- IP Functional Cognition Start: 10/29/23 09:35 Freq: Status: Active Protocol: Document 10/29/23 09:37 MARIE (Rec: 10/29/23 10:00 MARIE [id number]) Cognitive Factors Limiting Selfcare Function Cognitive Ability Level of Alertness Alert Patient Orientation Name,Age,Birthday,Month,Date, Year,Day of Week,Place, Situation Attention Span Ability Capable of Focused Attention, Capable of Sustained Attention Ability to Follow Commands Able to Follow Multi-Step Commands Memory Description No Deficits Noted Safety Awareness No Deficits Noted Problem Solving Ability No deficits Noted Executive Function Ability No Deficits Noted Abstract Thinking Ability No Deficits Noted OT- Vision and Hearing OT- Hearing Assessment OT- Hearing Assessment WFL OT- Vision Assessment Visual Acuity WFL M7 OT- IP Mobility and Balance Start: 10/29/23 09:35 Freq: Status: Active Protocol: Document 11/01/23 13:48 CGR (Rec: 11/01/23 13:54 CGR [id number]) OT-Transfer Assessment Sit to and From Stand Sit to and from Stand Standby Assistance Transfers Transfer Ability Standby Assistance Technique Transfer Destination Bed,Chair,Toilet Transfer Technique Stand Step Pivot Devices Transfer Assistive Devices Gait Belt,Front Wheeled Walker Comments Mobility Comments pt sitting on bench at window when OT entered. Pt ambulated into the bathroom for urination then up to sink for simple ADLs. Pt requested to sit EOB at end of session. OT- Gait Assessment Gait Gait Assistance Required: Standby Assistance Assistive Devices Assistive Device Gait Belt,Front Wheeled Walker OT- Balance Assessment Sitting Balance and Reactions Static Sitting Balance Ability Good Dynamic Sitting Balance Ability Good M8 OT- IP Objective Assessments Start: 10/29/23 09:35 Freq: Status: Active Protocol: Document 10/29/23 09:37 [id number] (Rec: 10/29/23 10:00 [facility] [id number]) OT Gross Range of Motion Upper Extremity Range of Motion Assessment Within Functional Limits OT Strength Upper Extremity Strength Assessment Within Functional Limits Hand Infantry Weapons Crewmember Strength Hand Dominance Right OT- Coordination Assessment Upper Extremity Finger to Nose Test Within Functional Limits M9 OT- IP Assessment and Plan Start: 10/29/23 09:35 Freq: Status: Active Protocol: Document 11/02/23 14:10 CGR (Rec: 11/02/23 14:13 CGR [id number]) OT Summary Assessment and Plan Potential Rehabilitation Potential Excellent Analytic Complexity at Evaluation Low Summary OT Impairments Pain,Balance,Functional Mobility,Dressing,Toileting, Bathing,Toilet Transfers Progress Towards Goals Progressing Toward Goals Assessment Summary Pt is 58 yo M who underwent L JOVAN on 09/29/23 and was d/c home on 09/30/23. Pt underweant irrigation and debridement of L JOVAN on 10/28/23. Pt lives with his spouse and son is able to assists prn. Pt is able to state 2/3 hip precautions. OT reviewed hip precautions and pt verbalized remembering them. Pt has tool marker and sock aid at home, but has not been using them. Pt's spouse has been assisting with LB BADL needs. Pt indicated in last session that getting in and out of bed is difficult. On this date, this sba underwriter brought a leg consumer loan processor for pt to try. Pt declined to attempted bed mobility but did use the leg consumer loan processor to perform leg movements and agrees that it might be beneficial for home use. Pt educated on home safety and left sitting up EOB as he was when Ot entered. Goals Dressing Goal Standby Assistance,Inner Tube Cutter, Sock Aid Toileting Goal Independent Bathing Goal Standby Assistance Toilet Transfer Goal Independent Shower Transfer Goal Minimal Assistance,Tub Transfer Bench,Grab Bars Days to Meet Goals 5 Frequency of Treatment Frequency Of Treatment Once a Day Treatment Plan OT Treatment Plan ADL Training,Functional Mobility,Therapeutic Exercises ,Patient/Family Education Other Treatment Recommendations and Next hip precaution education, AE Treatment Focus education for LB ADL Discharge Recommendations OT Discharge Recommendations Home with Assistance, Outpatient PT Home Equipment Needs extended tub bench, long handled sponge Transportation Needs at Discharge Private Vehicle
--- NOTE | 2023-11-02 11:37 | CM.DPC ---
Addendum entered by CHANCE Zhong 11/02/23 14:03: ADD: SW met bedside with pt and spouse and discussed plan of likely discharge home tomorrow if stable and provided [facility] brochure for HH RN/PT and they are very appreciative and agreeable and spouse will take the morning ferry from [employer] and be bedside around 1000 so she will be present for [facility] bedside teach around 1500 unless they get an earlier opening. Pt already has a priority boarding pass for the next couple months. SW to update [facility] in the AM to confirm discharge home so they can do bedside teach. BF Original Note: DCP Cont: Per Kenny PA, plan is to monitor pt's H&H today and Dr. Lazo to call Dr. Anju DAVILA MD to confirm discharge IV-Abx for plan of likely discharge tomorrow Wed 11/02. SW faxed pt's clinicals/referral to Odalis DAVILA to fax [phone] to review and called and left msg to confirm if Dr. Rene to follow etc... JACOBO spoke to Swathi at [facility] and updated on now discharge tomorrow 11/02 and they confirm they spoke to Dr. Rene and received the orders for [facility] for pt to discharge on and Dr. Rene confirms she will be the following MD and [facility] just needs discharge summary at discharge. [facility] can have their RN do bedside teach tomorrow prior to discharge once confirmation in the AM that pt will be discharging. JACOBO updated RN who kindly will let pt know plan for discharge tomorrow and SW will meet bedside with pt later today to answer any questions and request spouse be bedside tomorrow for teach and transport home. CHANCE Zhong
[2023-11-02 13:50] VITALS: BP 138/56; PULSE 75; RESP 16; TEMP 36.4; O2SAT 100
[2023-11-02 20:00] VITALS: BP 107/81; PULSE 79; RESP 19; O2SAT 79
[2023-11-02] MEDS: hydroCHLOROthiazide 25 MG TABLET 6.25 MG PO (20:37)
[2023-11-02 20:38] VITALS: BP 107/81; PULSE 78
[2023-11-02] MEDS: SERTRALINE 50 MG TABLET 150 MG PO (20:38)
[2023-11-03] VITALS: BP 128/62; PULSE 83; RESP 19; TEMP 36.7; O2SAT 100
[2023-11-03] MEDS: OXYCODONE IR 5 MG TABLET 10 MG PO ×4 (01:55→13:43)
[2023-11-03] MEDS: CEFAZOLIN 2 GM/100 ML PREMIX 100 ML IV ×2 (02:14→09:43)
[2023-11-03 04:25] LABS: Hematocrit 27.1 % (41-53); Hemoglobin 9.2 g/dL (13.5-17.5)
[2023-11-03] MEDS: ACETAMINOPHEN 325 MG TABLET 650 MG PO (05:41)
[2023-11-03] MEDS: PANTOPRAZOLE DR 20 MG TABLET PO (05:41)
[2023-11-03 06:00] VITALS: BP 117/70; PULSE 65; RESP 19; TEMP 36; O2SAT 65
[2023-11-03 08:00] VITALS: BP 116/62; PULSE 78; RESP 14; TEMP 36.1; O2SAT 100
[2023-11-03] MEDS: FERROUS SULFATE 325 MG TABLET PO (08:52)
--- NOTE | 2023-11-03 11:06 | DIET.CONS ---
Dietary Consultation Note Admission Date: 10/28/2023 15:06 Assessment: 58 y M admitted for left hip infection. Nutrition screened for LOS. Met w/ pt at bedside. Pt is sleepy/fatigued, limited interview. Reports decrease in intakes for last 7-8 months with weight loss and muscle loss. Per EMR review of [facility], pt went through weight loss program pre-op to prepare for surgery. Per review of GI consult on 09/20/23- pt intended to lose weight, but lost more weight than expected and experienced abd pain, N/V that was associated with sulfasalazine. Med was d/c. GI ordered EGD and colonoscopy. Pt unable to provide diet recall at this time. Tolerates ONS. Pt expressed interest in outpatient nutrition services. Nutrition focused physical exam performed: No muscle wasting. Areas assessed: confucianism (limited exam of left side, face turned into pillow), clavicle region, interosseous Mild subcutaneous fat loss buccal fat pads. Areas assessed: orbital, tricep Ht: 187.96 cm Wt: 137 kg BMI: 38.7 UBW: 11/19/22: 174.179 kg (-21% weight loss in 1 yr, severe) 06/01/23: 156.489 kg (-12.5% weight loss in 6 months, severe) Last BM: 11/01/23 (11/01/23 11:45) MNA: 12 Luis Score: 22 Diet: 10/29/23 Dinner General (Regular) Diet Diet Modifications: Food Texture: Level 7 - Regular Liquid Consistency: Level 0 - Thin Nutrition Percent Meal Consumed 25% 11/02/23 18:08 Percent Meal Consumed 10 11/02/23 12:17 Percent Meal Consumed 0% 11/01/23 12:00 Labs: RBC 2.82 X10^6/uL (4.5-5.9) L 11/02/23 04:20 Hgb 9.2 g/dL (13.5-17.5) L 11/03/23 04:16 Hct 27.1 % (41-53) L 11/03/23 04:16 Creatinine 1.31 mg/dL (0.66-1.25) H 10/31/23 05:40 Iron 36 ug/dL (49-181) L 10/31/23 08:25 % Saturation 17 % (20-50) L 10/31/23 08:25 Nutrition Diagnosis: Unintentional weight loss r/t abd pain, N/V aeb 12.5% weight loss in 5 months, severe Inadequate oral intake r/t decreased appetite aeb <50% recorded po intakes for 5 days Interventions: 1. Ensure BID 2. Small freq protein based meals/snacks, reviewed protein sources, encouraged sufficient intakes 3. Coordinated for outpatient visit Monitoring/Evaluations: po intakes Electronically Signed by: Jacklyn Bolivar 11/03/23 11:06 Clinical Dietitian [address] [address]
--- NOTE | 2023-11-03 12:04 | PM.DS.1 ---
History of Present Illness History of Present Illness Date Patient Seen: 11/03/23 Time Patient Seen: 08:30 Chief complaint: L Hip Infection Narrative: Patient's pain this morning is mild. No fever or chills. No nausea or vomiting. Discharge Providers Provider Date of admission: 10/28/23 15:06 Discharge Date: 11/03/23 Primary care physician: Jailene Addison MD Consults: 10/28/23 15:06 Consult to Anesthesiology Routine Comment: Consulting Provider: Anesthesiologist Reason for consultation: Regional block for post operative pain control 10/28/23 20:49 Consult After Hours PICC Line RN Routine Comment: Consult to Discharge Planning Routine Comment: Consult to Occupational Therapy Evaluate & Treat Comment: Physician Instructions: Evaluate and treat Consult to Physical Therapy Evaluate & Treat Comment: Physician Instructions: post op JOVAN protocol 11/01/23 09:16 Consult to Home Health Routine Comment: I&D of LTHA, PICC, remote computer terminal operator IV-abx Reason For Exam: Set up RN/PT for discharge to home Discharge provider: Andrew Mejia PA-C Summary Hospital Course Discharge Diagnosis: Left hip hematoma and probable periprosthetic infection total hip arthroplasty Postoperative anemia acute on chronic Hospital Course: Left total hip arthroplasty irrigation and debridement, revision of 1 component with irrigation and debridement and polyethylene exchange and implantation of Stimulan antibiotic bead Same procedure as scheduled: Yes Indications: This is a 58-year-old gentleman was less than a month after a left total hip arthroplasty. He had some minor trauma postoperatively and developed some drainage. He went on to have issues with drainage and was seen in the office he was felt to have a hematoma but there was concern for periprosthetic joint infection and he is brought to the operation room for irrigation and debridement possible revision of 1 component as needed. Serious nature of the procedure options risks benefits and complications discussed in detail. We do not have a definitive bacteria but his clinical exam was highly suspicious for periprosthetic infection and it was felt important to proceed with irrigation and debridement and attempted salvage of his prosthesis. Surgeon: Argentina Lazo Rn Medical Inpatient Services: Andrew Mejia Anesthesia Type: General Operative Notes Findings: Active wound drainage with a tract that tracked down through the fascia towards the prosthesis, granulation type tissue no gross pus but some hematoma and fibrinous tissue Closure Type: primary Specimen(s): other (Multiple cultures x3 with Gram stain culture and sensitivity and PCR) Prosthetic devices, grafts, tissues, transplants, or devices: Lazo and nephew size 62 +4 lateralized 40 mm liner and a 40 mm Oxinium head with a +4, Stimulan beads with tobramycin and vancomycin Applied: drain(s) Estimated Blood Loss (mL): 400 Blood products transfused: none Patient admitted to the hospital for the above-mentioned procedure. Patient consented to the same. Patient underwent left total hip arthroplasty irrigation debridement with revision of 1 component irrigation debridement polyethylene exchange and implantation of Stimulan antibiotic beads October 28, 2023. Patient is back in his room recovering well as in stable condition. Patient had acute on chronic anemia due to blood loss during surgery. Patient required 6 units of packed red blood cells to stabilize H&H. Wound cultures from surgery grew Staphylococcus aureus. Patient has been on cefazolin Q 8 hours while in the hospital and will be discharged on the same. Patient will follow up with Dr. Rene at [facility]. Follow up with Dr. Lazo in 1 week. The entire new kimberly dressing is replaced today. Kimberly dressing instructions reviewed. Exam Vital Signs (past 8 hours): - 11/03/23 06:00 11/03/23 08:00 Temperature 96.8 F L 96.9 F L Pulse Rate 65 78 Respiratory Rate 19 14 Blood Pressure 117/70 116/62 Pulse Oximetry 65 L 100 Fraction of Inspired Oxygen 21 SaO2/FiO2 Ratio 466 Oxygen Delivery Method Room Air Oxygen Flow Rate 0 Narrative Exam Narrative: 58-year-old male standing at bedside no apparent distress. Scant drainage on the dressing. Kimberly dressing is otherwise on and functioning. Neurovascular status is intact bilateral lower extremities. Const General: cooperative and comfortable Nutritional Appearance: obese (BMI 38.8) Objective Labs 11/03/23 04:16 10/31/23 05:40 Labs: Laboratory Results - last 24 hr 11/03/23 04:16 Hgb 9.2 L Hct 27.1 L PFSH Medical History SVT (supraventricular tachycardia) BPH (benign prostatic hyperplasia) Psoriatic arthritis Social History household members: spouse Smoking Status: Former smoker alcohol intake: former Discharge Assessment & Plan Assessment and Plan Assessment: Acute on chronic anemia due to blood loss during surgery. Patient transfused 6 units of packed red blood cells during his hospital stay. Patient has stabilized and will be discharged home today. Plan of Treatment: Follow up with Dr. Stacie MATHEWS in 1-2 weeks. Follow up with Dr. Lazo in 1 week as scheduled Multimodal pain management Aspirin 81 mg b.i.d. Weightbearing as tolerated, posterior hip precautions Cefazolin 2 g Q 8 hours Discharge home today in stable condition Discharge Plan Discharge orders & Medications Discharge Orders: Discharge (Order); Ordered 11/03/23 Ordered By: Andrew Mejia Prescriptions: New acetaminophen 325 mg Tablet 650 mg PO Q6H PRN (Reason: Fever/Mild Pain (1-3)) Qty: 60 0RF ferrous sulfate 325 mg (65 mg iron) Tablet 325 mg PO BIDWM Qty: 30 2RF polyethylene glycol 3350 17 gram Powder In Packet 17 gm PO DAILY PRN (Reason: Constipation) Qty: 20 0RF oxycodone 5 mg Tablet 10 mg PO Q4HR PRN (Reason: Pain, Moderate (4-6)) Qty: 40 0RF cefazolin 2 gram recon soln 500 mg IV Q8H 21 Days cefazolin 2 gram recon soln 500 mg IV Q8H 21 Days Continued naloxone 4 mg/actuation spray,non-aerosol 1 spray intranasal Q2-3M Qty: 2 5RF Rx Instructions: spray 1 dose into ONE nostril AND call 911; alternate nostrils w each dose until help arrives sertraline 100 mg tablet 150 mg PO BEDTIME lisinopril-hydrochlorothiazide 10-12.5 mg tablet 0.5 tab PO BEDTIME Discontinued oxycodone 5 mg tablet 10 mg PO BID MDD 40 mg PRN (Reason: pain, moderate) Qty: 60 0RF Rx Instructions: maximum of 4 tablets per day cephalexin 500 mg capsule 500 mg PO 4XD aspirin [Aspir-81] 81 mg Tablet,Delayed Release (Dr/Ec) 81 mg PO DAILY acetaminophen [Tylenol] 325 mg Capsule 650 mg PO Q4H PRN (Reason: Pain (Scale Score 1-3)) Follow up/Referrals: Aydee Rene MD [Non-Staff] - (1-2 weeks) Jailene Addison MD [Primary Care Provider] - Argentina Lazo MD [Physician] - 11/10/23 10:00 am (Follow up at [facility] office in [place].) Diet/Activity/Treatments Diet: Diet as Tolerated Activity: Weightbearing as tolerated to left leg. Posterior hip precautions. Cold/Heat Therapy: Ice to hip as needed for pain. Skin/Wound/Dressing Care Report to your healthcare provider any signs of infection, such as:: chills, fever, night sweats, unusual drainage and unusual redness Dressing: May shower. Leave KIMBERLY dressing in place until follow up in office. Once batteries , may cut off battery pack and dispose of it. No bathing or otherwise soaking incision. Call the office if the dressing becomes saturated inside. Visit Report/Discharge Packet Instructions: DI for Prescription Opioid Use, DI for Incision and Drainage of a Joint Stand Alone Forms: Patient Portal/API, Stroke Signs & Symptoms, Surgery Discharge Discharge Data Primary Care Provider: Jailene Addison VTE Deep Vein Thrombosis/Pulmonary Embolism Present on Admission: No
--- NOTE | 2023-11-03 14:51 | CM.DPNOTE ---
DC Note Patient has been discharged home today with ongoing IV Cefazolin 2 g Q 8 hours. Spoke with César at [facility] who reports he has everything he needs and bedside teach is scheduled for 2pm. Patient/spouse remain agreeable to plan, patient eager to return home. Received call from Shannan Farr MA at Dr Rene's office P [phone] who requests the date patient will follow up with Dr Lazo; which is 11/09 per Ortho SHERI Mejia. Time unknown. Shannan plans to call patient at home to discuss IV abx course and schedule an in-person appt, hopefully same day as patient's ortho follow up appointment. Plan: Discharge home w/spouse, [facility] for ongoing IV Cefazolin, ongoing IV orders through Dr Quinones and close outpatient follow up. SANTI
== END 2023-11-03 14:48 | disposition home or self-care (01) | DRG 463 ==
PROVIDERS: Hospitalist; Internal Medicine; Nurse Anesthetist, Certified Registered; Physician Assistant; Physician Assistant Medical; Admitting Provider Orthopaedic Surgery; PCP Family Medicine; Referring Provider Orthopaedic Surgery; Visit Provider Orthopaedic Surgery
PROC: 0J9C3ZZ Drainage of Pelvic Region Subcutaneous Tissue and Fascia, Percutaneous Approach (ICD-10-PCS; CPT 10180; principal; 2023-10-28 14:30)
DX: T84.52XA Infection and inflammatory reaction due to internal left hip prosthesis, initial encounter (principal); R57.1 Hypovolemic shock; D62 Acute posthemorrhagic anemia; M96.840 Postprocedural hematoma of a musculoskeletal structure following a musculoskeletal system procedure; I96 Gangrene, not elsewhere classified; M96.810 Intraoperative hemorrhage and hematoma of a musculoskeletal structure complicating a musculoskeletal system procedure; E66.01 Morbid (severe) obesity due to excess calories; F12.90 Cannabis use, unspecified, uncomplicated; B95.61 Methicillin susceptible Staphylococcus aureus infection as the cause of diseases classified elsewhere; Z68.38 Body mass index [BMI] 38.0-38.9, adult; Z87.891 Personal history of nicotine dependence
CPT/HCPCS: 36415; 36430; 36592; 72193; 73700; 80048; 80053; 80202; 82607; 82746; 83540; 83550; 85014; 85018; 85025; 85027; 85045; 85651; 86140; 86850; 86900; 86901; 87070; 87075; 87077; 87147; 87176; 87186; 87205; 87801; 97116; 97162; 97165; 97530; 97535; C1776; G0378; P9016; C9290; G0379; J0136; J0171; J0330; J0690; J1100; J1170; J1642; J2060; J2405; J2470; J2543; J2704; Q9967

== ENCOUNTER → 2023-11-22 12:23 | Outpatient (CLI) | payer OTHER, SELFPAY ==
[2023-11-18 14:07] VITALS: BMI 38.7
[2023-11-22 19:00] LABS: Add Manual Diff / Slide Review NO; Basophils Absolute Auto 100 /uL (0-100); Basophils Percent Auto 1.2 % (0-2); Eosinophils Absolute Auto 200 /uL (0-450); Hematocrit 31.2 % (41-53); Hemoglobin 10.4 g/dL (13.5-17.5); Lymphocytes Absolute Auto 1600 /uL (1100-4500); Lymphocytes Percent Auto 24.8 % (25-40); Mean Corpuscular HGB Conc 33.3 % (30-36); Mean Corpuscular Hemoglobin 29.3 PG (26-34); Monocytes Absolute Auto 400 /uL (0-900); Monocytes Percent Auto 6.6 % (3-14); Neutrophils Absolute Auto 4100 /uL (1500-7000); Neutrophils Percent Auto 64.4 % (50-75); Platelet Count 261 X10^3/uL (150-400); Red Blood Cell Count 3.55 X10^6/uL (4.5-5.9); Red Cell Distribution Width 13.7 % (11.6-14.8); White Blood Cell Count 6.4 X10^3/uL (4.5-11.0)
[2023-11-22 19:27] LABS: Alanine Aminotransferase 10 IU/L (<50); Albumin 3.8 g/dL (3.5-5.0); Albumin Globulin Ratio 1.1 (1.0-2.8); Alkaline Phosphatase 121 U/L (38-126); Aspartate Aminotransferase 25 IU/L (17-59); BUN Creatinine Ratio 19.4 (6-22); Bilirubin Total 0.3 mg/dL (0.2-1.3); Blood Urea Nitrogen 20 mg/dL (9-20); C-Reactive Protein Quant 2.2 mg/dL (<1.0); Carbon Dioxide 27 mmol/L (22-32); Chloride 102 mmol/L (98-107); Estimated Glomerular Filt Rate > 60 mL/min (>60); Globulin 3.6 g/dL (1.7-4.1); Glucose 95 mg/dL (70-100); HEMOLYSIS < 15 (0-50); Potassium 5.1 mmol/L (3.4-5.1); Sodium 137 mmol/L (137-145); Total Protein 7.4 g/dL (6.3-8.2)
== END ==
PROVIDERS: Internal Medicine Infectious Disease; PCP Family Medicine
DX: T84.52XA Infection and inflammatory reaction due to internal left hip prosthesis, initial encounter (principal)
CPT/HCPCS: 80053; 85025; 86140

== ENCOUNTER → 2023-11-30 13:37 | Outpatient (CLI) | payer OTHER, SELFPAY ==
[2023-11-26 11:39] VITALS: BMI 38.7
[2023-11-30 20:26] LABS: Add Manual Diff / Slide Review NO; Basophils Absolute Auto 100 /uL (0-100); Basophils Percent Auto 0.8 % (0-2); Eosinophils Absolute Auto 100 /uL (0-450); Eosinophils Percent Auto 1.4 % (2-4); Hematocrit 33.4 % (41-53); Hemoglobin 11.2 g/dL (13.5-17.5); Lymphocytes Absolute Auto 1500 /uL (1100-4500); Lymphocytes Percent Auto 22.2 % (25-40); Mean Corpuscular HGB Conc 33.5 % (30-36); Mean Corpuscular Hemoglobin 29.2 PG (26-34); Mean Corpuscular Volume 87.2 fL (80-100); Monocytes Absolute Auto 300 /uL (0-900); Monocytes Percent Auto 3.9 % (3-14); Neutrophils Absolute Auto 5000 /uL (1500-7000); Neutrophils Percent Auto 71.7 % (50-75); Platelet Count 255 X10^3/uL (150-400); Red Blood Cell Count 3.83 X10^6/uL (4.5-5.9); Red Cell Distribution Width 13.7 % (11.6-14.8)
[2023-11-30 20:36] LABS: Alanine Aminotransferase 9 IU/L (<50); Albumin Globulin Ratio 1.1 (1.0-2.8); Alkaline Phosphatase 121 U/L (38-126); Aspartate Aminotransferase 23 IU/L (17-59); BUN Creatinine Ratio 19.6 (6-22); Bilirubin Total 0.5 mg/dL (0.2-1.3); Blood Urea Nitrogen 22 mg/dL (9-20); C-Reactive Protein Quant 2.2 mg/dL (<1.0); Calcium 9.5 mg/dL (8.4-10.2); Carbon Dioxide 23 mmol/L (22-32); Chloride 104 mmol/L (98-107); Estimated Glomerular Filt Rate > 60 mL/min (>60); Globulin 3.6 g/dL (1.7-4.1); Glucose 118 mg/dL (70-100); HEMOLYSIS < 15 (0-50); Potassium 4.4 mmol/L (3.4-5.1); Sodium 138 mmol/L (137-145); Total Protein 7.6 g/dL (6.3-8.2)
== END ==
PROVIDERS: PCP Family Medicine; Visit Provider Internal Medicine Infectious Disease
DX: T84.52XA Infection and inflammatory reaction due to internal left hip prosthesis, initial encounter (principal)
CPT/HCPCS: 80053; 85025; 86140

== ENCOUNTER → 2023-12-02 14:26 | Outpatient (CLI) | payer OTHER, SELFPAY ==
[2023-11-26 11:39] VITALS: BMI 38.7
[2023-12-02 20:43] LABS: Add Manual Diff / Slide Review NO; Basophils Absolute Auto 100 /uL (0-100); Basophils Percent Auto 0.8 % (0-2); Eosinophils Absolute Auto 100 /uL (0-450); Eosinophils Percent Auto 1.8 % (2-4); Hematocrit 33.2 % (41-53); Hemoglobin 11.1 g/dL (13.5-17.5); Lymphocytes Absolute Auto 1500 /uL (1100-4500); Lymphocytes Percent Auto 19.4 % (25-40); Mean Corpuscular HGB Conc 33.5 % (30-36); Mean Corpuscular Hemoglobin 29.3 PG (26-34); Mean Corpuscular Volume 87.4 fL (80-100); Monocytes Absolute Auto 500 /uL (0-900); Monocytes Percent Auto 6.2 % (3-14); Neutrophils Absolute Auto 5400 /uL (1500-7000); Neutrophils Percent Auto 71.8 % (50-75); Platelet Count 251 X10^3/uL (150-400); Red Cell Distribution Width 13.7 % (11.6-14.8); White Blood Cell Count 7.5 X10^3/uL (4.5-11.0)
[2023-12-02 20:53] LABS: Alanine Aminotransferase 8 IU/L (<50); Albumin 4.2 g/dL (3.5-5.0); Albumin Globulin Ratio 1.2 (1.0-2.8); Alkaline Phosphatase 141 U/L (38-126); Aspartate Aminotransferase 26 IU/L (17-59); BUN Creatinine Ratio 21.3 (6-22); Bilirubin Total 0.5 mg/dL (0.2-1.3); Blood Urea Nitrogen 23 mg/dL (9-20); C-Reactive Protein Quant 2.2 mg/dL (<1.0); Calcium 9.3 mg/dL (8.4-10.2); Carbon Dioxide 21 mmol/L (22-32); Chloride 103 mmol/L (98-107); Estimated Glomerular Filt Rate > 60 mL/min (>60); Globulin 3.6 g/dL (1.7-4.1); Glucose 94 mg/dL (70-100); HEMOLYSIS < 15 (0-50); Potassium 4.4 mmol/L (3.4-5.1); Sodium 136 mmol/L (137-145); Total Protein 7.8 g/dL (6.3-8.2)
== END ==
PROVIDERS: PCP Family Medicine; Visit Provider Internal Medicine Infectious Disease
DX: T84.52XA Infection and inflammatory reaction due to internal left hip prosthesis, initial encounter (principal)
CPT/HCPCS: 80053; 85025; 86140

== ENCOUNTER → 2024-01-25 11:44 | Outpatient (CLI) | payer OTHER, SELFPAY ==
[2023-11-26 11:39] VITALS: BMI 38.7
[2024-01-25 19:28] LABS: Add Manual Diff / Slide Review NO; Basophils Absolute Auto 0 /uL (0-100); Basophils Percent Auto 0.6 % (0-2); Eosinophils Absolute Auto 200 /uL (0-450); Hematocrit 39.8 % (41-53); Hemoglobin 13.2 g/dL (13.5-17.5); Lymphocytes Absolute Auto 2000 /uL (1100-4500); Lymphocytes Percent Auto 24.6 % (25-40); Mean Corpuscular HGB Conc 33.2 % (30-36); Mean Corpuscular Hemoglobin 28.8 PG (26-34); Mean Corpuscular Volume 86.8 fL (80-100); Monocytes Absolute Auto 300 /uL (0-900); Monocytes Percent Auto 4.2 % (3-14); Neutrophils Absolute Auto 5600 /uL (1500-7000); Neutrophils Percent Auto 68.6 % (50-75); Platelet Count 246 X10^3/uL (150-400); Red Blood Cell Count 4.59 X10^6/uL (4.5-5.9); Red Cell Distribution Width 14.4 % (11.6-14.8); White Blood Cell Count 8.2 X10^3/uL (4.5-11.0)
[2024-01-25 19:35] LABS: HEMOLYSIS < 15 (0-50); Iron 86 ug/dL (49-181)
[2024-01-25 19:41] LABS: Alanine Aminotransferase 20 IU/L (<50); Albumin 4.4 g/dL (3.5-5.0); Albumin Globulin Ratio 1.1 (1.0-2.8); Alkaline Phosphatase 123 U/L (38-126); Aspartate Aminotransferase 67 IU/L (17-59); BUN Creatinine Ratio 18.5 (6-22); Bilirubin Total 0.6 mg/dL (0.2-1.3); Blood Urea Nitrogen 25 mg/dL (9-20); C-Reactive Protein Quant 0.9 mg/dL (<1.0); Calcium 9.5 mg/dL (8.4-10.2); Carbon Dioxide 29 mmol/L (22-32); Chloride 102 mmol/L (98-107); Estimated Glomerular Filt Rate > 60 mL/min (>60); Globulin 3.9 g/dL (1.7-4.1); Glucose 98 mg/dL (70-100); HEMOLYSIS 15 (0-50); Potassium 4.4 mmol/L (3.4-5.1); Sodium 137 mmol/L (137-145); Total Protein 8.3 g/dL (6.3-8.2)
[2024-01-25 19:49] LABS: Percent Iron Saturation 30 % (20-50); Total Iron Binding Capacity 287 ug/dL (261-462); Transferrin 233 mg/dL (206-381)
[2024-01-25 19:56] LABS: Free T3, Triiodothyronine Free 3.88 pg/mL (2.77-5.27)
[2024-01-25 20:09] LABS: TSH w/ Reflex to FT4 2.58 uIU/mL (0.47-4.68)
[2024-01-25 20:11] LABS: Ferritin 127 ng/mL (18-464)
[2024-01-27 20:12] LABS: Free Kappa Lt Chains, Serum 42.8 mg/L (3.3-19.4); Free Lambda Lt Chains,Serum 22.5 mg/L (5.7-26.3)
[2024-01-28 14:09] LABS: Albumin 3.6 g/dL (2.9-4.4); Alpha-1-Globulin 0.3 g/dL (0.0-0.4); Alpha-2-Globulin 0.9 g/dL (0.4-1.0); Gamma Globulin 1.6 g/dL (0.4-1.8); Protein, Total 7.6 g/dL (6.0-8.5)
== END ==
PROVIDERS: PCP Family Medicine; Visit Provider Family Medicine
DX: R79.82 Elevated C-reactive protein (CRP) (principal); R00.0 Tachycardia, unspecified; R53.83 Other fatigue; R63.4 Abnormal weight loss; D64.9 Anemia, unspecified; N18.9 Chronic kidney disease, unspecified; L40.50 Arthropathic psoriasis, unspecified; R25.2 Cramp and spasm; I12.9 Hypertensive chronic kidney disease with stage 1 through stage 4 chronic kidney disease, or unspecified chronic kidney disease; M79.2 Neuralgia and neuritis, unspecified; R41.89 Other symptoms and signs involving cognitive functions and awareness; T81.9XXA Unspecified complication of procedure, initial encounter; R74.8 Abnormal levels of other serum enzymes; I10 Essential (primary) hypertension; E66.813 Obesity, class 3; Z68.41 Body mass index [BMI] 40.0-44.9, adult
CPT/HCPCS: 80053; 82728; 83540; 83550; 83883; 84155; 84165; 84443; 84481; 85025; 86140

== ENCOUNTER → 2024-03-16 09:21 | Outpatient (CLI) | payer OTHER, SELFPAY ==
[2023-11-26 11:39] VITALS: BMI 38.7
[2024-03-16 20:27] LABS: Alanine Aminotransferase 21 IU/L (<50); Albumin Globulin Ratio 1.3 (1.0-2.8); Alkaline Phosphatase 114 U/L (38-126); Aspartate Aminotransferase 34 IU/L (17-59); BUN Creatinine Ratio 17.4 (6-22); Bilirubin Total 0.5 mg/dL (0.2-1.3); Blood Urea Nitrogen 24 mg/dL (9-20); Calcium 9.3 mg/dL (8.4-10.2); Carbon Dioxide 26 mmol/L (22-32); Chloride 105 mmol/L (98-107); Estimated Glomerular Filt Rate 60 mL/min (>60); Globulin 3.2 g/dL (1.7-4.1); Glucose 101 mg/dL (70-100); HEMOLYSIS < 15 (0-50); Potassium 4.3 mmol/L (3.4-5.1); Sodium 135 mmol/L (137-145); Total Protein 7.2 g/dL (6.3-8.2)
== END ==
PROVIDERS: PCP Family Medicine; Visit Provider Family Medicine
DX: M79.2 Neuralgia and neuritis, unspecified (principal); R74.8 Abnormal levels of other serum enzymes; R76.8 Other specified abnormal immunological findings in serum; D64.9 Anemia, unspecified; R63.4 Abnormal weight loss; G62.9 Polyneuropathy, unspecified; R11.0 Nausea; E87.1 Hypo-osmolality and hyponatremia; R63.0 Anorexia; G89.29 Other chronic pain; M35.9 Systemic involvement of connective tissue, unspecified; I10 Essential (primary) hypertension
CPT/HCPCS: 80053; 82784; 83883; 84155; 86334; 86335

== ENCOUNTER → 2024-04-27 13:47 | Outpatient (CLI) | payer OTHER, SELFPAY ==
[2023-11-26 11:39] VITALS: BMI 38.7
[2024-04-27 20:25] LABS: Add Manual Diff / Slide Review NO; Basophils Absolute Auto 100 /uL (0-100); Basophils Percent Auto 0.7 % (0-2); Eosinophils Absolute Auto 100 /uL (0-450); Eosinophils Percent Auto 1.5 % (2-4); Hematocrit 40.7 % (41-53); Hemoglobin 13.7 g/dL (13.5-17.5); Lymphocytes Absolute Auto 1600 /uL (1100-4500); Lymphocytes Percent Auto 22.3 % (25-40); Mean Corpuscular HGB Conc 33.7 % (30-36); Mean Corpuscular Hemoglobin 29.7 PG (26-34); Mean Corpuscular Volume 88.2 fL (80-100); Monocytes Absolute Auto 500 /uL (0-900); Monocytes Percent Auto 6.7 % (3-14); Neutrophils Absolute Auto 5000 /uL (1500-7000); Neutrophils Percent Auto 68.8 % (50-75); Platelet Count 215 X10^3/uL (150-400); Red Blood Cell Count 4.62 X10^6/uL (4.5-5.9); Red Cell Distribution Width 13.4 % (11.6-14.8); White Blood Cell Count 7.2 X10^3/uL (4.5-11.0)
[2024-04-27 20:32] LABS: Alanine Aminotransferase 28 IU/L (<50); Albumin 4.3 g/dL (3.5-5.0); Albumin Globulin Ratio 1.4 (1.0-2.8); Alkaline Phosphatase 85 U/L (38-126); Aspartate Aminotransferase 39 IU/L (17-59); Bilirubin Total 0.6 mg/dL (0.2-1.3); Bilirubin Unconjugated 0.3 mg/dL (0.0-1.1); C-Reactive Protein Quant 0.6 mg/dL (<1.0); Estimated Glomerular Filt Rate > 60 mL/min (>60); HEMOLYSIS < 15 (0-50); Total Protein 7.3 g/dL (6.3-8.2)
== END ==
PROVIDERS: Internal Medicine Infectious Disease; PCP Family Medicine
DX: T84.59XD Infection and inflammatory reaction due to other internal joint prosthesis, subsequent encounter (principal); Z96.649 Presence of unspecified artificial hip joint
CPT/HCPCS: 80076; 82565; 85025; 86140

== ENCOUNTER → 2024-07-25 12:54 | Outpatient (CLI) | payer OTHER, SELFPAY ==
[2023-11-26 11:39] VITALS: BMI 38.7
[2024-07-25 19:03] LABS: Hematocrit 37.2 % (41-53); Hemoglobin 12.6 g/dL (13.5-17.5); Mean Corpuscular Hemoglobin 30.6 PG (26-34); Mean Corpuscular Volume 90.2 fL (80-100); Platelet Count 255 X10^3/uL (150-400); Red Blood Cell Count 4.12 X10^6/uL (4.5-5.9); Red Cell Distribution Width 14.2 % (11.6-14.8); White Blood Cell Count 5.7 X10^3/uL (4.5-11.0)
[2024-07-25 19:14] LABS: HEMOLYSIS < 15 (0-50); Iron 128 ug/dL (49-181)
[2024-07-25 19:15] LABS: Prothrombin Time 11.5 SECONDS (9.4-12.5)
[2024-07-25 19:17] LABS: Neutrophils Absolute Manual 3306 /uL (3000-5900); Total Cells Counted 100
[2024-07-25 19:18] LABS: PTT Partial Thromboplastin Tim 36 SECONDS (25.1-36.5); RBC Morphology Normal Morphology
[2024-07-25 19:19] LABS: Alanine Aminotransferase 34 IU/L (<50); Albumin 4.2 g/dL (3.5-5.0); Albumin Globulin Ratio 1.6 (1.0-2.8); Alkaline Phosphatase 82 U/L (38-126); Aspartate Aminotransferase 43 IU/L (17-59); BUN Creatinine Ratio 19.6 (6-22); Bilirubin Total 0.7 mg/dL (0.2-1.3); Blood Urea Nitrogen 22 mg/dL (9-20); C-Reactive Protein Quant < 0.5 mg/dL (<1.0); Calcium 9.4 mg/dL (8.4-10.2); Carbon Dioxide 24 mmol/L (22-32); Chloride 104 mmol/L (98-107); Estimated Glomerular Filt Rate > 60 mL/min (>60); Globulin 2.6 g/dL (1.7-4.1); Glucose 101 mg/dL (70-99); HEMOLYSIS < 15 (0-50); Potassium 4.4 mmol/L (3.4-5.1); Sodium 137 mmol/L (137-145); Total Protein 6.8 g/dL (6.3-8.2)
[2024-07-25 19:24] LABS: Erythrocyte Sedimentation Rate 34 MM/HR (0-15)
[2024-07-25 19:27] LABS: Percent Iron Saturation 50 % (20-50); Total Iron Binding Capacity 257 ug/dL (261-462); Transferrin 204 mg/dL (206-381)
[2024-07-25 19:42] LABS: Thyroid Stimulating Hormone 0.752 uIU/mL (0.47-4.68)
[2024-07-25 19:49] LABS: Prostate Specific Antigen Scrn 0.589 ng/mL (0.1-4.0)
[2024-07-25 19:53] LABS: Ferritin 135 ng/mL (18-464)
[2024-07-25 20:18] LABS: Folate > 20.0 ng/mL (2.76-20.0); Vitamin B12 461 pg/mL (239-931)
[2024-07-27 08:37] LABS: Interpretation Negative (Negative)
== END ==
PROVIDERS: Family Provider Family Medicine; PCP Family Medicine; Visit Provider Family Medicine
DX: Z12.5 Encounter for screening for malignant neoplasm of prostate (principal); D64.9 Anemia, unspecified; R63.0 Anorexia; M00.9 Pyogenic arthritis, unspecified; R23.3 Spontaneous ecchymoses; R53.83 Other fatigue; E87.1 Hypo-osmolality and hyponatremia; I10 Essential (primary) hypertension; R11.0 Nausea; R63.4 Abnormal weight loss
CPT/HCPCS: 80053; 82607; 82728; 82746; 83013; 83540; 83550; 84443; 85025; 85610; 85651; 85730; 86140; G0103

== ENCOUNTER 2024-07-28 10:18 | Outpatient (RCR) | payer OTHER, SELFPAY ==
[2023-11-26 11:39] VITALS: BMI 38.7
--- NOTE | 2024-07-28 16:34 | PT.OIE ---
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 Sommer Martinez PA-C Attending Provider Non-Staff Referring Provider Specialty: Rheumatology Address: [address] [place] [address], [phone] Email: Physical Therapy Initial Evaluation PT-OP-A Visit Information Start: 07/28/24 14:12 Freq: Status: Active Protocol: Document 07/28/24 10:45 DCW (Rec: 07/28/24 14:24 DCW [id number]) Out-Patient Physical Therapy Visit Information Visit Information Visit Type Initial Evaluation Visit Start Time 10:45 Visit Stop Time 11:30 Visit Number 1 Number of ASSISTED LIVING COORDINATOR Visits 0 Evaluation Information Evaluation Date 07/28/24 PT-OP-B Current Condition Start: 07/28/24 14:12 Freq: Status: Active Protocol: Document 07/28/24 10:45 DCW (Rec: 07/28/24 14:24 DC [id number]) Current Condition History of Current Condition Onset Date 6-7 year history Current Complaints Cervical pain, stiffness History of Current Condition Pt is a 58 year old male presenting with a 6-7 year history of cervical dysfunction. For the past 1.5 years, his neck has been so limited with mobility that he has largely been unable to drive, because he can't look for traffic. Admits he didn't take care of myself for 10 years, just worked and drank and worked and drank, and is now in the process of trying to get healthier. Gets occasional numbness in his head, mainly right-sided parietal region. Fairly significant pain at all times, very limited with his activity participation. Does have a history of psoriatic arthritis, which significantly impacts his joint mobility. Prior Treatments and Tests Cervical X-ray: IMPRESSION: Large bridging anterior cervical spine osteophytes. per Eduar Jimenez M.D. on 2022 PT-OP-C Subjective Start: 07/28/24 14:12 Freq: Status: Active Protocol: Document 07/28/24 10:45 DCW (Rec: 07/28/24 16:34 DCW [id number]) OP-PT Subjective Patient Comments Patient Comments I know I'm a mess, but if I can get my neck working, the rest will follow. Patient Questionnaires Neck Disability Index NDI Score 32/50 = 64% Neck Disability Index Impairment 60 to 79% Impaired (Score 30- 39) OP-PT Pain Assessment Pain Assessment Grid Paper Pain Assessment Grid Completed Yes: See scan PT-OP-F Manual Assessment Start: 07/28/24 14:12 Freq: Status: Active Protocol: Document 07/28/24 10:45 DCW (Rec: 07/28/24 16:34 DCW [id number]) Manual Assessments Soft Tissue Assessment Soft Tissue Mobility Assessment Moderate-severe tone with tenderness to palpation 3/4: wincing and withdraw along paraspinals, upper trap, scalenes, and SCM, R>L Joint Mobility Assessment Joint Mobility Assessment Substantial hypomobility of cervical vertebra PT-OP-K Range of Motion Start: 07/28/24 14:12 Freq: Status: Active Protocol: Document 07/28/24 10:45 DCW (Rec: 07/28/24 16:34 DCW [id number]) Cervical Spine Range of Motion Cervical Spine Active Degrees Testing Position Sitting Flexion 15 Extension 25 Rotation Left 17 Rotation Right 21 Lateral Flexion Left 12 Lateral Flexion Right 7 ROM Limitations Soft Tissue Tightness,Bony Restriction,Muscle Tone,Pain PT-OP-L Special Tests Start: 07/28/24 14:12 Freq: Status: Active Protocol: Document 07/28/24 10:45 DCW (Rec: 07/28/24 16:34 DCW [id number]) Special Tests Cervical Spine Special Tests Traction Test Results Negative Spurling's Test Test Results Negative Foraminal Compression Test Results Negative Alar Ligament Test Results Negative PT-OP-Q Treatments Start: 07/28/24 14:12 Freq: Status: Active Protocol: Document 07/28/24 10:45 DCW (Rec: 07/28/24 14:24 DCW [id number]) Therapeutic Exercises Supine Exercises Chin Tuck Supine Exercise Name Chin Tuck Sitting Exercises Cervical Isometrics Sitting Exercise Name Isometric cervical extension, lateral flexion Side bilateral Resistance Lv 3 PT-OP-T Assessment and Plan Start: 07/28/24 14:12 Freq: Status: Active Protocol: Document 07/28/24 10:45 DCW (Rec: 07/28/24 16:34 DCW [id number]) Physical Therapy Assessment Rehab Potential Rehabilitation Potential Fair Evaluation Complexity Number of Personal Factors/Comorbidities 3 or More Number of Body Systems Impaired 4 or More Clinical Presentation at Evaluation Unstable Impairments Impairments Activity Tolerance,Functional Activities,Functional Mobility ,Posture,ROM,Soft Tissue Mobility,Strength,Tone Goals Three Impairment Significant hypomobility of cervical vertebrae Care Home Goal (LTG) Pt to demonstrate ability to hold head into neutral postural position 50% of the time without cues in order to display improved functional vertebral mobility. LTG Duration 09/27/24 Two Impairment Pt displays significant decrease in cervical ROM ( rotation L 17?, R 21?) Care Home Goal (LTG) Pt to demonstrate improved cervical rotation bilaterally to at least 35? in order to improve ability to turn his head to look at traffic LTG Duration 09/27/24 One Impairment Pt does not have an appropriate home exercise program Short Term Goal (STG) Pt to be independent and complaint with an appropriate HEP STG Duration 08/28/24 Assessment Summary Assessment Pt presents with signs and symptoms consistent with referring diagnosis. Pt exhibits severe limitations of cervical mobility and function, likely at least partially impacted by history of psoriatic arthritis. Increased soft tissue tone and joint hypomobility impact most activities, pt has not been able to drive for ~1.5 years due to inability to look for oncoming traffic. Experiences significant pain in addition to immobility. Pt may benefit from skilled therapy focusing on STM, ROM, functional mobility, and strengthening. Limitations to ROM will impact pt's ability to perform stretching to help decrease soft tissue tone. Will likely need to focus on STM, joint mobs, and strengthening to begin with, in hopes to increased ROM enough to allow for self- stretching. Physical Therapy Plan Frequency and Duration Frequency of Treatment 1-2x/week Plan of Care Start Date 07/28/24 Plan of Care End Date 09/27/24 Therapeutic Interventions Therapeutic Interventions Home Exercise Program,Manual Therapy,Neuromuscular Re- education,Patient/Caregiver Education,Self-Care/Home Management,Soft Tissue Mobilization,Therapeutic Activities,Therapeutic Exercises Modalities Cold Pack/Ice Massage,Hot Packs Next Visit Focus/Plan Next Note Type Treatment Note Next Visit Plan STM, joint mobility, cervical strengthening as tolerated
--- NOTE | 2024-07-28 16:35 | PT.OPPOC ---
Physical, Occupational & Speech Therapy At [facility] Current Diagnoses Arthropathic psoriasis, unspecified (07/28/24) Stiffness of other specified joint, not elsewhere classified (07/28/24) Cervical disc disorder with myelopathy, unspecified cervical region (07/28/24) Visit Care Team Role Provider Type Jailene Addison MD Family Provider Physician Primary Care Provider Specialty: Family Practice Address: [address] [place] [address], [address] Email: [email or web address] Sommer Martinez PA-C Attending Provider Non-Staff Referring Provider Specialty: Rheumatology Address: [address] [place], [address] Email: Plan Of Care PT-OP-B Current Condition Start: 07/28/24 14:12 Freq: Status: Active Protocol: Document 07/28/24 10:45 DCW (Rec: 07/28/24 14:24 DCW [id number]) Current Condition History of Current Condition Onset Date 6-7 year history Current Complaints Cervical pain, stiffness History of Current Condition Pt is a 58 year old male presenting with a 6-7 year history of cervical dysfunction. For the past 1.5 years, his neck has been so limited with mobility that he has largely been unable to drive, because he can't look for traffic. Admits he didn't take care of myself for 10 years, just worked and drank and worked and drank, and is now in the process of trying to get healthier. Gets occasional numbness in his head, mainly right-sided parietal region. Fairly significant pain at all times, very limited with his activity participation. Does have a history of psoriatic arthritis, which significantly impacts his joint mobility. Prior Treatments and Tests Cervical X-ray: IMPRESSION: Large bridging anterior cervical spine osteophytes. per Eduar Jimenez M.D. on 2022 PT-OP-T Assessment and Plan Start: 07/28/24 14:12 Freq: Status: Active Protocol: Document 07/28/24 10:45 DCW (Rec: 07/28/24 16:34 [facility] [id number]) Physical Therapy Assessment Rehab Potential Rehabilitation Potential Fair Evaluation Complexity Number of Personal Factors/Comorbidities 3 or More Number of Body Systems Impaired 4 or More Clinical Presentation at Evaluation Unstable Impairments Impairments Activity Tolerance,Functional Activities,Functional Mobility ,Posture,ROM,Soft Tissue Mobility,Strength,Tone Goals Three Impairment Significant hypomobility of cervical vertebrae Construction Administrative Assistant Goal (LTG) Pt to demonstrate ability to hold head into neutral postural position 50% of the time without cues in order to display improved functional vertebral mobility. LTG Duration 09/27/24 Two Impairment Pt displays significant decrease in cervical ROM ( rotation L 17?, R 21?) Construction Administrative Assistant Goal (LTG) Pt to demonstrate improved cervical rotation bilaterally to at least 35? in order to improve ability to turn his head to look at traffic LTG Duration 09/27/24 One Impairment Pt does not have an appropriate home exercise program Short Term Goal (STG) Pt to be independent and complaint with an appropriate HEP STG Duration 08/28/24 Assessment Summary Assessment Pt presents with signs and symptoms consistent with referring diagnosis. Pt exhibits severe limitations of cervical mobility and function, likely at least partially impacted by history of psoriatic arthritis. Increased soft tissue tone and joint hypomobility impact most activities, pt has not been able to drive for ~1.5 years due to inability to look for oncoming traffic. Experiences significant pain in addition to immobility. Pt may benefit from skilled therapy focusing on STM, ROM, functional mobility, and strengthening. Limitations to ROM will impact pt's ability to perform stretching to help decrease soft tissue tone. Will likely need to focus on STM, joint mobs, and strengthening to begin with, in hopes to increased ROM enough to allow for self- stretching. Physical Therapy Plan Frequency and Duration Frequency of Treatment 1-2x/week Plan of Care Start Date 07/28/24 Plan of Care End Date 09/27/24 Therapeutic Interventions Therapeutic Interventions Home Exercise Program,Manual Therapy,Neuromuscular Re- education,Patient/Caregiver Education,Self-Care/Home Management,Soft Tissue Mobilization,Therapeutic Activities,Therapeutic Exercises Modalities Cold Pack/Ice Massage,Hot Packs Next Visit Focus/Plan Next Note Type Treatment Note Next Visit Plan STM, joint mobility, cervical strengthening as tolerated Plan of Care Dates Plan of Care Start Date 07/28/24 Plan of Care End Date 09/27/24 Electronically Signed by: Justin Diaz, PT 07/28/24 2426 If you are in agreement with this Plan of Care, please return a signed and dated copy. I have reviewed this Plan of Care and certify that the skilled therapy services above are required to meet the patient?s needs. Physician Signature Date Printed Name and Credentials Clinical Instructor Signature Printed Name and Credentials
--- NOTE | 2024-08-03 10:09 | PT-OP ANOTE ---
Phoned patient, left message regarding no show policy, ie discharge from PT with 2 no shows, and charges. Also, left time and date of next appointment and phone number for frontload driver.
--- NOTE | 2024-08-11 15:23 | PT.OPDS ---
Current Diagnoses Arthropathic psoriasis, unspecified (07/28/24) Stiffness of other specified joint, not elsewhere classified (07/28/24) Cervical disc disorder with myelopathy, unspecified cervical region (07/28/24) Visit Care Team Role Provider Type Jailene Addison MD Family Provider Physician Primary Care Provider Specialty: Family Practice Address: [address] [place] [address], [address] Email: [email or web address] Sommer Martinez PA-C Attending Provider Non-Staff Referring Provider Specialty: Rheumatology Address: [address] [place], [address] Email: Visit Number Visit Number 1 Discharge Summary PT-OP-B Current Condition Start: 07/28/24 14:12 Freq: Status: Active Protocol: Document 07/28/24 10:45 DCW (Rec: 07/28/24 14:24 DCW [id number]) Current Condition History of Current Condition Onset Date 6-7 year history Current Complaints Cervical pain, stiffness History of Current Condition Pt is a 58 year old male presenting with a 6-7 year history of cervical dysfunction. For the past 1.5 years, his neck has been so limited with mobility that he has largely been unable to drive, because he can't look for traffic. Admits he didn't take care of myself for 10 years, just worked and drank and worked and drank, and is now in the process of trying to get healthier. Gets occasional numbness in his head, mainly right-sided parietal region. Fairly significant pain at all times, very limited with his activity participation. Does have a history of psoriatic arthritis, which significantly impacts his joint mobility. Prior Treatments and Tests Cervical X-ray: IMPRESSION: Large bridging anterior cervical spine osteophytes. per Eduar Jimenez M.D. on 2022 PT-OP-C Subjective Start: 07/28/24 14:12 Freq: Status: Active Protocol: Document 07/28/24 10:45 DCW (Rec: 07/28/24 16:34 DCW [id number]) OP-PT Subjective Patient Comments Patient Comments I know I'm a mess, but if I can get my neck working, the rest will follow. Patient Questionnaires Neck Disability Index NDI Score 32/50 = 64% Neck Disability Index Impairment 60 to 79% Impaired (Score 30- 39) OP-PT Pain Assessment Pain Assessment Grid Paper Pain Assessment Grid Completed Yes: See scan PT-OP-F Manual Assessment Start: 07/28/24 14:12 Freq: Status: Active Protocol: Document 07/28/24 10:45 DCW (Rec: 07/28/24 16:34 DCW [id number]) Manual Assessments Soft Tissue Assessment Soft Tissue Mobility Assessment Moderate-severe tone with tenderness to palpation 3/4: wincing and withdraw along paraspinals, upper trap, scalenes, and SCM, R>L Joint Mobility Assessment Joint Mobility Assessment Substantial hypomobility of cervical vertebra PT-OP-K Range of Motion Start: 07/28/24 14:12 Freq: Status: Active Protocol: Document 07/28/24 10:45 DCW (Rec: 07/28/24 16:34 DCW [id number]) Cervical Spine Range of Motion Cervical Spine Active Degrees Testing Position Sitting Flexion 15 Extension 25 Rotation Left 17 Rotation Right 21 Lateral Flexion Left 12 Lateral Flexion Right 7 ROM Limitations Soft Tissue Tightness,Bony Restriction,Muscle Tone,Pain PT-OP-L Special Tests Start: 07/28/24 14:12 Freq: Status: Active Protocol: Document 07/28/24 10:45 DCW (Rec: 07/28/24 16:34 DCW [id number]) Special Tests Cervical Spine Special Tests Traction Test Results Negative Spurling's Test Test Results Negative Foraminal Compression Test Results Negative Alar Ligament Test Results Negative PT-OP-T Assessment and Plan Start: 07/28/24 14:12 Freq: Status: Active Protocol: Document 08/11/24 15:22 DCW (Rec: 08/11/24 15:23 DCW [id number]) Physical Therapy Assessment Assessment Summary Assessment Of pt's four post-eval visits, three were canceled and one was a no-show. Pt has not been seen since eval, has no remaining appointments. Per attendance policy, pt will be discharged from skilled PT at this time, will require a new referral in order to return to skilled therapy. Physical Therapy Plan Discharge Physical Therapy Discharge Reasons No Longer Attending PT Next Visit Focus/Plan Next Note Type Discharge Summary
== END 2024-08-15 09:43 | disposition home or self-care (01) ==
LOC: PHYS 10:18
PROVIDERS: Family Provider Family Medicine; PCP Family Medicine; Referring Provider Specialist/Technologist Athletic Trainer; Visit Provider Specialist/Technologist Athletic Trainer
DX: M25.69 Stiffness of other specified joint, not elsewhere classified (principal); L40.50 Arthropathic psoriasis, unspecified
CPT/HCPCS: 97110; 97163

== ENCOUNTER → 2024-09-18 10:28 | Outpatient (CLI) | payer OTHER, SELFPAY ==
[2023-11-26 11:39] VITALS: BMI 38.7
--- NOTE | 2024-09-18 10:30 | DI.MRI.S_ITS ---
PROCEDURE: MR LUMBAR SPINE WO CON INDICATIONS: Nerve compression-severe pain, determine Dx- vs. DISH TECHNIQUE: Noncontrast sagittal T1 spin echo and T2 fast echo, sagittal STIR, and T2 fast spin echo through the lumbar spine. In cases with scoliosis, additional coronal T2 fast spin echo may be performed. COMPARISON: None. FINDINGS: Image quality: Motion degraded. Alignment and Curvature: There is normal bony alignment. Bone Marrow: Marrow is of normal overall signal. No acute vertebral body compression fractures. Spinal Cord: Conus medullaris terminates at the L1 level. Visualized cord demonstrates normal signal and size. Paraspinous Soft Tissues: No paravertebral masses. T12-L1: Facet arthropathy. Mild central canal stenosis. Mild bilateral neural foraminal stenosis. L1-L2: Disc desiccation. Facet hypertrophy. Moderate central canal stenosis. Severe right and moderate left neural foraminal stenosis. L2-L3: Facet hypertrophy. Moderate central canal stenosis. Mild bilateral neural foraminal stenosis. L3-L4: Disc desiccation and mild height loss. Mild disc bulge. Facet hypertrophy. Severe central canal stenosis. Severe right and moderate left neural foraminal stenosis. L4-L5: Postoperative changes from left hemilaminotomy. Disc desiccation and mild disc bulge. Facet hypertrophy. Mild to moderate central canal stenosis. Severe right and moderate left neural foraminal stenosis. L5-S1: Disc desiccation and mild disc bulge with posterior annular tear. Facet arthropathy. Mild central canal stenosis. Moderate bilateral neural foraminal stenosis. IMPRESSION: 1. Multilevel degenerative changes of the lumbar spine as described above. 2. Severe central canal stenosis at L3-L4. 3. Severe neural foraminal stenosis on the right L1-L2, L3-L4 and L4-5. Dictated by: James Rodriguez M.D. on 09/18/2024 at 13:50 Approved by: James Rodriguez M.D. on 09/18/2024 at 13:55
--- NOTE | 2024-09-18 10:30 | DI.MRI.S_ITS ---
PROCEDURE: MR THORACIC SPINE WO CON INDICATIONS: Nerve compression-severe pain, determine Dx- vs. DISH TECHNIQUE: Noncontrast sagittal T1 spine echo and T2 fast spin echo, sagittal STIR, and T2 fast spin echo through the thoracic spine. COMPARISON: None. FINDINGS: Image quality: Excellent. Alignment and Curvature: There is normal bony alignment. Bone Marrow: Marrow is of normal overall signal. No acute vertebral body compression fractures. Spinal Cord: Visualized spinal cord is normal in size and signal. Paraspinous Soft Tissues: No paravertebral masses. Miscellaneous: Multilevel degenerative changes with multilevel disc desiccation, height loss and disc bulges. Multilevel facet arthropathy. Moderate central canal stenosis at C7-T1. Moderate to severe central canal stenosis at T2-T3. Mild multilevel central canal stenosis at other levels. Multilevel mild neural foraminal stenosis. No severe neural foraminal stenosis is appreciated. IMPRESSION: Multilevel degenerative changes of the thoracic spine as described above. There is moderate to severe central canal stenosis at T2-T3. Dictated by: James Rodriguez M.D. on 09/18/2024 at 13:36 Approved by: James Rodriguez M.D. on 09/18/2024 at 13:40
== END ==
LOC: MRI 10:29
PROVIDERS: Family Provider Family Medicine; PCP Family Medicine; Referring Provider Family Medicine; Visit Provider Family Medicine
DX: M54.12 Radiculopathy, cervical region (principal); M48.02 Spinal stenosis, cervical region; M47.24 Other spondylosis with radiculopathy, thoracic region; M48.04 Spinal stenosis, thoracic region; M48.10 Ankylosing hyperostosis [Forestier], site unspecified; M51.16 Intervertebral disc disorders with radiculopathy, lumbar region; M47.26 Other spondylosis with radiculopathy, lumbar region; M47.27 Other spondylosis with radiculopathy, lumbosacral region; M48.061 Spinal stenosis, lumbar region without neurogenic claudication; M48.07 Spinal stenosis, lumbosacral region; G89.29 Other chronic pain
CPT/HCPCS: 72146; 72148

== ENCOUNTER → 2024-12-28 08:00 | Outpatient (CLI) | payer OTHER, SELFPAY ==
[2024-09-27 13:11] VITALS: BMI 38.7
--- NOTE | 2024-12-28 08:01 | DI.MRI.S_ITS ---
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 After the administration of contrast, axial and coronal and sagittal T1 spin echo with fat saturation through the brain. COMPARISON: Outside Facility, MR, MR HEAD/BRAIN WO CON, 11/24/2022, 12:54. FINDINGS: Image quality: Excellent. CSF spaces: Basal cisterns are patent. No extra-axial fluid collections. Ventricles are normal in size and shape. Brain: No midline shift. No intracranial bleeds or masses. No abnormal intracranial enhancement. There is cerebral volume loss for age. There is periventricular white matter chronic small vessel ischemic change. The brainstem appears normal. Diffusion-weighted images demonstrate no acute infarct. No chronic ischemic insults. Normal intravascular flow voids are present. The bilateral 7/8 nerve complex, as well as the trigeminal nerves and ganglia are within normal limits, without abnormal enhancement. Skull and face: Calvarial marrow is normal in signal. Orbits appear normal. Sinuses: Sinuses and mastoids appear clear. IMPRESSION: 1. Volume loss and small vessel ischemic disease. 2. No acute process. No recent infarct. 3. No explanation for trigeminal neuralgia. Dictated by: Rosetta Knight M.D. on 12/28/2024 at 10:33 Approved by: Rosetta Knight M.D. on 12/28/2024 at 10:37
== END ==
LOC: MRI 08:00
PROVIDERS: PCP Family Medicine; Referring Provider Family Medicine; Visit Provider Family Medicine
DX: G50.9 Disorder of trigeminal nerve, unspecified (principal)
CPT/HCPCS: 70553; A9579